=== PATIENT | female | born 1940 | race Caucasian/White ===

== ENCOUNTER 2016-10-24 17:19 | Inpatient (IN) | payer MEDICARE, BC ==
[2016-10-24] MEDS ORDERED: HEPARIN SODIUM,PORCINE/D5W PMX 25,000 UNIT in DEXTROSE/WATER 1 500ML.BAG IV STA (20:55)
[2016-10-24] MEDS ORDERED: ONDANSETRON 4 MG/2 ML VIAL IVP STA (20:55)
[2016-10-24] MEDS ORDERED: MORPHINE SULFATE 4 MG/ML SYRINGE IV STA (20:55)
[2016-10-24] MEDS ORDERED: METOPROLOL TARTRATE 25 MG TAB PO PRN (20:57)
[2016-10-24] MEDS ORDERED: ALPRAZolam 0.25 MG TAB PO SCH (21:00)
[2016-10-24] MEDS ORDERED: ATORVASTATIN 10 MG TAB PO SCH (21:00)
[2016-10-24] MEDS ORDERED: NITROGLYCERIN-D5W PMX 50 MG in DEXTROSE/WATER 1 250ML.BAG IV SCH (21:00)
[2016-10-24] MEDS: LISINOPRIL 20 MG TAB PO SCH (22:16)
[2016-10-24 22:29] LABS: Basophils % (A) 1 %; CH 28.9; CHCM 32.8; Eosinophils # (A) 0.1 k/uL (0-0.7); Eosinophils % (A) 2 %; HCT 38.9 % (34.0-46.0); HDW 2.41; HGB 12.4 gm/dL (11.4-16.0); Luc # (Auto) 0.13; Luc % (Auto) 2; Lymphocytes # (A) 1.7 k/uL (1.0-4.8); Lymphocytes % (A) 24 %; MCH 28.3 pg (25.0-35.0); MCV 88.4 fL (80.0-100.0); Monocytes # (A) 0.5 k/uL (0-1.0); Monocytes % (A) 7 %; Neutrophils # (A) 4.5 k/uL (1.3-7.7); Neutrophils % (A) 65 %; RBC 4.41 m/uL (3.80-5.40); RDW 13.6 % (11.5-15.5); WBC 6.9 k/uL (3.8-10.6); WBC (Perox) 7.14
[2016-10-24 22:40] LABS: ALT 25 U/L (9-52); AST 14 U/L (14-36); Alkaline Phosphatase 58 U/L (38-126); Anion Gap 11 mmol/L; Blood Urea Nitrogen 21 mg/dL (7-17); Calcium 9.3 mg/dL (8.4-10.2); Carbon Dioxide 27 mmol/L (22-30); Chloride 105 mmol/L (98-107); Glucose 113 mg/dL (74-99); Non-African American GFR(MDRD) >60 (>60 ml/min/1.73 sqM); Potassium 3.9 mmol/L (3.5-5.1); Sodium 143 mmol/L (137-145); Total Bilirubin 0.7 mg/dL (0.2-1.3); Total Protein 6.4 g/dL (6.3-8.2)
--- NOTE | 2016-10-24 22:48 | XR ---
EXAMINATION TYPE: XR chest 2V DATE OF EXAM: 10/24/2016 10:31 PM COMPARISON: 11/25/2009 HISTORY: Chest pressure TECHNIQUE: Frontal and lateral views of the chest are obtained. FINDINGS: There is no heart failure nor confluent pneumonic infiltrate. Costophrenic angles are amish r. There are chest leads. There is a thoracic dextroscoliosis. IMPRESSION: No active cardiopulmonary disease. No change.
[2016-10-24 22:52] LABS: Creatine Kinase 41 U/L (30-135); INR 2.2 (<1.1); Partial Thromboplastin Time 28.7 sec (22.0-30.0); Prothrombin Time 20.9 sec (9.0-12.0)
[2016-10-24 23:05] LABS: Creatine Kinase MB 0.9 ng/mL (0.0-2.4); Troponin I <0.012 ng/mL (0.000-0.034)
[2016-10-25] MEDS: NITROGLYCERIN OINT 1 INCH/GM PACKET TOPICAL SCH ×2 (00:08→06:48)
[2016-10-25] MEDS: LISINOPRIL 20 MG TAB PO SCH (06:48)
[2016-10-25 08:33] LABS: INR 2.2 (<1.1); Prothrombin Time 21.1 sec (9.0-12.0)
[2016-10-25 08:41] LABS: Anion Gap 10 mmol/L; Blood Urea Nitrogen 19 mg/dL (7-17); Calcium 9.2 mg/dL (8.4-10.2); Carbon Dioxide 26 mmol/L (22-30); Chloride 107 mmol/L (98-107); Glucose 91 mg/dL (74-99); Non-African American GFR(MDRD) >60 (>60 ml/min/1.73 sqM); Sodium 143 mmol/L (137-145)
[2016-10-25] MEDS ORDERED: ALPRAZolam 0.25 MG TAB PO PRN (08:46)
[2016-10-25] MEDS ORDERED: SODIUM CHLORIDE 0.9% 1,000 ML in EMPTY BAG 1 BAG IV ONE (08:46)
[2016-10-25] MEDS ORDERED: ASPIRIN 325 MG TAB PO STA (08:46)
[2016-10-25] MEDS ORDERED: ALPRAZolam 0.5 MG TAB PO PRN (08:46)
[2016-10-25] MEDS ORDERED: NITROGLYCERIN SL TABS 0.4 MG TAB SUBLINGUAL PRN (08:46)
[2016-10-25] MEDS ORDERED: ATORVASTATIN 80 MG TAB PO STA (08:46)
[2016-10-25] MEDS ORDERED: ASPIRIN 81 MG CHEW PO SCH (09:00)
[2016-10-25 10:19] VITALS: RESP 18
--- NOTE | 2016-10-25 10:38 | CONS ---
DATE OF CONSULTATION: Mrs. Dudley is a 76-year-old lady with a known history of hypertension, hypercholesterolemia, SVT, status post radiofrequency ablation who also has paroxysmal atrial fibrillation. This lady had a stress test in September, which was unremarkable. However, she went to [facility] with complaints of chest heaviness and pressure across her chest with abnormal EKG with precordial ST depression and prominent R waves in precordial leads raising the possibility of ischemia. She received sublingual nitroglycerin and felt better and the chest pain symptoms were resolved. She was then transferred here for followup and coronary angiography. This lady has history of previous cardiac cath more than 5 years ago, which revealed moderate disease in circumflex coronary artery and she had a dominant right coronary artery. She has a small PFO as well. In view of her symptomatology, presentation, EKG changes, she has been transferred to [facility] and I have advised her to have a cardiac catheterization. I explained to her the rationale, the risks, benefits, and options. She understands all details and wishes to proceed with the procedure. PAST MEDICAL HISTORY: 1. Hypertension. 2. Hypercholesterolemia. 3. History of SVT, status post radiofrequency ablation. 4. Paroxysmal atrial fibrillation on Coumadin maintaining sinus rhythm. 5. History of previous cardiac catheterization for chest pain, which did not reveal significant disease. Medications at home include Coumadin, Accupril, aspirin, Crestor, Xanax p.r.n. On examination, blood pressure is 130/70, pulse rate is about 70 per minute, regular. HEENT: Unremarkable. Fundus was not examined by me. Neck is supple. No JVD. I do not hear a carotid bruit. Heart exam reveals S1 and S2 heard normally without a rub, murmur or gallop. Lungs are clear. Abdomen is soft, nontender. Lower extremities reveal normal pulses. No edema. Central nervous system is normal. Initial EKG at [facility] reveals sinus mechanism with precordial ST depression and prominent R waves. Repeat EKG after sublingual nitroglycerin showed remarkable improvement. IMPRESSION: 1. Unstable angina. 2. Hypertension. 3. Hyperlipidemia. 4. History of supraventricular tachycardia, status post radiofrequency ablation. 5. History of paroxysmal atrial fibrillation on anticoagulation. RECOMMENDATIONS: I have advised coronary angiography. Risks, benefits, options and rationale were explained to the patient. She understands all details and wishes to proceed with the procedure. Her PT, INR will be checked today. She did not receive any Coumadin yesterday. I discussed my thoughts in detail with the patient. We will repeat a PT, INR and then make recommendations for cardiac catheterization.
[2016-10-25] MEDS ORDERED: LIDOCAINE 2% INJ 20 MG/ML (20 ML MDV) ONE (10:44)
[2016-10-25] MEDS ORDERED: SODIUM CHLORIDE 0.9% (PF) 10 ML VIAL ONE (10:44)
[2016-10-25] MEDS ORDERED: MIDAZOLAM 2 MG/2 ML VIAL ONE (10:44)
[2016-10-25] MEDS ORDERED: VERAPAMIL 2.5 MG/ML 2 ML AMP ONE (10:44)
[2016-10-25] MEDS ORDERED: MIDAZOLAM 2 MG/2 ML VIAL IV ONE (11:04)
[2016-10-25] MEDS ORDERED: HEPARIN SODIUM 1,000 UNIT/ML VIAL ONE (11:05)
[2016-10-25] MEDS ORDERED: LIDOCAINE 2% INJ 20 MG/ML SQ ONE (11:07)
[2016-10-25] MEDS ORDERED: VERAPAMIL SYRINGE (5 MG/10 ML) INTRAARTER ONE (11:09)
[2016-10-25] MEDS ORDERED: IOHEXOL 350 MG/ML 100 ML BOTTLE INJ ONE (11:21)
[2016-10-25] MEDS ORDERED: NITROGLYCERIN SL TABS 0.4 MG TAB SUBLINGUAL ONE ×2 (11:22→11:27)
[2016-10-25] MEDS ORDERED: SODIUM CHLORIDE 0.9% 1,000 ML IV ONE (11:24)
[2016-10-25] MEDS ORDERED: RX INFO: IV CONTRAST WAS GIVEN 1 EACH MISC MISCELLANE PRN (11:41)
[2016-10-25] MEDS ORDERED: SODIUM CHLORIDE 0.9% 1,000 ML IV SCH (11:45)
[2016-10-25 15:43] VITALS: PULSE 58
[2016-10-25 15:45] VITALS: BP 129/60; TEMP 97.7
--- NOTE | 2016-10-25 16:28 | HP ---
H&P AND DISCHARGE SUMMARY DATE OF ADMISSION: Patient is a 76-year-old pleasant female who was transferred to my care from [facility] because of some EKG changes and chest pressure-like sensation. Patient apparently has history of SVT. Patient appears to have palpitations and SVT with pressure, because of which there was concern about acute coronary syndrome, because of which patient was transferred here for cardiac catheterization. Patient underwent coronary angiography which did not show any significant stentable lesions. Please refer to kiln pusher's dictation for further details. Patient denied any pleuritic chest pain. Patient's chest pain is completely resolved at this point of time. Patient's chest pain was not associated with food. Patient was a little short of breath at that time, but patient denies any diaphoresis or shortness of breath now. REVIEW OF SYSTEMS: CONSTITUTIONAL: No fever, no malaise, no fatigue. HEENT: No recent visual problems or hearing problems. Denied any sore throat. CARDIOVASCULAR: No chest pain, orthopnea, PND, no palpitations, no syncope. PULMONARY: No shortness of breath, no cough, no hemoptysis. GASTROINTESTINAL: No diarrhea, no nausea, no vomiting, no abdominal pain. Normoactive bowel sounds. NEUROLOGICAL: No headaches, no weakness, no numbness. HEMATOLOGICAL: Denies any bleeding or petechiae. GENITOURINARY: Denies any burning micturition, frequency, or urgency. MUSCULOSKELETAL/RHEUMATOLOGICAL: Denies any joint pain, swelling, or any muscle pain. ENDOCRINE: Denies any polyuria or polydipsia. The rest of the 14 point review of systems is negative. PAST MEDICAL HISTORY: 1. Hypertension. 2. Hypercholesterolemia. 3. History of SVT. 4. Paroxysmal atrial fibrillation, on Coumadin. Patient is therapeutic on Coumadin. 5. Anxiety disorder. PAST SURGICAL HISTORY: 1. Appendectomy. 2. Cardiac ablation surgery. 3. Cholecystectomy. 4. Hysterectomy. 5. Joint replacement surgery. 6. Varicose veins. SOCIAL HISTORY: Denied any smoking, alcohol abuse or any drug abuse. FAMILY HISTORY: Significant for pancreatic cancer in the family. PHYSICAL EXAMINATION: VITAL SIGNS: Temperature 97.2, pulse of 58, respiratory rate of 18. Blood pressure is 139/69. Saturating at 96% on room air. GENERAL: The patient is alert and oriented x3, not in any acute distress. Well developed, well nourished. HEENT: Pupils are round and equally reacting to light. EOMI. No scleral icterus. No conjunctival pallor. Normocephalic, atraumatic. No pharyngeal erythema. No thyromegaly. CARDIOVASCULAR: S1 and S2 present. No murmurs, rubs, or gallops. PULMONARY: Chest is clear to auscultation, no wheezing or crackles. ABDOMEN: Soft, nontender, nondistended, normoactive bowel sounds. No palpable organomegaly. MUSCULOSKELETAL: No joint swelling or deformity. EXTREMITIES: No cyanosis, clubbing, or pedal edema. NEUROLOGICAL: Gross neurological examination did not reveal any focal deficits. SKIN: No rashes. LABORATORY DATA: CBC, CMP essentially within normal limits. INR is therapeutic. ASSESSMENT AND PLAN: 1. Chest pain. Ruled out unstable angina. Patient underwent cardiac catheterization which did not show any significant coronary occlusion. Patient's chest pressure is probably related to her episode of SVT or atrial fibrillation. 2. Paroxysmal atrial fibrillation. 3. Hypertension. 4. Hyperlipidemia. 5. Gastroesophageal reflux disease. Patient is otherwise clinically doing well. Underwent cardiac catheterization. Is cleared for discharge by Dr. Andi Quiñonez. Patient will follow with Dr. Andi Quiñonez on November 01 at 8:15. Cardiac diet. Activity as tolerated. Patient will be discharged today after 6 p.m. after she is done with bed rest for cardiac catheterization. This dictation is both H&P and discharge summary.
--- NOTE | 2016-10-25 21:18 | CC ---
DATE OF SERVICE: 10/25/2016. PROCEDURE: Left heart catheterization, coronary angiography and left ventriculography. PERFORMED BY: Dr. Andi Quiñonez. CLINICAL INFORMATION: Mrs. Farheen Dudley is a 76-year-old lady with a history of hypertension, hypercholesterolemia, ( ) status post radiofrequency ablation with paroxysmal atrial fibrillation on Coumadin who came into [facility] with chest pain and had EKG changes and responded with sublingual nitroglycerin. She had a negative stress test about a month ago. Given her presentation with EKG changes, she was advised cardiac catheterization after due discussion of risks, benefits, and options. PROCEDURE NOTE: Under local anesthesia and strict aseptic precautions, a 6 Danish introducer was placed in the right radial artery. Using an Ultima one catheter, I performed selective coronary angiography and a pigtail catheter was used to perform LV gram. The catheter and sheath was taken out and TR band applied as per protocol and saturations of the fingers of the right hand was excellent. She did not receive any IV heparin. Her INR was 2.2. She was sent to the room in stable condition. Results were discussed with the patient at length, but there was no family available. CARDIAC CATHETERIZATION FINDINGS: The left ventricle end-diastolic pressure was about 16 mmHg without significant change after the LV gram and there was no gradient across aortic valve. CORONARY ANGIOGRAPHY FINDINGS: RIGHT CORONARY ARTERY: Large dominant, disease-free vessel that bifurcates distally into PDA and PLV, and supplies a sizable amount of myocardium. There are minor irregularities, but no significant obstructive disease is noted. LEFT MAIN CORONARY ARTERY: A short, patent, disease-free vessel that bifurcates into LAD and circumflex. LEFT ANTERIOR DESCENDING CORONARY ARTERY: Good caliber vessel extends along the anterior wall, gives off septal and one large diagonal branch and runs all the way to the apex. There are several septal branches with minor irregularities. There is no significant disease in the entire LAD system. LEFT POSTERIOR CIRCUMFLEX CORONARY ARTERY: Technically, a nondominant/codominant vessel, which has minor irregularities; gives off one large obtuse minor and the distal posterolateral branch. Both of these branches have minor irregularities. No significant obstructive disease. The proximal circumflex has minor irregularities of about 30% or so. There is no significant disease in the codominant/nondominant circumflex system. LEFT VENTRICULOGRAM: This was performed in 30 degree DOUGLASS projection and revealed normal left ventricular size and systolic function without any segmental wall motion and ejection fraction of 60% without mitral regurgitation. There was some ectopy noted. FINAL IMPRESSION: This patient has a right dominant/codominant system without significant obstructive coronary artery disease. LV systolic function is well preserved. Feeling pressures are mildly elevated. RECOMMENDATIONS: Findings were discussed with the patient. There is no family, available. She will be discharged later on today and I will see her in the office in one week. I have asked her to cut down the Coumadin dose and gave her specific instructions to hold Coumadin for 48 hours and then resume it at 7.5 milligrams tablets 1-1/2 alternating. I will see her in the office next week.
--- NOTE | 2016-10-25 21:20 | LTR ---
October 25, 2016 RE: OctaviaFarheen Dear Dr. Mckeon: Thank you for the opportunity to participate in the care of Mrs. Dudley and I am pleased to report to that this lady does not have any significant obstructive CAD. She presented to the ER at [facility] with chest pain and EKG changes. However, there is no evidence to suggest any obstructive CAD. Continued medical therapy with risk factor modification is advised and she will be discharged later on today if she remains stable. Thank you for your referral. Please call for questions. With kindest regards, Sincerely, MICAELA PAL MD
== END 2016-10-25 19:34 | disposition home or self-care (01) | DRG 287 ==
LOC: 6SEL 19:42
PROVIDERS: ADMIT Hospitalist; ATTEND Hospitalist
PROC: B2111ZZ Fluoroscopy of Multiple Coronary Arteries using Low Osmolar Contrast (ICD-10-PCS; 2016-10-25)
PROC: B2151ZZ Fluoroscopy of Left Heart using Low Osmolar Contrast (ICD-10-PCS; 2016-10-25)
PROC: 4A023N7 Measurement of Cardiac Sampling and Pressure, Left Heart, Percutaneous Approach (ICD-10-PCS; principal; 2016-10-25 10:45)
DX: R07.9 Chest pain, unspecified (principal); I48.0 Paroxysmal atrial fibrillation; Q21.1 Atrial septal defect; I47.1 Supraventricular tachycardia; I25.10 Atherosclerotic heart disease of native coronary artery without angina pectoris; I10 Essential (primary) hypertension; E78.5 Hyperlipidemia, unspecified; R94.31 Abnormal electrocardiogram [ECG] [EKG]; R06.02 Shortness of breath; K21.9 Gastro-esophageal reflux disease without esophagitis; E78.00 Pure hypercholesterolemia, unspecified; F41.9 Anxiety disorder, unspecified; I83.90 Asymptomatic varicose veins of unspecified lower extremity; Z80.0 Family history of malignant neoplasm of digestive organs; Z88.2 Allergy status to sulfonamides; Z91.018 Allergy to other foods; Z79.01 Long term (current) use of anticoagulants; Z79.82 Long term (current) use of aspirin; Z79.899 Other long term (current) drug therapy; Z90.49 Acquired absence of other specified parts of digestive tract; Z90.710 Acquired absence of both cervix and uterus; Z96.60 Presence of unspecified orthopedic joint implant
CPT/HCPCS: 71020; 80048; 80053; 82550; 82553; 83735; 84484; 85025; 85610; 85730; 93458

== ENCOUNTER → 2018-03-15 | Outpatient (CLI) | payer MEDICARE, BC ==
[2018-03-15 18:56] LABS: Anion Gap 11 mmol/L; Blood Urea Nitrogen 22 mg/dL (7-17); Calcium 9.8 mg/dL (8.4-10.2); Carbon Dioxide 31 mmol/L (22-30); Chloride 100 mmol/L (98-107); Glucose 86 mg/dL (74-99); Magnesium 2.1 mg/dL (1.6-2.3); Potassium 4.3 mmol/L (3.5-5.1); Sodium 142 mmol/L (137-145)
== END | disposition home or self-care (01) ==
LOC: LABMAIN 17:56
PROVIDERS: ATTEND Internal Medicine Interventional Cardiology
DX: I10 Essential (primary) hypertension (principal); I48.0 Paroxysmal atrial fibrillation
CPT/HCPCS: 36415; 80048; 83735

== ENCOUNTER → 2018-05-01 | Outpatient (CLI) | payer MEDICARE, BC ==
[2018-05-01 12:59] LABS: Anion Gap 8 mmol/L; Blood Urea Nitrogen 21 mg/dL (7-17); Calcium 9.1 mg/dL (8.4-10.2); Carbon Dioxide 29 mmol/L (22-30); Chloride 104 mmol/L (98-107); Glucose 86 mg/dL (74-99); Potassium 4.3 mmol/L (3.5-5.1); Sodium 141 mmol/L (137-145)
== END | disposition home or self-care (01) ==
LOC: LABWHC1 11:36
PROVIDERS: ATTEND Internal Medicine Interventional Cardiology
DX: I48.0 Paroxysmal atrial fibrillation (principal); I10 Essential (primary) hypertension; Z79.899 Other long term (current) drug therapy
CPT/HCPCS: 36415; 80048

== ENCOUNTER → 2019-05-20 | Outpatient (CLI) | payer MEDICARE, BC ==
[2019-05-20 16:21] LABS: African American GFR (CKD) 101.9 (60.0-200.0); Anion Gap 7.4 mmol/L (4.00-12.00); BUN/Creat Ratio 31.67 Ratio (12.00-20.00); Calcium 9.4 mg/dL (8.7-10.3); Carbon Dioxide 30.6 mmol/L (21.6-31.8); Potassium 4.4 mmol/L (3.5-5.5)
== END | disposition home or self-care (01) ==
LOC: LABWHC1 10:21
PROVIDERS: ATTEND Nurse Practitioner
DX: I10 Essential (primary) hypertension (principal)
CPT/HCPCS: 36415; 80048; 83735

== ENCOUNTER → 2021-06-06 | Outpatient (CLI) | payer MEDICARE, BC ==
[2021-06-06 22:47] LABS: HCT 40.1 % (37.2-46.3); HGB 12.7 g/dL (12.0-15.0); MCH 29.4 pg (27.0-32.0); MCHC 31.7 g/dL (32.0-37.0); MCV 92.8 fL (80.0-97.0); Mean Platelet Volume 10.2 fL (9.5-12.2); Platelet Count 242 X 10*3/uL (140-440); RBC 4.32 X 10*6/uL (4.10-5.20); RDW 13.3 % (11.5-14.5); WBC 7.12 X 10*3/uL (4.50-10.00)
[2021-06-07 03:40] LABS: African American GFR (CKD) 100.5 (60.0-200.0); Albumin 4.1 g/dL (3.80-4.90); Albumin/Globulin Ratio 1.95 (1.60-3.17); Anion Gap 9.8 mmol/L (4.00-12.00); Calcium 9.3 mg/dL (8.7-10.3); Carbon Dioxide 27.2 mmol/L (21.6-31.8); Globulin 2.1 g/dL (1.6-3.3); Magnesium 1.9 mg/dL (1.5-2.4); Non-African American GFR(CKD) 86.7 (60.0-200.0); Potassium 4.1 mmol/L (3.5-5.5); Total Bilirubin 0.7 mg/dL (0.3-1.2); Total Protein 6.2 g/dL (6.2-8.2)
== END | disposition home or self-care (01) ==
LOC: LABWHC1 16:22
PROVIDERS: ATTEND Internal Medicine Interventional Cardiology
DX: E03.9 Hypothyroidism, unspecified (principal); I10 Essential (primary) hypertension; I48.91 Unspecified atrial fibrillation
CPT/HCPCS: 36415; 80053; 83735; 84443; 85027

== ENCOUNTER → 2021-09-06 | Outpatient (CLI) | payer MEDICARE, BC ==
--- NOTE | 2021-09-06 16:50 | US ---
EXAMINATION TYPE: US venous doppler duplex LE LT DATE OF EXAM: 09/06/2021 4:25 PM COMPARISON: NONE CLINICAL HISTORY: M25.562 Pain in left knee, I80.9 Phlebitis and thrombophlebi. Left knee pain and sw elling for the past week. SIDE PERFORMED: TECHNIQUE: The lower extremity deep venous system is examined utilizing real time linear array sonog katelyn with graded compression, doppler sonography and color-flow sonography. VESSELS IMAGED: Common Femoral Vein Deep Femoral Vein Greater Saphenous Vein * Femoral Vein Popliteal Vein Small Saphenous Vein * Proximal Calf Veins (* superficial vessels) Left Leg: Negative for DVT Great Saphenous Vein removed IMPRESSION: No evidence of deep vein thrombosis in the left leg.
== END | disposition home or self-care (01) ==
LOC: RADUSWWP 15:46
PROVIDERS: ATTEND Orthopaedic Surgery Sports Medicine
DX: M25.562 Pain in left knee (principal); R22.42 Localized swelling, mass and lump, left lower limb

== ENCOUNTER → 2021-09-16 | Outpatient (CLI) | payer MEDICARE, BC ==
--- NOTE | 2021-09-16 09:44 | CT ---
EXAMINATION TYPE: CT knee LT wo con DATE OF EXAM: 09/16/2021 COMPARISON: None HISTORY: Trauma 3 weeks ago with left knee pain and swelling CT DLP: 1815 mGycm Automated exposure control for dose reduction was used. Contrast: None Technique: Axial images 3 mm thick sections. Reconstructed images in coronal and sagittal plane. FINDINGS: No acute fractures are evident. Femoral and tibial prostheses are present. There is a large joint effusion and suprapatellar joint space. IMPRESSION: 1. LARGE JOINT EFFUSION. 2. NO ACUTE OSSEOUS
== END | disposition home or self-care (01) ==
LOC: RADCTMAIN 07:10
PROVIDERS: ATTEND Orthopaedic Surgery Sports Medicine
DX: M25.462 Effusion, left knee (principal); S89.92XA Unspecified injury of left lower leg, initial encounter

== ENCOUNTER → 2022-02-28 | Outpatient (CLI) | payer MEDICARE, BC ==
--- NOTE | 2022-03-01 06:39 | MR ---
EXAMINATION TYPE: MR cervical spine wo con DATE OF EXAM: 02/28/2022 COMPARISON: None HISTORY: Neck pain. Multiplanar multiecho imaging of the cervical spine without contrast. Cervical vertebra show slight straightening. There is degenerative mild disc space narrowing througho ut the cervical spine. There are small posterior disc bulging and herniation at C5-6 and C6-7. Cervic al spinal cord has normal signal pattern. No edema. No spinal stenosis. There is developmentally larg e spinal canal. Canal measures 10 mm at C5-6 which is the narrowest point. The brainstem is intact. T here is no cervical paraspinal mass. There is right-sided C5-6 neural foraminal impingement due to un covertebral spurring. IMPRESSION: Spondylotic changes. No spinal stenosis. Right-sided C5-6 neural foraminal narrowing.
== END | disposition home or self-care (01) ==
LOC: RADMRIMAIN 16:23
PROVIDERS: ATTEND Orthopaedic Surgery Orthopaedic Surgery of the Spine
DX: M47.812 Spondylosis without myelopathy or radiculopathy, cervical region (principal)
CPT/HCPCS: 72141

== ENCOUNTER → 2022-04-07 | Outpatient (CLI) | payer MEDICARE, BC ==
--- NOTE | 2022-04-17 23:30 | PE ---
EXAMINATION TYPE: PET CT fusion skull to thigh DATE OF EXAM: 04/07/2022 COMPARISON: NONE HISTORY: Lung nodule right middle lobe TECHNIQUE: Following the intravenous administration of 11.5 mCi of F-18 FDG, whole body images are p erformed from the skull base to the midthigh. Images are reviewed on the computer in the coronal, ax ial, and sagittal planes. Reconstructed rotating images are created on independent workstation and r eviewed on the computer. A localization and attenuation correction CT is performed in conjunction w ith the PET scan. Blood glucose level equals 92 SCAN: Initial Scan FINDINGS: SKULL BASE AND NECK: No areas of abnormal hypermetabolic uptake. CHEST, MEDIASTINUM, AND HILAR REGION: Mild to moderate underlying emphysematous change. Areas of mosa ic attenuation and groundglass opacity bilaterally favor edema and/or atelectasis. There is 2.5 x 2.3 cm nodule or nodular consolidation superior right lower lobe axial image 96 is ametabolic. No areas of abnormal hypermetabolic uptake throughout the thorax. ABDOMEN AND PELVIS: No areas of abnormal hypermetabolic uptake. No adrenal masses. Normal excretion. OSSEOUS STRUCTURES: No areas of abnormal hypermetabolic uptake. OTHER CT: Dextroconvex scoliosis centered in the mid thoracic spine. Moderate narrowing of both hip j oints. Facet arthropathy lower lumbar spine. Cardiomegaly with prominent pulmonary arteries suggesting underlying pulmonary artery hypertension. C oronary artery calcification is present. Ascending aorta measures up to 3.8 cm in diameter. Low-lying lateral prolapse. Uterus surgically absent. IMPRESSION: No areas of abnormal hypermetabolic uptake to suggest malignancy. Differential includes i nfectious etiology versus low-grade neoplasm such as bronchioloalveolar carcinoma.
== END | disposition home or self-care (01) ==
LOC: RADXRMAIN 09:14
PROVIDERS: ATTEND Internal Medicine Critical Care Medicine
DX: D02.21 Carcinoma in situ of right bronchus and lung (principal)
CPT/HCPCS: 78815; A9552

== ENCOUNTER → 2023-10-11 | Outpatient (CLI) | payer MEDICARE, BC ==
--- NOTE | 2023-10-15 15:48 | PE ---
EXAMINATION TYPE: PET CT fusion skull to thigh DATE OF EXAM: 10/11/2023 COMPARISON: None Prior PET/CT: 04/07/2022 HISTORY: Lung cancer TECHNIQUE: Following the intravenous administration of 11.57 mCi of F-18 FDG, whole body images are performed from the skull base to the midthigh. Images are reviewed on the computer in the coronal, a xial, and sagittal planes. Reconstructed rotating images are created on independent workstation and reviewed on the computer. A localization and attenuation correction CT is performed in conjunction with the PET scan. DLP: 1180.86 mGycm SCAN: Subsequent Blood glucose: 89 mg/dL Average Mediastinum SUV: 2.55 Average Liver SUV: 3.05 FINDINGS: NECK: No abnormal uptake THORAX: There is minimal uptake within the posterior right lung density. SUV has a mean of 0.85, max SUV 1.8. Previous SUV 0.7 with a max SUV of 1.11. No suspicious mediastinal uptake is evident. ABDOMEN: No abnormal uptake PELVIS: No abnormal intraperitoneal uptake. There is some mild uptake within soft tissue irregular density posterior lateral to the left hip, exa mple image 255, SUV 4.11. OSSEOUS STRUCTURES: No suspicious uptake. LOCALIZATION CT: There is been prior neck surgery. Right lung mass measures 3.8 x 3.2 cm. Previous me asurement 2.5 x 2.3 cm COMPARISON: Size of the posterior right lung lesion is increasing over the interval. While remaining within the intermediate range, the SUV has slightly increased over the interval, lesion within the po sterior lateral left hip is an interval development. IMPRESSION: 1. Increasing size of a posterior right lung density. SUV value has increased subtly but remains with in the inflammatory range. Low metabolic neoplasm is not excluded. Infectious etiology could be consi dered. 2. New lesion within the posterior lateral left subcutaneous tissues. Inflammatory change from trauma or infection could be considered. Metastatic disease is considered less likely
== END | disposition home or self-care (01) ==
LOC: RADPETMAIN 13:42
PROVIDERS: ATTEND Internal Medicine Critical Care Medicine
DX: J98.4 Other disorders of lung (principal); R91.8 Other nonspecific abnormal finding of lung field
CPT/HCPCS: 78815; A9552

== ENCOUNTER 2023-11-08 12:46 | Day surgery (SDC) | payer MEDICARE, BC ==
[2023-11-05 13:52] VITALS: BMI 30.5
[~2023-11-08 12:46] MED LIST: LACTATED RINGERS 1,000 ML IV SCH
[2023-11-08 13:52] VITALS: RESP 16
--- NOTE | 2023-11-08 13:56 | CT ---
EXAMINATION TYPE: CT Chest alfred Bella Protocol DATE OF EXAM: 11/08/2023 COMPARISON: HISTORY: Ion robot bronchoscopy CT DLP: 381.70 mGycm Automated exposure control for dose reduction was used. Contrast: None Technique: Axial images [address] for bronchoscopy guidance FINDINGS: There is a 0.7 cm nodule posterior left apex. Series 4 image 39. There is an irregular 3.8 cm density posterior right lower lobe. Example Series 4 image 162. There is a 0.8 cm peripheral nodule within the right lower lobe. Series 4 image 206. There appears to be some mild peribronchial thickening. The ascending thoracic aorta at the level of the main pulmonary artery is 3.8 cm. Main pulmonary bi ry at bifurcation is 3.2 cm. IMPRESSION: 1. CT FOR BRONCHOSCOPY GUIDANCE. 2. 3.8 CM MASS RIGHT LOWER LOBE. 3. ADDITIONAL SMALL NODULES PRESENT.
[2023-11-08 14:21] LABS: HCT 37.2 % (34.0-46.0); HGB 12.6 gm/dL (11.4-16.0); MCH 31.1 pg (25.0-35.0); MCHC 33.7 g/dL (31.0-37.0); Mean Platelet Volume 8.1; Platelet Count 193 k/uL (150-450); RBC 4.04 m/uL (3.80-5.40); RDW 12.9 % (11.5-15.5); WBC 8.3 k/uL (3.8-10.6)
[2023-11-08] MEDS ORDERED: LIDOCAINE 1% INJ 10MG/ML (20 ML MDV) ONE (14:32)
[2023-11-08] MEDS ORDERED: SUCCINYLCHOLINE CHLORIDE 200 MG/10 ML VIAL IV ONE (14:32)
[2023-11-08] MEDS ORDERED: fentaNYL (PF) 50 MCG/ML 2 ML AMP ONE (14:32)
[2023-11-08] MEDS ORDERED: GLYCOPYRROLATE 0.2 MG/ML 2 ML VIAL ONE (14:32)
[2023-11-08] MEDS ORDERED: ePHEDrine 50 MG/ML 1 ML VIAL ONE (14:32)
[2023-11-08] MEDS ORDERED: PHENYLEPHRINE-0.9% NACL SYG 1,000 MCG/10 ML SYRINGE ONE (14:32)
[2023-11-08] MEDS ORDERED: NEOSTIGMINE 1 MG/ML 10 ML VIAL ONE (14:32)
[2023-11-08] MEDS ORDERED: ROCURONIUM 10 MG/ML (5 ML VIAL) IV ONE (14:32)
[2023-11-08] MEDS ORDERED: PROPOFOL 10 MG/ML 20 ML VIAL IV ONE (14:32)
[2023-11-08 14:34] LABS: African American GFR (CKD) >90 (>60 ml/min/1.73 sqM); Anion Gap 7 mmol/L; Blood Urea Nitrogen 30 mg/dL (7-17); Calcium 9.5 mg/dL (8.4-10.2); Carbon Dioxide 28 mmol/L (22-30); Chloride 105 mmol/L (98-107); Glucose 96 mg/dL (74-99); Non-African American GFR(CKD) 88 (>60 ml/min/1.73 sqM); Potassium 4.3 mmol/L (3.5-5.1); Sodium 140 mmol/L (137-145)
[2023-11-08] MEDS ORDERED: IV FLUID CONTINUATION 1,000 ML IV ONE (15:24)
--- NOTE | 2023-11-08 15:49 | P.PCN ---
Date of Procedure: 11/08/23 Operative Findings: Right lower lobe mass, PET avid Postoperative Diagnosis: Right lower lobe mass, PET avid Procedure(s) Performed: Flexible bronchoscopy Robotic-assisted transbronchial needle aspirate, transbronchial biopsies, transbronchial brushing of the right lower lobe pulmonary mass, including transbronchial biopsy , transbronchial brushing and a BAL of the RLL Endobronchial ultrasound Endobronchial ultrasound-guided transbronchial needle aspirates of the subcarinal station 7 lymph node. Anesthesia: GETA Surgeon: Ines Romero Estimated Blood Loss (ml): 0 Pathology: other Condition: stable Disposition: same day Operative Findings: A physical exam was performed. Informed consent was obtained from the patient after explaining all the risks (pneumothorax, life threatening bleeding, infection and adverse effects due to medications), benefits and alternatives to the procedure which the patient appeared to understand and so stated. The patient was connected to the monitoring devices. General anesthesia was induced and the patient was intubated by anesthesia. A final timeout was performed and the procedure confirmed by the attending staff bronchoscopist. The bronchoscope was inserted and the airway examined. The airway examination revealed a normal trachea and normal airways. The flexible bronchoscope was removed and the robotic bronchoscope was inserted. Registration was completed. I next guided the robotic bronchoscope using the navigation system into the right lower lobe posterior segment. Once in proper position, the bronchoscope was frozen. The radial EBUS probe was placed through the bronchoscope and confirmed abnormal u/s images vs normal lung. A needle was placed through the working channel and under fluoroscopic guidance, we sampled the area thought to have the mass twice. We then used a cloud biopsy pattern with ultrasound confirmation for 2 additional passes with the needle. U/S evaluation was then used to reconfirm location. Forceps were next introduced through working channel and extended the appropriate distance and 3 transbronchial biopsies were performed using fluoroscopic guidance. The u/s probe was then reinserted to confirm location. When confirmed this process was repeated for a total of 6 transbronchial biopsies. 40ml of saline was then instilled into the area of the lesion. The robotic bronchoscope was removed and the airway inspected with a flexible bronchoscope and 10 ml of effluent from the BAL was collected. The aspirate was bloody and ultimately declotted and based on that, the sample was discarded. Fluoroscopic check for pneumothorax was negative upon completion of the procedure. There was 0 ml blood loss with the procedure. At that point, the robot was disconnected. Endobronchial ultrasound was inserted and full evaluation of the mediastinum was done. Based on the EBUS evaluation of the mediastinum, a 11 mm subcarinal station 7 lymph node was identified. The rest of the mediastinal evaluation was negative for any significant pathologic lymph nodes. At that point, using a 22-gauge vizishot needle , transbronchilal needle aspirate of the subcarinal lymph node was done and a total of 3 passes were obtained. No complications. Endobronchial ultrasound was removed. Flex bronchoscope was inserted and regular suctioning was done. At the completion of the procedure, no residual secretions or bloody material within the airway. The bronchoscope was removed. The patient was extubated. FINDINGS: 1.The airways are normal. 2 Successful navigation, ultrasonographic identification, and biopsies of right lower lobe pulmonary mass 3.The the radial ultrasound view was concentric 4 endobronchial ultrasound and transbronchial needle aspirate of the subcarinal lymph node, station 7. RECOMMENDATIONS: Await pathology and cytology results The referring physician will be alerted to the results when available. The patient was advised to follow up with the referring physician with the biopsy results Patient will be called with results.
[2023-11-08 16:00] VITALS: TEMP 97
--- NOTE | 2023-11-08 16:18 | XR ---
EXAMINATION TYPE: XR chest 1V DATE OF EXAM: 11/08/2023 4:13 PM CLINICAL INDICATION:Female, 83 years old with history of post bx; [facility] COMPARISON: Chest radiographs from TECHNIQUE: XR chest 1V Frontal view of the chest. FINDINGS: Lungs/Pleura: Right perihilar mass is redemonstrated. Flattening of the diaphragms with increased hui ency along apices. There is no evidence of pleural effusion, focal consolidation, or pneumothorax. Pulmonary vascularity: Unremarkable. Heart/mediastinum: Cardiomediastinal silhouette is enlarged and stable. Musculoskeletal: No acute osseous pathology. IMPRESSION: Right perihilar mass. No evidence for pneumothorax.
--- NOTE | 2023-11-08 16:19 | FL ---
EXAMINATION TYPE: FL bronchoscopy Intraoperative/procedural fluoroscopic services were provided. Tota l fluoroscopy time is 2 minutes 36 seconds with a total of 3 submitted images to PACS. Please see the operative/procedural note for further details. DAP: 4.6829 Gycm2
[2023-11-08 17:12] VITALS: BP 152/72; PULSE 50
== END 2023-11-08 17:16 | disposition home or self-care (01) ==
LOC: ORWHC2ENDO 12:46
PROVIDERS: ATTEND Internal Medicine Critical Care Medicine
DX: C34.31 Malignant neoplasm of lower lobe, right bronchus or lung (principal); I48.91 Unspecified atrial fibrillation; I10 Essential (primary) hypertension; E78.5 Hyperlipidemia, unspecified; F41.9 Anxiety disorder, unspecified; G62.9 Polyneuropathy, unspecified; Z79.899 Other long term (current) drug therapy; Z79.01 Long term (current) use of anticoagulants; Z88.1 Allergy status to other antibiotic agents; Z88.2 Allergy status to sulfonamides; Z88.8 Allergy status to other drugs, medicaments and biological substances; Z91.048 Other nonmedicinal substance allergy status; Z90.49 Acquired absence of other specified parts of digestive tract; Z90.710 Acquired absence of both cervix and uterus; Z96.653 Presence of artificial knee joint, bilateral; Z98.890 Other specified postprocedural states; Z86.718 Personal history of other venous thrombosis and embolism
CPT/HCPCS: 87798 ×3; 87496; 87498; 87529; 88305; 80048; 85027; 88342; 87502; 87634; 88341; 87070; 87205; 87116; 87102; 87206; 87635; 71045; 71250; 31628; 31629; 31623; 31624; 31652; J0330; J2710; J2001; J3010; J2704; J2371; S2900

== ENCOUNTER → 2024-01-16 | Outpatient (CLI) | payer MEDICARE, BC ==
[2024-01-16 14:45] LABS: INR 0.9 (<1.2); Partial Thromboplastin Time 25.3 sec (22.0-30.0); Prothrombin Time 10.4 sec (10.0-12.5)
[2024-01-16 18:49] LABS: Basophils # (A) 0.06 X 10*3/uL (0.00-0.10); Basophils % (A) 0.7 %; Eosinophils % (A) 1.2 %; HCT 38.2 % (37.2-46.3); HGB 12.2 g/dL (12.0-15.0); Lymphocytes # (A) 1.66 X 10*3/uL (0.90-5.00); Lymphocytes % (A) 19.4 %; MCH 30.1 pg (27.0-32.0); MCHC 31.9 g/dL (32.0-37.0); MCV 94.3 FL (80.0-97.0); Mean Platelet Volume 10.2 FL (9.5-12.2); NRBC Per 100 WBC 0 X 10*3/uL (0.00-0.01); Neutrophils # (A) 6.12 X 10*3/uL (1.80-7.70); Neutrophils % (A) 71.3 %; Platelet Count 240 X 10*3/uL (140-440); RBC 4.05 X 10*6/uL (4.10-5.20); RDW 12.8 % (11.5-14.5); WBC 8.57 X 10*3/uL (4.50-10.00)
[2024-01-16 19:10] LABS: Chloride 103 mmol/L (96-109); Glucose 118 mg/dL (70-110); Sodium 142 mmol/L (135-145)
== END | disposition home or self-care (01) ==
LOC: LABPAT 13:26
PROVIDERS: ATTEND Thoracic Surgery (Cardiothoracic Vascular Surgery)
DX: Z01.812 Encounter for preprocedural laboratory examination (principal); C34.31 Malignant neoplasm of lower lobe, right bronchus or lung
CPT/HCPCS: 80051; 82565; 82947; 84520; 85025; 85610; 85730; 86850; 86900; 86901

== ENCOUNTER → 2024-01-17 | Outpatient (CLI) | payer MEDICARE, BC ==
[2024-01-17 20:39] LABS: Appearance,Urine Clear (Clear); Bilirubin,Urine Negative (Negative); Blood,Urine Negative (Negative); Color,Urine Yellow (Yellow); Ketones,Urine Negative (Negative); Nitrite,Urine Negative (Negative); PH, Urine 5.5; Specific Gravity,Urine 1.018 (1.001-1.030)
[2024-01-17 21:20] LABS: Bacteria,Urine None Seen (None Seen); Calcium Oxalate Crystals,Urine Present (None Seen)
== END | disposition home or self-care (01) ==
LOC: LABPRL 09:59
PROVIDERS: ATTEND Thoracic Surgery (Cardiothoracic Vascular Surgery)
DX: Z01.812 Encounter for preprocedural laboratory examination (principal); C34.31 Malignant neoplasm of lower lobe, right bronchus or lung
CPT/HCPCS: 81001; 87086

== ENCOUNTER 2024-01-24 05:37 | Inpatient (IN) | payer MEDICARE, BC ==
[2024-01-24] MEDS ORDERED: LIDOCAINE 1% (10MG/ML) FOR IV START INTRADERMA PRN (05:45)
[2024-01-24] MEDS ORDERED: MIDAZOLAM 2 MG/2 ML VIAL IV PRN (05:45)
[2024-01-24] MEDS: LACTATED RINGERS 1,000 ML IV SCH (06:05)
[2024-01-24] MEDS: ONDANSETRON 4 MG/2 ML VIAL IVP ONE (06:53)
[2024-01-24] MEDS: MIDAZOLAM 2 MG/2 ML VIAL IVP ONE (06:59)
[2024-01-24] MEDS: fentaNYL (PF) 50 MCG/ML 2 ML AMP IVP ONE (07:00)
[2024-01-24] MEDS ORDERED: WATER FOR INJECTION, STERILE 10 ML VIAL IV ONE (07:23)
[2024-01-24] MEDS ORDERED: MIDAZOLAM 2 MG/2 ML VIAL ONE (07:23)
[2024-01-24] MEDS ORDERED: ROPIVACAINE 5 MG/ML 30 ML VIAL ONE (07:23)
[2024-01-24] MEDS ORDERED: hydrALAZINE HCL 20 MG/ML 1 ML VIAL ONE (07:23)
[2024-01-24] MEDS ORDERED: ePHEDrine 50 MG/ML 1 ML VIAL ONE (07:23)
[2024-01-24] MEDS ORDERED: ACETAMINOPHEN IV (For NPO) 1,000 MG/100 ML VIAL ONE (07:23)
[2024-01-24] MEDS ORDERED: GLYCOPYRROLATE 0.2 MG/ML 2 ML VIAL ONE (07:23)
[2024-01-24] MEDS ORDERED: LIDOCAINE 1% INJ 10MG/ML (20 ML MDV) ONE (07:23)
[2024-01-24] MEDS ORDERED: ROCURONIUM 10 MG/ML (5 ML VIAL) IV ONE (07:23)
[2024-01-24] MEDS ORDERED: PROPOFOL 10 MG/ML 20 ML VIAL IV ONE (07:23)
[2024-01-24] MEDS ORDERED: fentaNYL (PF) 50 MCG/ML 2 ML AMP ONE (07:23)
[2024-01-24] MEDS ORDERED: NEOSTIGMINE 1 MG/ML 10 ML VIAL ONE (07:23)
[2024-01-24] MEDS ORDERED: PHENYLEPHRINE 10 MG/ML VIAL ONE (07:23)
[2024-01-24] MEDS: BUPIVACAINE (PF) 0.5% 30 ML VIAL SQ ONE (07:53)
--- NOTE | 2024-01-24 10:09 | P.OP ---
Date of Procedure: 01/24/24 Preoperative Diagnosis: Lepidic Adenocarcinoma Right Lower Lobe HTN A-fib Postoperative Diagnosis: Same Procedure(s) Performed: 1. Bronchoscopy 2. Right robotic assisted thorascopic surgery with right lower lobectomy 3. Mediastinal lymph node dissection 4. Intercostal nerve block - 3 levels Implants: None Anesthesia: GETA Surgeon: Nirav Amaral Inspector Receiving #1: Job Mary Estimated Blood Loss (ml): 25 Pathology: other (RLL, LN stations, 9,8,7,4,10,11) Condition: stable Disposition: PACU Indications for Procedure: This patient is an 83 year-old F who is a lifelong non-smoker who had a routine cxr as work-up related to her hip which revealed a nodule. Further work-up of the nodule revealed a lepidic adenocarcinoma without evidence of metastatic disease. The patient was deemed a good surgical candidate for resection. Operative Findings: Hard to discretely identify nodule secondary to central nature for wedge resection. Description of Procedure: The patient underwent left radial arterial line placement in the pre-operative suite. She was brought back to the operating room and placed on the table in the supine position. She was intubated with a 39F left sided CARMELA which was confirmed with bronchoscopy. A diagnostic bronchoscopy was also performed which revealed no lesions or abnormalities in the entire tracheo-bronchial tree. There was minimal to no secretions. The patient was then positioned in the left lateral decubitus position and her right chest was prepped and draped in the usual sterile fashion. The double lumen tube position was once again checked using bronchoscopy. A time-out was performed and antibiotics were given. The right lung was isolated. We made a 1cm incision in the 9th intercostal space anterior axillary line. The 8mm trocar was inserted into the chest bluntly. The robotic camera was inserted and there was no injury to the lung and there was good lung isolation. We placed then placed 12mm trocars 10cm anteriorly and 10cm posteriorly in the 9th intercostal space. A 4th 8mm port was placed posteriorly in the 8th ICS posteriorly. We placed a 15mm drilling assistant port in between ports 1 and 2 10th ICS above the diaphragm. 0.25% marcaine was used to perform intercostal nerve blocks at each level. The Coridoni Xi robot was then docked. We then approached the fissure and performed some dissection along the inter-lobar fissure using the bipolar cautery. The pulmonary arterial plane was dissected out. Attention was then turned towards the inferior pulmonary ligament which was taken down using the bipolar cautery. This dissection was carried upward with the bipolar cautery posteriorly and anteriorly along the mediastinal pleura. Posteriorly we obtained level 9R, 8R and 7 lymph nodes. At this point, R4 and R10 node was taken near the azygous vein. I then encircled the anterior minor fissure above the IPV and in front of the on-going PA with a vessel loop. A robotic blue load was fired across the anterior fissure. I then turned my attention to the inferior pulmonary vein which was circumferentially dissected free and encircled with a vessel loop. The robotic white load stapler was fired across the vein. At this point, the on-going pulmonary artery was dissected free, encircled and stapled using the robotic white load. The 11 node was harvested at this time also. Next, the bronchus to the lower lobe was circumferentially dissected, encircled with a vessel loop and stapled using the robotic green load. Next, the superior segemental artery was encircled and stapled using a robotic white load stapler. Lastly, the posterior fissure was completed using two firings of the robotic blue load. The lung was placed in a retrieval bag, and the right chest was irrigated with water and a leak test on the bronchus was performed which was negative. The robot was undocked, the specimen was removed from the chest cavity and a 28F chest tube was placed via the most anterior incision. All incisions were closed in layers.
[2024-01-24] MEDS: HYDROmorphone 0.5 MG/0.5 ML SYRINGE IVP PRN (10:16)
--- NOTE | 2024-01-24 10:45 | XR ---
EXAMINATION TYPE: XR chest 1V portable DATE OF EXAM: 01/24/2024 COMPARISON: 11/08/2023 HISTORY: Postlobectomy TECHNIQUE: Single frontal view of the chest is obtained. FINDINGS: Volume loss on the right with right-sided chest tube. Subcutaneous emphysema. No sizable p neumothorax. Left lung clear. Limited inspiration. Diffuse osteopenia, arthropathy of the shoulder, s coliosis and degenerative change of the spine. Linear basilar atelectasis on the left. IMPRESSION: Postoperative change with no sizable pneumothorax.
--- NOTE | 2024-01-24 10:50 | P.ANPRN ---
Procedure Note - Anesthesia - Nerve Block Performed Right Erector Spinae Single Time Out Performed: Yes ([id number]) Date of Procedure: 01/24/24 Procedure Start Time: 06:59 Procedure Stop Time: 07:02 Location of Patient: PreOp Indication: Acute Post-Operative Pain, Requested by Surgeon Specifically requested for management of pain by DrJuana: Nirav Amaral Sedation Type: Sedate with meaningful contact maintained Preparation: Sterile Prep Position: Sitting Catheter: None Needle Types: Pajunk Needle Gauge: 21 Ultrasound used to visualize needle placement: Yes Ultrasound used to observe medication spread: Yes Injectate: 0.5% Ropivacaine (see comment for volume) (30cc) Blood Aspirated: No Pain Paresthesia on Injection Noted: No Resistance on Injection: Normal Image Stored and Saved: Yes Events: Uneventful and Well Tolerated
[2024-01-24] MEDS ORDERED: bisacodyL 10 MG SUPP RECTAL PRN (12:15)
[2024-01-24] MEDS ORDERED: METOCLOPRAMIDE 5 MG/ML 2 ML VIAL IVP PRN (12:15)
[2024-01-24] MEDS ORDERED: IPRATROPIUM-ALBUTEROL 3 ML NEB IH PRN (12:15)
[2024-01-24] MEDS: KETOROLAC 15 MG/ML 1 ML VIAL IVP SCH (12:40)
--- NOTE | 2024-01-24 12:45 | XR ---
EXAMINATION TYPE: XR chest 1V DATE OF EXAM: 01/24/2024 COMPARISON: 01/24/2024 HISTORY: Postlobectomy TECHNIQUE: Single frontal view of the chest is obtained. FINDINGS: There is a prior exam. Chest is Volume loss on the right with right-sided chest tube. Subcutaneous emphysema. Left lung clear. Limite d inspiration. Diffuse osteopenia, arthropathy of the shoulder, scoliosis and degenerative change of the spine. Linear basilar atelectasis on the left. IMPRESSION: 1. Interval development of 5-10% right apical pneumothorax.
[2024-01-24 13:39] LABS: Basophils % (A) 0 %; Eosinophils # (A) 0.1 k/uL (0-0.7); Eosinophils % (A) 1 %; HCT 37.2 % (34.0-46.0); HGB 11.6 gm/dL (11.4-16.0); Lymphocytes # (A) 0.9 k/uL (1.0-4.8); Lymphocytes % (A) 8 %; MCHC 31.2 g/dL (31.0-37.0); Mean Platelet Volume 8.4; Monocytes # (A) 0.6 k/uL (0-1.0); Monocytes % (A) 5 %; Neutrophils # (A) 10.6 k/uL (1.3-7.7); Neutrophils % (A) 86 %; Platelet Count 188 k/uL (150-450); RBC 3.87 m/uL (3.80-5.40); RDW 12.9 % (11.5-15.5); WBC 12.3 k/uL (3.8-10.6)
[2024-01-24] MEDS: DEXAMETHASONE SOD PHOSPHATE 4 MG/ML 1 ML VIAL IV ONE (14:30)
[2024-01-24] MEDS: traMADol 50 MG TAB PO PRN (15:16)
[2024-01-24] MEDS: DEXTROSE 5%-0.45% NACL 1,000 ML IV SCH (15:17)
[2024-01-24] MEDS: IPRATROPIUM-ALBUTEROL 3 ML NEB IH SCH (17:28)
[2024-01-24] MEDS: HEPARIN SODIUM,PORCINE 5,000 UNIT/ML 1 ML VIAL SQ SCH (17:43)
[2024-01-24 19:28] LABS: African American GFR (CKD) >90 (>60 ml/min/1.73 sqM); Anion Gap 6 mmol/L; Blood Urea Nitrogen 27 mg/dL (7-17); Calcium 8.4 mg/dL (8.4-10.2); Carbon Dioxide 25 mmol/L (22-30); Chloride 107 mmol/L (98-107); Glucose 114 mg/dL (74-99); Non-African American GFR(CKD) >90 (>60 ml/min/1.73 sqM); Sodium 138 mmol/L (137-145)
[2024-01-24] MEDS: SYMBICORT 160-4.5 MCG INHALER INHALATION SCH (20:11)
[2024-01-24] MEDS: METOPROLOL TARTRATE 12.5 MG TAB PO SCH (20:39)
[2024-01-24] MEDS: ALPRAZolam 0.25 MG TAB PO SCH (20:39)
--- NOTE | 2024-01-24 20:55 | P.CNPUL ---
History of Present Illness Consult date: 01/24/24 Reason for consult: lung mass Chief complaint: Lung mass/cancer post right lower lobe resection. History of present illness: This is a 83-year-old female patient underwent a robotic assisted thoracoscopic lung surgery and the patient underwent a right lower lobectomy along with mediastinal lymph node dissection. Surgery was done with minimal blood loss in the order of 25 cc. Patient is currently on the medical floor and the patient is currently on 2 L of oxygen by nasal cannula with a pulse ox of 99 to 100%. The postop chest x-ray shows a tiny 5 to 10% right apical pneumothorax. There is subcutaneous emphysema. Left lung is clear. Volume loss is seen on the right lung. Chest tube is in a good location. 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 The patient had a PET avid right lower lobe lesion that which I biopsied that turned out to be positive for adenocarcinoma. Previous medical history includes chronic A-fib, ASD, hyperlipidemia and history of seborrheic dermatitis and history of mitral valve prolapse. The patient had a 3.3 x 3 cm right lower lobe mass. She is a non- smoker. Her baseline FEV1 was in order of 1.82 L post bronchodilation. 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 Review of Systems Constitutional: Denies chills, Denies fever Eyes: denies as per HPI, denies blurred vision, denies bulging eye, denies decreased vision, denies diplopia, denies discharge, denies dry eye, denies irritation, denies itching, denies pain, denies photophobia, denies loss of peripheral vision, denies loss of vision, denies tunnel vision/blind spots Ears: deny: decreased hearing, ear discharge, earache, tinnitus Ears, nose, mouth and throat: Reports as per HPI Breasts: absent: as per HPI, change in shape, gynecomastia, masses, nipple discharge, pain, skin changes, swelling Cardiovascular: Reports irregular heart beat, Denies chest pain, Denies shortness of breath Gastrointestinal: Reports as per HPI Genitourinary: Reports as per HPI Menstruation: Reports as per HPI Musculoskeletal: Reports as per HPI Musculoskeletal: absent: ankle pain, ankle stiffness, ankle swelling Integumentary: Reports as per HPI Neurological: Reports as per HPI Psychiatric: Reports as per HPI Endocrine: Reports as per HPI Hematologic/Lymphatic: Reports as per HPI Allergic/Immunologic: Reports as per HPI Past Medical History Past Medical History: Atrial Fibrillation, Cancer (Pulm adenocarcinoma of the right lower lobe), Deep Vein Thrombosis (DVT), Eye Disorder, GERD/Reflux, Hyperlipidemia, Hypertension, Osteoarthritis (OA) Additional Past Medical History / Comment(s): GERD resolved. Varicose veins. Heart murmur, palpitations, born with atrial septal defect. Back pain, numbness/tingling in legs and feet, neuropathy - feet. Occasional incontinence of urine, pessary in place. Occasional rash under breasts, no issue currently. History of Any Multi-Drug Resistant Organisms: None Reported Past Surgical History: Appendectomy, Cardiac Ablation, Cholecystectomy, Heart Catheterization, Hysterectomy, Joint Replacement, Orthopedic Surgery Additional Past Surgical History / Comment(s): Varicose veins stripped/surgery, heart catheterization X2, vaginal vault inversion using pessary, EP study/heart ablation 04/2009 and 06/2009, [facility], benign skin lesion removed from face, colonosocopy, bilateral knee replacments, 2nd toe right foot ingrown toe nail removed, eye stents for glaucoma, bilateral cataract surgery, left femur fracture - nichole placed December 2022. Past Anesthesia/Blood Transfusion Reactions: No Reported Reaction Additional Past Anesthesia/Blood Transfusion Reaction / Comment(s): Blood transfusion X3 with no reactions after femur surgery. Past Psychological History: Anxiety Smoking Status: Never smoker Past Alcohol Use History: None Reported Past Drug Use History: None Reported - Past Family History Mother Family Medical History: Cancer Additional Family Medical History / Comment(s): at age 62 from pancreatic cancer. Father Additional Family Medical History / Comment(s): Was healthy till MVA accident at age 81-closed head injruy but lived 1 day shy of age 90 Medications and Allergies Home Medications Medication Instructions Recorded Confirmed Type ALPRAZolam [Xanax] 0.25 mg PO BID 04/24/14 01/24/24 History Metoprolol Tartrate [Lopressor] 12.5 mg PO BID 11/05/23 01/24/24 History Rivaroxaban [Xarelto] 1 tab PO HS 11/05/23 01/24/24 History Sotalol [Betapace] 40 mg PO HS 11/05/23 01/24/24 History Sotalol [Betapace] 80 mg PO QA 11/05/23 01/24/24 History lisinopriL [Zestril] 20 mg PO QAM 11/05/23 01/24/24 History Albuterol Sulfate [Proair 1 puff INHALATION TID 01/21/24 01/24/24 History Digihaler] Budesonide-Formot 160-4.5 Mcg 2 puff INHALATION BID 01/21/24 01/24/24 History [Symbicort 160-4.5 Mcg Inhaler] Latanoprost [Latanoprost 0.005%] 1 drop LEFT EYE HS 01/21/24 01/24/24 History Allergies Allergy/AdvReac Type Severity Reaction Status Date / Time Sulfa (Sulfonamide Allergy Rash/Hives Verified 01/24/24 06:16 Antibiotics) [place] [employer] Derivatives AdvReac Unknown Verified 01/24/24 06:16 [[place]] monosodium glutamate [MSG] AdvReac Headache Verified 01/24/24 06:16 Physical Exam Vitals: Vital Signs Temp Pulse Pulse Resp BP BP Pulse Ox 01/24/24 11:02 49 L 16 139/67 92 L 01/24/24 10:47 50 L 16 147/67 100 01/24/24 10:32 50 L 16 147/67 99 01/24/24 10:17 50 L 16 151/68 100 01/24/24 10:02 97 F L 58 L 16 166/53 99 01/24/24 07:19 48 L 16 168/70 100 01/24/24 06:13 97.4 F L 48 L 16 192/74 99 Intake and Output 01/23/24 01/24/24 01/24/24 22:59 06:59 14:59 Intake Total 200 850 Output Total 155 Balance 200 695 Intake: IV 200 850 Output: Urine 130 Estimated Blood Loss 25 Other: Weight 94.1 kg General appearance the patient is calm comfortable on 2 L of oxygen by nasal cannula Head exam was generally normal. There was no scleral icterus or corneal arcus. Mucous membranes were moist. Neck was supple and without jugular venous distension, thyromegaly, or carotid bruits. Carotids were easily palpable bilaterally. There was no adenopathy. Lung sounds are diminished in the right lung base. The patient is right-sided chest in place. No significant air leak. The patient has a clean surgical wound site involving the right lung. Heart sounds are irregular consistent with atrial fibrillation. Positive S1-S2. No significant murmurs appreciated. Abdominal exam revealed normal bowel sounds. The abdomen was soft, non-tender, and without masses, organomegaly, or appreciable enlargement of the abdominal aorta. Examination of the extremities revealed easily palpable radial, femoral and pedal pulses. There was no cyanosis, clubbing or edema. Examination of the skin revealed no evidence of significant rashes, suspicious appearing nevi or other concerning lesions. Neurologically, the patient is awake and alert and the patient does not have any focal neurological deficit. Cranial nerves are essentially intact. Results - Laboratory Findings CBC and BMP: 01/24/24 12:55 01/24/24 12:15 Abnormal lab findings: Abnormal Labs 01/16/24 13:33 Crossmatch See Detail - Diagnostic Findings Chest x-ray: image reviewed Assessment and Plan Plan: Pulm adenocarcinoma and the patient presented with a 3.3 x 3 cm right lower lobe mass had a preoperative lung biopsy showed lipidic adenocarcinoma the patient underwent a robotic assisted right lower lobe resection. The patient is currently postop day #0 Postthoracotomy, right-sided chest tube in place and the patient has a 5 to 10% right apical pneumothorax. Mild intermittent air leak Acute hypoxic respiratory failure, expected outcome of surgery and the patient is currently on 2 L of oxygen by nasal cannula Chronic atrial fibrillation maintained on Xarelto on outpatient basis Hypertension Hyperlipidemia History of bronchial asthma, the patient is a lifelong non-smoker Chronic back pain History of ASD Osteoarthritis Plan Provide the patient is sinus parameter titrate oxygen flow to maintain saturation above 90%, currently on 2 L of oxygen by nasal cannula Keep right-sided chest tube in place to monitor for any air leak Continue Symbicort Continue [facility] Daily chest x-rays Toradol for pain control Continue metoprolol 12.5 mg p.o. twice a day Will continue to follow make further recommendations based on her progress.
[2024-01-24] MEDS: LATANOPROST 0.005% OPHTH DROPS 2.5 ML BTL LEFT EYE SCH (21:49)
[2024-01-25] MEDS: ACETAMINOPHEN TAB 325 MG TAB PO PRN (03:18)
[2024-01-25] MEDS: PANTOPRAZOLE 40 MG TABLET PO SCH (06:27)
[2024-01-25 06:59] LABS: Basophils # (A) 0.1 k/uL (0-0.2); Basophils % (A) 1 %; Eosinophils # (A) 0.1 k/uL (0-0.7); Eosinophils % (A) 1 %; HCT 38.6 % (34.0-46.0); HGB 12.3 gm/dL (11.4-16.0); Lymphocytes % (A) 11 %; MCH 30.3 pg (25.0-35.0); MCHC 31.9 g/dL (31.0-37.0); MCV 94.9 fL (80.0-100.0); Mean Platelet Volume 7.6; Monocytes # (A) 0.5 k/uL (0-1.0); Monocytes % (A) 6 %; Neutrophils # (A) 6.7 k/uL (1.3-7.7); Neutrophils % (A) 80 %; Platelet Count 222 k/uL (150-450); RBC 4.07 m/uL (3.80-5.40); RDW 12.7 % (11.5-15.5); WBC 8.4 k/uL (3.8-10.6)
[2024-01-25 07:13] LABS: African American GFR (CKD) >90 (>60 ml/min/1.73 sqM); Anion Gap 5 mmol/L; Blood Urea Nitrogen 25 mg/dL (7-17); Calcium 8.7 mg/dL (8.4-10.2); Carbon Dioxide 24 mmol/L (22-30); Chloride 104 mmol/L (98-107); Glucose 113 mg/dL (74-99); Non-African American GFR(CKD) 87 (>60 ml/min/1.73 sqM); Potassium 4.3 mmol/L (3.5-5.1); Sodium 133 mmol/L (137-145)
--- NOTE | 2024-01-25 07:57 | XR ---
EXAMINATION TYPE: XR chest 1V DATE OF EXAM: 01/25/2024 COMPARISON: 01/24/2024 HISTORY: Postlobectomy TECHNIQUE: Single frontal view of the chest is obtained. FINDINGS: There is a small 5% right apical pneumothorax slightly improved from prior exam. Chest tub e noted in position. There is now elevation of the right hemidiaphragm with consolidation small effus ion. Nodular density in the right upper lobe may be related to rotation as it was not seen on prior e xam but should be followed with subsequent imaging to exclude underlying nodularity. Diffuse osteopen ia, degenerative change of the spine with curvature. Arthropathy of the shoulders. IMPRESSION: 1. Slight interval reduction in the right apical pneumothorax now measuring approximately 5%. 2. Intervertebral development of right lower lobe infiltrate and small effusion. 3. Recommend correlation for a nodular density in the right upper lobe measuring 1.7 cm.
--- NOTE | 2024-01-25 08:45 | P.PN ---
Subjective Progress Note Date: 01/25/24 Principal diagnosis: Lepidic adenocarcinoma right lower lobe. Previous medical history of hypertension, hyperlipidemia, atrial fibrillation status post ablation on Xarelto for anticoagulation, DVT, atrial septal defect, lifelong non-smoker POD #1 bronchoscopy, right robotic assisted thorascopic surgery with right lower lobectomy, mediastinal lymph node dissection, intercostal nerve block - 3 levels The patient was seen and examined sitting up in recliner on the cardiac stepdown unit in no acute distress. States pain is mostly controlled with current medication regimen, Denies shortness of breath. Remains on room air, able to achieve 1000 mL on her incentive spirometry. Right pleural chest tube remains present to waterseal, tiny air leak with forceful coughing, 700 mL since surgery yesterday. No other new concerns. Objective - Vital Signs Vital signs: Vital Signs Temp 98.0 F 01/25/24 07:26 Pulse 62 01/25/24 07:26 Resp 20 01/25/24 07:26 BP 114/66 01/25/24 07:26 Pulse Ox 97 01/25/24 07:26 FiO2 Intake & Output 01/24/24 01/25/24 01/25/24 18:59 06:59 18:59 Intake Total 1268 Output Total 155 1055 Balance 1113 -1055 Weight 94.1 kg 95.3 kg Intake: IV 1150 Oral 118 Output: Chest Tube Drainage 0 655 Chest Tube Right Pleural/ 0 Mediastinal Right Posterior Chest 0 655 Urine 130 400 Estimated Blood Loss 25 Other: Voiding Method Bedside Commode Bedside Commode # Voids 1 - Exam CONSTITUTIONAL: Appears comfortable, cooperative, no acute distress RESPIRATORY: Lungs sounds diminished bilaterally. Respirations even, nonlabored. Currently on room air with oxygen saturation 94 %. Able to achieve 1000 mL on incentive spirometry. Strong cough. CARDIOVASCULAR: S1, S2 present. Regular rate and rhythm, sinus rhythm on telemetry. Palpable peripheral pulses bilaterally. No edema present. No calf pain or tenderness noted. SCDs present. GASTROINTESTINAL: Abdomen soft, nontender, nondistended. Active bowel sounds present 4 quadrants. Tolerating diet. Positive bowel movement. GENITOURINARY: Continues to void clear, yellow urine INTEGUMENTARY: Skin is warm and dry with evidence of good perfusion NEUROLOGIC: Cranial nerves II through XII intact MUSKULOSKELETAL: Able to move all extremities, strength equal bilaterally, gait normal PSYCHIATRIC: Alert and oriented to person place and time, appropriate affect, intact judgment and insight INVASIVE LINES AND TUBES: Right pleural chest tubes present to waterseal, tiny air leak present with forceful coughing, 390 mL serosanguineous drainage overnight, 700 mL since surgery - Allied health notes Allied health notes reviewed: nursing - Labs CBC & Chem 7: 01/25/24 06:44 01/25/24 06:39 Labs: Abnormal Lab Results - Last 24 Hours (Table) 01/16/24 01/24/24 01/24/24 Range/Units 13:33 12:15 12:55 WBC 12.3 H (3.8-10.6) k/uL Neutrophils # 10.6 H (1.3-7.7) k/uL Lymphocytes # 0.9 L (1.0-4.8) k/uL Sodium (137-145) mmol/L BUN 27 H (7-17) mg/dL Creatinine 0.46 L (0.52-1.04) mg/dL Glucose 114 H (74-99) mg/dL Crossmatch See Detail 01/25/24 Range/Units 06:39 WBC (3.8-10.6) k/uL Neutrophils # (1.3-7.7) k/uL Lymphocytes # (1.0-4.8) k/uL Sodium 133 L (137-145) mmol/L BUN 25 H (7-17) mg/dL Creatinine (0.52-1.04) mg/dL Glucose 113 H (74-99) mg/dL Crossmatch - Imaging and Cardiology Chest x-ray: report reviewed, image reviewed Assessment and Plan Assessment: Lepidic adenocarcinoma right lower lobe, status post bronchoscopy, right robotic assisted thorascopic surgery with right lower lobectomy, mediastinal lymph node dissection, intercostal nerve block - 3 levels History of hypertension Hyperlipidemia Paroxysmal atrial fibrillation status post ablation on Xarelto for anticoagulation, currently sinus DVT Atrial septal defect Lifelong non-smoker Plan: Continue to maximize medical therapy, will continue to hold Xarelto until after chest tube is removed Encourage incentive spirometry use 10 times every hour while awake Will continue right pleural chest tube to waterseal for another 24 hours, monitor output Will monitor daily labs and x-rays Increase activity as tolerated Pain control with current medication regimen More recommendations to follow
[2024-01-25] MEDS: lisinopriL 20 MG TAB PO SCH (08:52)
--- NOTE | 2024-01-25 15:10 | P.PN ---
Subjective Progress Note Date: 01/25/24 This is a 83-year-old female patient underwent a robotic assisted thoracoscopic lung surgery and the patient underwent a right lower lobectomy along with mediastinal lymph node dissection. Surgery was done with minimal blood loss in the order of 25 cc. Patient is currently on the medical floor and the patient is currently on 2 L of oxygen by nasal cannula with a pulse ox of 99 to 100%. The postop chest x-ray shows a tiny 5 to 10% right apical pneumothorax. There is subcutaneous emphysema. Left lung is clear. Volume loss is seen on the right lung. Chest tube is in a good location. 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 The patient had a PET avid right lower lobe lesion that which I biopsied that turned out to be positive for adenocarcinoma. Previous medical history includes chronic A-fib, ASD, hyperlipidemia and history of seborrheic dermatitis and history of mitral valve prolapse. The patient had a 3.3 x 3 cm right lower lobe mass. She is a non- smoker. Her baseline FEV1 was in order of 1.82 L post bronchodilation. 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 On today's evaluation of 01/25/2024, I am seeing the patient for a follow-up. Patient is doing well. No specific complaints. The patient is post right lower lobe resection the patient is currently postop day #1. The patient also had mediastinal node dissection and intercostal nerve block, 3 levels. Sitting up in a chair. Ambulating. Right-sided chest tube in place with minimal amount of air leak and the volume has been in the order of 700 cc since surgery. Repeat chest x-ray from today shows diminution of the right apical pneumothorax which is in order of 5%. There is another opacity measuring 1.7 cm another density in the right upper lobe area. This may be an atelectatic segment. Sodium levels at 133, BUN 25 with a creatinine of 0.5 and WBC count of 8.4 with a hemoglobin 12.3. The patient using incentive spirometer. The patient has a pulse ox of 94% on room air oxygen. Objective - Vital Signs Vital signs: Vital Signs Temp 97.4 F L 01/25/24 11:15 Pulse 55 L 01/25/24 11:15 Resp 18 01/25/24 11:15 BP 125/82 01/25/24 11:15 Pulse Ox 95 01/25/24 11:15 FiO2 Intake & Output 01/24/24 01/25/24 01/25/24 18:59 06:59 18:59 Intake Total 1268 Output Total 155 1055 Balance 1113 -1055 Weight 94.1 kg 95.3 kg Intake: IV 1150 Oral 118 Output: Chest Tube Drainage 0 655 Chest Tube Right Pleural/ 0 Mediastinal Right Posterior Chest 0 655 Urine 130 400 Estimated Blood Loss 25 Other: Voiding Method Bedside Commode Bedside Commode # Voids 1 - Exam General appearance the patient is calm comfortable on room air oxygen Head exam was generally normal. There was no scleral icterus or corneal arcus. Mucous membranes were moist. Neck was supple and without jugular venous distension, thyromegaly, or carotid bruits. Carotids were easily palpable bilaterally. There was no adenopathy. Lung sounds are diminished in the right lung base. The patient is right-sided chest in place. No significant air leak. The patient has a clean surgical wound site involving the right lung. Heart sounds are irregular consistent with atrial fibrillation. Positive S1-S2. No significant murmurs appreciated. Abdominal exam revealed normal bowel sounds. The abdomen was soft, non-tender, and without masses, organomegaly, or appreciable enlargement of the abdominal aorta. Examination of the extremities revealed easily palpable radial, femoral and pedal pulses. There was no cyanosis, clubbing or edema. Examination of the skin revealed no evidence of significant rashes, suspicious appearing nevi or other concerning lesions. Neurologically, the patient is awake and alert and the patient does not have any focal neurological deficit. Cranial nerves are essentially intact. - Labs CBC & Chem 7: 01/25/24 06:44 01/25/24 06:39 Labs: Abnormal Lab Results - Last 24 Hours (Table) 01/24/24 01/24/24 01/25/24 Range/Units 12:15 12:55 06:39 WBC 12.3 H (3.8-10.6) k/uL Neutrophils # 10.6 H (1.3-7.7) k/uL Lymphocytes # 0.9 L (1.0-4.8) k/uL Sodium 133 L (137-145) mmol/L BUN 27 H 25 H (7-17) mg/dL Creatinine 0.46 L (0.52-1.04) mg/dL Glucose 114 H 113 H (74-99) mg/dL Assessment and Plan Plan: Pulm adenocarcinoma and the patient presented with a 3.3 x 3 cm right lower lobe mass had a preoperative lung biopsy showed lipidic adenocarcinoma the patient underwent a robotic assisted right lower lobe resection. The patient is currently postop day # 1 Postthoracotomy, right-sided chest tube in place and there is diminution of the right-sided pneumothorax which is in the order of less than 5%, mild intermittent air leak, some atelectatic changes in the right lung noted. Acute hypoxic respiratory failure, expected outcome of surgery and the patient is currently on room air oxygen Chronic atrial fibrillation maintained on Xarelto on outpatient basis Hypertension Hyperlipidemia History of bronchial asthma, the patient is a lifelong non-smoker Chronic back pain History of ASD Osteoarthritis Plan continue using incentive spirometer Oxygenation is stable and the patient is currently on room air oxygen Keep right-sided chest tube in place to monitor for any air leak Continue Symbicort Continue [facility] Daily chest x-rays Toradol for pain control Continue metoprolol 12.5 mg p.o. twice a day Will continue to follow make further recommendations based on her progress.
[2024-01-25] MEDS: hydrALAZINE HCL 20 MG/ML 1 ML VIAL IVP PRN (23:45)
[2024-01-25] MEDS: HYDROmorphone 0.5 MG/0.5 ML SYRINGE IVP PRN (23:46)
[2024-01-26 07:53] LABS: HCT 36.8 % (34.0-46.0); MCH 30.9 pg (25.0-35.0); MCHC 32.5 g/dL (31.0-37.0); Mean Platelet Volume 7.8; Platelet Count 228 k/uL (150-450); RBC 3.88 m/uL (3.80-5.40); RDW 12.9 % (11.5-15.5); WBC 9.3 k/uL (3.8-10.6)
[2024-01-26 08:03] LABS: African American GFR (CKD) >90 (>60 ml/min/1.73 sqM); Anion Gap 7 mmol/L; Blood Urea Nitrogen 21 mg/dL (7-17); Carbon Dioxide 24 mmol/L (22-30); Chloride 102 mmol/L (98-107); Glucose 106 mg/dL (74-99); Non-African American GFR(CKD) 86 (>60 ml/min/1.73 sqM); Sodium 133 mmol/L (137-145)
--- NOTE | 2024-01-26 08:08 | P.PN ---
Subjective Progress Note Date: 01/26/24 Principal diagnosis: Lepidic adenocarcinoma right lower lobe. Previous medical history of hypertension, hyperlipidemia, paroxysmal atrial fibrillation status post ablation on Xarelto for anticoagulation, DVT, atrial septal defect, asthma, lifelong non-smoker POD #2 bronchoscopy, right robotic assisted thorascopic surgery with right lower lobectomy, mediastinal lymph node dissection, intercostal nerve block - 3 levels The patient was seen and examined sitting up in recliner on the cardiac stepdown unit in no acute distress. States pain is mostly controlled with current medication regimen now that breakthrough IV push Dilaudid has been ordered, denies shortness of breath. Remains on room air, able to achieve 1250 mL on her incentive spirometry. Right pleural chest tube remains present to waterseal, tiny air leak with forceful coughing, 600 mL output in the last 24 hours. Patient has been ambulatory with walker but not in the hallway yet. No other new concerns. Objective - Vital Signs Vital signs: Vital Signs Temp 97.8 F 01/26/24 07:57 Pulse 64 01/26/24 07:57 Resp 16 01/26/24 07:57 BP 137/76 01/26/24 07:57 Pulse Ox 95 01/26/24 07:57 FiO2 Intake & Output 01/25/24 01/26/24 01/26/24 18:59 06:59 18:59 Output Total 550 1100 100 Balance -550 -1100 -100 Weight 95.2 kg Output: Chest Tube Drainage 150 250 100 Right Posterior Chest 150 250 100 Urine 400 850 Other: Voiding Method Bedside Commode Toilet Toilet # Voids 1 1 - Exam CONSTITUTIONAL: Appears comfortable, cooperative, no acute distress RESPIRATORY: Lungs sounds diminished bilaterally. Respirations even, nonlabored. Currently on room air with oxygen saturation 94 %. Able to achieve 1250 mL on incentive spirometry. Strong cough. CARDIOVASCULAR: S1, S2 present. Regular rate and rhythm, sinus rhythm on telem etry. Palpable peripheral pulses bilaterally. No edema present. No calf pain or tenderness noted. SCDs present. GASTROINTESTINAL: Abdomen soft, nontender, nondistended. Active bowel sounds present 4 quadrants. Tolerating diet. Positive bowel movement. GENITOURINARY: Continues to void clear, yellow urine INTEGUMENTARY: Skin is warm and dry with evidence of good perfusion NEUROLOGIC: Cranial nerves II through XII intact MUSKULOSKELETAL: Able to move all extremities, strength equal bilaterally, gait normal PSYCHIATRIC: Alert and oriented to person place and time, appropriate affect, intact judgment and insight INVASIVE LINES AND TUBES: Right pleural chest tubes present to waterseal, tiny air leak present with forceful coughing, 250 mL serosanguineous drainage overnight, 600 mL in the last 24 hours - Allied health notes Allied health notes reviewed: nursing - Labs CBC & Chem 7: 01/26/24 07:20 01/26/24 07:20 Labs: Abnormal Lab Results - Last 24 Hours (Table) 01/16/24 01/26/24 Range/Units 13:33 07:20 Sodium 133 L (137-145) mmol/L BUN 21 H (7-17) mg/dL Glucose 106 H (74-99) mg/dL Crossmatch See Detail - Imaging and Cardiology Chest x-ray: image reviewed Assessment and Plan Assessment: Lepidic adenocarcinoma right lower lobe, status post bronchoscopy, right robotic assisted thorascopic surgery with right lower lobectomy, mediastinal lymph node dissection, intercostal nerve block - 3 levels History of hypertension Hyperlipidemia Paroxysmal atrial fibrillation status post ablation on Xarelto for anticoagulation, currently sinus DVT Atrial septal defect Asthma Lifelong non-smoker Plan: Continue to maximize medical therapy, will continue to hold Xarelto until after chest tube is removed Encourage incentive spirometry use 10 times every hour while awake Will continue right pleural chest tube to waterseal for another 24 hours, monitor output Will monitor daily labs and x-rays Increase activity as tolerated Pain control with current medication regimen More recommendations to follow
--- NOTE | 2024-01-26 13:49 | XR ---
EXAMINATION TYPE: XR chest 2V DATE OF EXAM: 01/26/2024 6:30 AM CLINICAL INDICATION:Female, 83 years old with history of post; [facility] COMPARISON: 01/25/2024 and before TECHNIQUE: XR chest 2V. Frontal and lateral views of the chest.. FINDINGS: Right chest tube in stable position with its tip at the medial right apex. Monitor leads over the ge[facility]. Trace residual right apical pneumothorax. Similar elevation of the right hemidiaphragm with consolida tion and small effusion. Previously seen nodular density over the right upper lung is not clearly rep roduced. Left lung shows mild chronic changes with no acute infiltrate. The left costophrenic angle a ppears relatively sharply defined. Cardiomediastinal silhouette is stable. Heart appears mildly enlarged. Mildly tortuous aorta. Diffuse osteopenia, degenerative change of the spine with curvature. Arthropathy of the shoulders. Small curvilinear lucency projected near the right lung base could represent pneumoperitoneum IMPRESSION: 1. Trace residual right apical pneumothorax. 2. Right chest tube in place. 3. Right lower lobe consolidation and small effusion. 4. Small curvilinear lucency projected near the right lung base could represent pneumoperitoneum. Co rrelate clinically whether the patient has had recent abdominal surgery to explain this. If not, charli mmend CT abdomen for further evaluation.
--- NOTE | 2024-01-26 15:37 | P.PN ---
Subjective Progress Note Date: 01/26/24 This is a 83-year-old female patient underwent a robotic assisted thoracoscopic lung surgery and the patient underwent a right lower lobectomy along with mediastinal lymph node dissection. Surgery was done with minimal blood loss in the order of 25 cc. Patient is currently on the medical floor and the patient is currently on 2 L of oxygen by nasal cannula with a pulse ox of 99 to 100%. The postop chest x-ray shows a tiny 5 to 10% right apical pneumothorax. There is subcutaneous emphysema. Left lung is clear. Volume loss is seen on the right lung. Chest tube is in a good location. 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 The patient had a PET avid right lower lobe lesion that which I biopsied that turned out to be positive for adenocarcinoma. Previous medical history includes chronic A-fib, ASD, hyperlipidemia and history of seborrheic dermatitis and history of mitral valve prolapse. The patient had a 3.3 x 3 cm right lower lobe mass. She is a non- smoker. Her baseline FEV1 was in order of 1.82 L post bronchodilation. 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 On today's evaluation of 01/25/2024, I am seeing the patient for a follow-up. Patient is doing well. No specific complaints. The patient is post right lower lobe resection the patient is currently postop day #1. The patient also had mediastinal node dissection and intercostal nerve block, 3 levels. Sitting up in a chair. Ambulating. Right-sided chest tube in place with minimal amount of air leak and the volume has been in the order of 700 cc since surgery. Repeat chest x-ray from today shows diminution of the right apical pneumothorax which is in order of 5%. There is another opacity measuring 1.7 cm another density in the right upper lobe area. This may be an atelectatic segment. Sodium levels at 133, BUN 25 with a creatinine of 0.5 and WBC count of 8.4 with a hemoglobin 12.3. The patient using incentive spirometer. The patient has a pulse ox of 94% on room air oxygen. On today's evaluation of 01/26/2024, the patient is being seen for a follow-up. The patient is postop day #2 following a right lower lobe resection. Right- sided chest tube in place and the patient continues to have some intermittent air leak. Repeat chest x-ray was done today and the patient has a right-sided chest tube, right sided small effusion, small curvilinear lucency projected in the right lung base could be related to some pneumoperitoneum. Nevertheless, the patient does not have any significant abdominal pain or tenderness. No nausea. No emesis. A trace right apical pneumothorax is also seen. The patient otherwise has no specific complaints. White cell count at 9.3 with a hemoglobin 12 and a platelet count of 228. BUN is 21 with a creatinine of 0.8 and sodium levels at 133. Remains on DuoNeb nebulized treatments [id number]. Using incentive spirometer on a regular basis. Tramadol for pain control in addition to Toradol. Objective - Vital Signs Vital signs: Vital Signs Temp 97.8 F 01/26/24 07:57 Pulse 68 01/26/24 08:43 Resp 18 01/26/24 08:43 BP 137/76 01/26/24 07:57 Pulse Ox 96 01/26/24 08:32 FiO2 Intake & Output 01/25/24 01/26/24 01/26/24 18:59 06:59 18:59 Intake Total 540 Output Total 550 1100 100 Balance -550 -1100 440 Weight 95.2 kg Intake: Oral 540 Output: Chest Tube Drainage 150 250 100 Right Posterior Chest 150 250 100 Urine 400 850 Other: Voiding Method Bedside Commode Toilet Toilet # Voids 1 1 - Exam General appearance the patient is calm comfortable on room air oxygen Head exam was generally normal. There was no scleral icterus or corneal arcus. Mucous membranes were moist. Neck was supple and without jugular venous distension, thyromegaly, or carotid bruits. Carotids were easily palpable bilaterally. There was no adenopathy. Lung sounds are diminished in the right lung base. The patient is right-sided chest in place. No significant air leak. The patient has a clean surgical wound site involving the right lung. Heart sounds are irregular consistent with atrial fibrillation. Positive S1-S2. No significant murmurs appreciated. Abdominal exam revealed normal bowel sounds. The abdomen was soft, non-tender, and without masses, organomegaly, or appreciable enlargement of the abdominal aorta. Examination of the extremities revealed easily palpable radial, femoral and pedal pulses. There was no cyanosis, clubbing or edema. Examination of the skin revealed no evidence of significant rashes, suspicious appearing nevi or other concerning lesions. Neurologically, the patient is awake and alert and the patient does not have any focal neurological deficit. Cranial nerves are essentially intact. - Labs CBC & Chem 7: 01/26/24 07:20 01/26/24 07:20 Labs: Abnormal Lab Results - Last 24 Hours (Table) 01/16/24 01/26/24 Range/Units 13:33 07:20 Sodium 133 L (137-145) mmol/L BUN 21 H (7-17) mg/dL Glucose 106 H (74-99) mg/dL Crossmatch See Detail Assessment and Plan Plan: Pulm adenocarcinoma and the patient presented with a 3.3 x 3 cm right lower lobe mass had a preoperative lung biopsy showed lipidic adenocarcinoma the patient underwent a robotic assisted right lower lobe resection. The patient is currently postop day # 2 Postthoracotomy, right-sided chest tube in place and there is diminution of the right-sided pneumothorax, intermittent air leak is present Acute hypoxic respiratory failure, expected outcome of surgery and the patient is currently on room air oxygen Chronic atrial fibrillation maintained on Xarelto on outpatient basis Hypertension Hyperlipidemia History of bronchial asthma, the patient is a lifelong non-smoker Chronic back pain History of ASD Osteoarthritis Plan Keep the chest tube in place for another 24 hours and monitor the intermittent air leak Continue using the incentive spirometer Patient is currently on room air oxygen Continue Symbicort Continue [facility] Daily chest x-rays Toradol for pain control in combination with tramadol Continue metoprolol 12.5 mg p.o. twice a day Will continue to follow make further recommendations based on her progress.
--- NOTE | 2024-01-27 07:54 | P.PN ---
Subjective Progress Note Date: 01/27/24 Principal diagnosis: Lepidic adenocarcinoma right lower lobe. Previous medical history of hypertension, hyperlipidemia, paroxysmal atrial fibrillation status post ablation on Xarelto for anticoagulation, DVT, atrial septal defect, asthma, lifelong non-smoker POD #3 bronchoscopy, right robotic assisted thorascopic surgery with right lower lobectomy, mediastinal lymph node dissection, intercostal nerve block - 3 levels The patient was seen and examined sitting up in recliner on the cardiac stepdown unit in no acute distress. States pain is mostly controlled with current medication regimen although she did have a bout of significant pain this morning, denies shortness of breath. Remains on room air, able to achieve 1250 mL on her incentive spirometry. Right pleural chest tube remains present to waterseal, tiny air leak with forceful coughing, 450 mL output in the last 24 hours. Patient has been ambulatory with walker in the hallway. Blood pressure does appear to be creeping up, mostly felt to be a pain response. No other new concerns. Objective - Vital Signs Vital signs: Vital Signs Temp 98.2 F 01/27/24 04:00 Pulse 72 01/27/24 04:00 Resp 16 01/27/24 04:00 BP 153/75 01/27/24 04:00 Pulse Ox 95 01/27/24 04:00 FiO2 Intake & Output 01/26/24 01/27/24 01/27/24 18:59 06:59 18:59 Intake Total 780 Output Total 690 500 Balance 90 -500 Weight 94.8 kg Intake: Oral 780 Output: Chest Tube Drainage 240 300 Right Posterior Chest 240 300 Urine 450 200 Other: Voiding Method Toilet Toilet - Exam CONSTITUTIONAL: Appears comfortable, cooperative, no acute distress RESPIRATORY: Lungs sounds diminished bilaterally. Respirations even, nonlabored. Currently on room air with oxygen saturation 95 %. Able to achieve 1250 mL on incentive spirometry. Strong cough. CARDIOVASCULAR: S1, S2 present. Regular rate and rhythm, sinus rhythm on telemetry. Palpable peripheral pulses bilaterally. No edema present. No calf pain or tenderness noted. SCDs present. GASTROINTESTINAL: Abdomen soft, nontender, nondistended. Active bowel sounds present 4 quadrants. Tolerating diet GENITOURINARY: Continues to void clear, yellow urine INTEGUMENTARY: Skin is warm and dry with evidence of good perfusion NEUROLOGIC: Cranial nerves II through XII intact MUSKULOSKELETAL: Able to move all extremities, strength equal bilaterally, gait normal PSYCHIATRIC: Alert and oriented to person place and time, appropriate affect, intact judgment and insight INVASIVE LINES AND TUBES: Right pleural chest tubes present to waterseal, tiny air leak present with forceful coughing, 230 mL serosanguineous drainage overnight, 450 mL in the last 24 hours - Allied health notes Allied health notes reviewed: nursing - Labs CBC & Chem 7: 01/26/24 07:20 01/26/24 07:20 Labs: Abnormal Lab Results - Last 24 Hours (Table) 01/26/24 Range/Units 07:20 Sodium 133 L (137-145) mmol/L BUN 21 H (7-17) mg/dL Glucose 106 H (74-99) mg/dL - Imaging and Cardiology Chest x-ray: image reviewed Assessment and Plan Assessment: Lepidic adenocarcinoma right lower lobe, status post bronchoscopy, right robotic assisted thorascopic surgery with right lower lobectomy, mediastinal lymph node dissection, intercostal nerve block - 3 levels History of hypertension Hyperlipidemia Paroxysmal atrial fibrillation status post ablation on Xarelto for anticoagulation, currently sinus DVT Atrial septal defect Asthma Lifelong non-smoker Plan: Continue to maximize medical therapy, will continue to hold Xarelto until after chest tube is removed Lisinopril and Lopressor increased for better blood pressure control Encourage incentive spirometry use 10 times every hour while awake Will continue right pleural chest tube to waterseal for another 24 hours, monitor output Will monitor daily labs and x-rays Increase activity as tolerated Pain control with current medication regimen, will make tramadol scheduled alternating with Toradol to try to achieve better pain control More recommendations to follow
[2024-01-27] MEDS: lisinopriL 20 MG TAB PO SCH (08:13)
[2024-01-27] MEDS: traMADol 50 MG TAB PO SCH (08:13)
[2024-01-27] MEDS: SENNOSIDES-DOCUSATE SODIUM 1 EACH TAB PO SCH (08:13)
[2024-01-27] MEDS: METOPROLOL TARTRATE 12.5 MG TAB PO SCH (08:13)
[2024-01-27 10:25] LABS: HCT 34.4 % (34.0-46.0); MCH 30.5 pg (25.0-35.0); MCHC 31.9 g/dL (31.0-37.0); MCV 95.4 fL (80.0-100.0); Mean Platelet Volume 7.7; Platelet Count 195 k/uL (150-450); RBC 3.61 m/uL (3.80-5.40); RDW 12.7 % (11.5-15.5); WBC 7.6 k/uL (3.8-10.6)
[2024-01-27 10:40] LABS: African American GFR (CKD) >90 (>60 ml/min/1.73 sqM); Anion Gap -1 mmol/L; Blood Urea Nitrogen 21 mg/dL (7-17); Calcium 8.9 mg/dL (8.4-10.2); Carbon Dioxide 33 mmol/L (22-30); Chloride 101 mmol/L (98-107); Glucose 105 mg/dL (74-99); Non-African American GFR(CKD) 84 (>60 ml/min/1.73 sqM); Potassium 4.3 mmol/L (3.5-5.1); Sodium 133 mmol/L (137-145)
--- NOTE | 2024-01-27 14:47 | P.PN ---
Subjective Progress Note Date: 01/27/24 This is a 83-year-old female patient underwent a robotic assisted thoracoscopic lung surgery and the patient underwent a right lower lobectomy along with mediastinal lymph node dissection. Surgery was done with minimal blood loss in the order of 25 cc. Patient is currently on the medical floor and the patient is currently on 2 L of oxygen by nasal cannula with a pulse ox of 99 to 100%. The postop chest x-ray shows a tiny 5 to 10% right apical pneumothorax. There is subcutaneous emphysema. Left lung is clear. Volume loss is seen on the right lung. Chest tube is in a good location. 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 The patient had a PET avid right lower lobe lesion that which I biopsied that turned out to be positive for adenocarcinoma. Previous medical history includes chronic A-fib, ASD, hyperlipidemia and history of seborrheic dermatitis and history of mitral valve prolapse. The patient had a 3.3 x 3 cm right lower lobe mass. She is a non- smoker. Her baseline FEV1 was in order of 1.82 L post bronchodilation. 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 On today's evaluation of 01/25/2024, I am seeing the patient for a follow-up. Patient is doing well. No specific complaints. The patient is post right lower lobe resection the patient is currently postop day #1. The patient also had mediastinal node dissection and intercostal nerve block, 3 levels. Sitting up in a chair. Ambulating. Right-sided chest tube in place with minimal amount of air leak and the volume has been in the order of 700 cc since surgery. Repeat chest x-ray from today shows diminution of the right apical pneumothorax which is in order of 5%. There is another opacity measuring 1.7 cm another density in the right upper lobe area. This may be an atelectatic segment. Sodium levels at 133, BUN 25 with a creatinine of 0.5 and WBC count of 8.4 with a hemoglobin 12.3. The patient using incentive spirometer. The patient has a pulse ox of 94% on room air oxygen. On today's evaluation of 01/26/2024, the patient is being seen for a follow-up. The patient is postop day #2 following a right lower lobe resection. Right- sided chest tube in place and the patient continues to have some intermittent air leak. Repeat chest x-ray was done today and the patient has a right-sided chest tube, right sided small effusion, small curvilinear lucency projected in the right lung base could be related to some pneumoperitoneum. Nevertheless, the patient does not have any significant abdominal pain or tenderness. No nausea. No emesis. A trace right apical pneumothorax is also seen. The patient otherwise has no specific complaints. White cell count at 9.3 with a hemoglobin 12 and a platelet count of 228. BUN is 21 with a creatinine of 0.8 and sodium levels at 133. Remains on DuoNeb nebulized treatments [id number]. Using incentive spirometer on a regular basis. Tramadol for pain control in addition to Toradol. On today's evaluation of 01/27/2024, the patient is experiencing some pain along the right chest. Noted the patient is post right lower lobe resection. The patient is currently postop day #3. The chest tube evaluation showing some intermittent leaks and a chest x-ray from today is not showing any evidence of pneumothorax. Using incentive spirometer. Pulling approximately thousand on her incentive spirometer. The patient has produced approximately 450 cc of somewhat blood-tinged pleural fluid over the past 24 hours and approximate 200s over the past 8 hours. As such, the decision was to keep the chest tube in place. Blood work shows a BUN of 21 with a creatinine of 0.6. The WBC count is 7.6 with a hemoglobin of 11 and a platelet count of 195. Afebrile. Hemodynamically stable. Pain control is with tramadol 50 mg every 6 hours on a as needed basis the patient was also given Dilaudid 0.5 mg every 3 hours as needed in combination with Toradol. She remains on DuoNeb nebulized treatments [id number]. She is on room air oxygen. Objective - Vital Signs Vital signs: Vital Signs Temp 97.8 F 01/27/24 07:40 Pulse 65 01/27/24 09:32 Resp 17 01/27/24 07:40 BP 133/70 01/27/24 07:40 Pulse Ox 94 L 01/27/24 07:40 FiO2 Intake & Output 01/26/24 01/27/24 01/27/24 18:59 06:59 18:59 Intake Total 780 Output Total 690 500 50 Balance 90 -500 -50 Weight 94.8 kg Intake: Oral 780 Output: Chest Tube Drainage 240 300 50 Right Posterior Chest 240 300 50 Urine 450 200 Other: Voiding Method Toilet Toilet Toilet - Exam General appearance the patient is calm comfortable on room air oxygen Head exam was generally normal. There was no scleral icterus or corneal arcus. Mucous membranes were moist. Neck was supple and without jugular venous distension, thyromegaly, or carotid bruits. Carotids were easily palpable bilaterally. There was no adenopathy. Lung sounds are diminished in the right lung base. The patient is right-sided chest in place. No significant air leak. The patient has a clean surgical wound site involving the right lung. Heart sounds are irregular consistent with atrial fibrillation. Positive S1-S2. No significant murmurs appreciated. Abdominal exam revealed normal bowel sounds. The abdomen was soft, non-tender, and without masses, organomegaly, or appreciable enlargement of the abdominal aorta. Examination of the extremities revealed easily palpable radial, femoral and pedal pulses. There was no cyanosis, clubbing or edema. Examination of the skin revealed no evidence of significant rashes, suspicious appearing nevi or other concerning lesions. Neurologically, the patient is awake and alert and the patient does not have any focal neurological deficit. Cranial nerves are essentially intact. - Labs CBC & Chem 7: 01/27/24 09:26 01/27/24 09:26 Labs: Abnormal Lab Results - Last 24 Hours (Table) 01/27/24 01/27/24 Range/Units 09:26 09:26 RBC 3.61 L (3.80-5.40) m/uL Hgb 11.0 L (11.4-16.0) gm/dL Sodium 133 L (137-145) mmol/L Carbon Dioxide 33 H (22-30) mmol/L BUN 21 H (7-17) mg/dL Glucose 105 H (74-99) mg/dL Assessment and Plan Plan: Pulm adenocarcinoma and the patient presented with a 3.3 x 3 cm right lower lobe mass had a preoperative lung biopsy showed lipidic adenocarcinoma the patient underwent a robotic assisted right lower lobe resection. The patient is curr ently postop day # 3 Postthoracotomy, right-sided chest tube in place and there is diminution of the right-sided pneumothorax, intermittent air leak is present, no evidence of any pneumothorax. Output in the Pleur-evac over the past 24 hours has been in the order of 450 cc and 200 cc over the past 8 hours. As such, the chest will be kept in place. Continues to have some limited intermittent air leak Right-sided chest wall pain, essentially postsurgical in nature and the patient is on currently on a combination of Toradol, Dilaudid and tramadol administrate basis. Acute hypoxic respiratory failure, expected outcome of surgery and the patient is currently on room air oxygen Chronic atrial fibrillation maintained on Xarelto on outpatient basis Hypertension Hyperlipidemia History of bronchial asthma, the patient is a lifelong non-smoker Chronic back pain History of ASD Osteoarthritis Plan Keep the chest tube in place for another 24 hours and monitor the intermittent air leak Continue using the incentive spirometer Patient is currently on room air oxygen Continue Symbicort Continue DuoNeb [facility] Daily chest x-rays Toradol for pain control in combination with tramadol, Dilaudid was also added for pain control. The patient is also on tramadol. Continue metoprolol 12.5 mg p.o. twice a day Increase mobility and ambulation Will continue to follow make further recommendations based on her progress.
--- NOTE | 2024-01-27 16:45 | XR ---
EXAMINATION TYPE: XR chest 2V DATE OF EXAM: 01/27/2024 6:44 AM CLINICAL INDICATION:Female, 83 years old with history of post lobectomy; [facility] COMPARISON: 01/26/2024 and 01/25/2024 TECHNIQUE: XR chest 2V. Frontal and lateral views of the chest.. FINDINGS: Lines/Tubes/Devices: Stable right chest tube terminating at the right lung apex. Monitor leads. Heart/mediastinum: Cardiomediastinal silhouette is unchanged. Heart appears mildly enlarged. Stable c onfiguration of the mediastinum. Pulmonary vascularity: Not increased, Lungs/Pleura: Slightly increased conspicuity of focal opacities in the right mid to upper lung. Simil ar appearance of right basilar consolidation and small effusion. Similar-appearing nodular opacity pr ojecting over the spine on the lateral view, potentially related to spinal osteophytes versus true pu lmonary nodule. Left lung is stable. No sizable pneumothorax visualized. Musculoskeletal: Osseous structures appear unchanged. Degenerative findings in the spine and shoulder s. Similar mild asymmetric elevation of the right hemidiaphragm. Other findings: Redemonstration of curvilinear lucency which is likely free air below the right hemid iaphragm. The appearance is similar to the prior study. Again, correlate for any recent abdominal ac derek otherwise perforated viscus must be considered. IMPRESSION: 1. Stable position of right apical chest tube. No sizable residual pneumothorax. 2. Slightly increased focal opacities in the right mid to upper lung, may present pulmonary nodulari ty and/or infiltrate. Continued follow-up advised. 3. Stable right basilar consolidation and small effusion. 4. Redemonstration of probable free air beneath the right hemidiaphragm, as discussed above.
[2024-01-28 07:12] LABS: HCT 34.4 % (34.0-46.0); HGB 11.2 gm/dL (11.4-16.0); MCH 30.7 pg (25.0-35.0); MCHC 32.5 g/dL (31.0-37.0); MCV 94.2 fL (80.0-100.0); Mean Platelet Volume 7.9; Platelet Count 224 k/uL (150-450); RBC 3.65 m/uL (3.80-5.40); RDW 12.8 % (11.5-15.5); WBC 8.3 k/uL (3.8-10.6)
[2024-01-28 08:16] LABS: African American GFR (CKD) >90 (>60 ml/min/1.73 sqM); Anion Gap 6 mmol/L; Blood Urea Nitrogen 19 mg/dL (7-17); Calcium 9.1 mg/dL (8.4-10.2); Carbon Dioxide 28 mmol/L (22-30); Chloride 99 mmol/L (98-107); Glucose 93 mg/dL (74-99); Non-African American GFR(CKD) 86 (>60 ml/min/1.73 sqM); Potassium 4.7 mmol/L (3.5-5.1); Sodium 133 mmol/L (137-145)
--- NOTE | 2024-01-28 08:16 | P.PN ---
Subjective Progress Note Date: 01/28/24 Principal diagnosis: Lepidic adenocarcinoma right lower lobe. Previous medical history of hypertension, hyperlipidemia, paroxysmal atrial fibrillation status post ablation on Xarelto for anticoagulation, DVT, atrial septal defect, asthma, lifelong non-smoker POD #4 bronchoscopy, right robotic assisted thorascopic surgery with right lower lobectomy, mediastinal lymph node dissection, intercostal nerve block - 3 levels The patient was seen and examined with Dr. Amaral sitting up in recliner on the cardiac stepdown unit in no acute distress. States pain is best controlled with IV dilaudid, oral pain meds don't work as well. Denies shortness of breath. Remains on room air, able to achieve 1250 mL on her incentive spirometry. Right pleural chest tube remains present to waterseal, tiny air leak with forceful coughing, 450 mL output in the last 24 hours. Patient has been ambulatory with walker in the hallway. Blood pressure does appear to be creeping up, mostly fe lt to be a pain response, meds being adjusted. No other new concerns. Objective - Vital Signs Vital signs: Vital Signs Temp 98.4 F 01/28/24 03:04 Pulse 75 01/28/24 03:04 Resp 20 01/28/24 03:04 BP 164/80 01/28/24 03:04 Pulse Ox 94 L 01/28/24 03:04 FiO2 Intake & Output 01/27/24 01/28/24 01/28/24 18:59 06:59 18:59 Intake Total 118 120 Output Total 370 260 Balance -252 -140 Weight 94.5 kg Intake: Oral 118 120 Output: Chest Tube Drainage 170 60 Right Posterior Chest 170 60 Urine 200 200 Other: Voiding Method Toilet Toilet # Voids 2 - Exam CONSTITUTIONAL: Appears comfortable, cooperative, no acute distress RESPIRATORY: Lungs sounds diminished bilaterally. Respirations even, nonlabored. Currently on room air with oxygen saturation 94%. Able to achieve 1250 mL on incentive spirometry. Strong cough. CARDIOVASCULAR: S1, S2 present. Regular rate and rhythm, sinus rhythm on telemetry. Palpable peripheral pulses bilaterally. No edema present. No calf pain or tenderness noted. SCDs present. GASTROINTESTINAL: Abdomen soft, nontender, nondistended. Active bowel sounds present 4 quadrants. Tolerating diet. Positive flatus GENITOURINARY: Continues to void clear, yellow urine INTEGUMENTARY: Skin is warm and dry with evidence of good perfusion NEUROLOGIC: Cranial nerves II through XII intact MUSKULOSKELETAL: Able to move all extremities, strength equal bilaterally, gait normal PSYCHIATRIC: Alert and oriented to person place and time, appropriate affect, intact judgment and insight INVASIVE LINES AND TUBES: Right pleural chest tubes present to waterseal, tiny air leak present with forceful coughing, 50 mL serosanguineous drainage overnight, 450 mL in the last 24 hours - Allied health notes Allied health notes reviewed: nursing - Labs CBC & Chem 7: 01/28/24 05:41 01/27/24 09:26 Labs: Abnormal Lab Results - Last 24 Hours (Table) 01/27/24 01/27/24 01/28/24 Range/Units 09:26 09:26 05:41 RBC 3.61 L 3.65 L (3.80-5.40) m/uL Hgb 11.0 L 11.2 L (11.4-16.0) gm/dL Sodium 133 L (137-145) mmol/L Carbon Dioxide 33 H (22-30) mmol/L BUN 21 H (7-17) mg/dL Glucose 105 H (74-99) mg/dL - Imaging and Cardiology Chest x-ray: image reviewed Assessment and Plan Assessment: Lepidic adenocarcinoma right lower lobe, status post bronchoscopy, right robotic assisted thorascopic surgery with right lower lobectomy, mediastinal lymph node dissection, intercostal nerve block - 3 levels History of hypertension Hyperlipidemia Paroxysmal atrial fibrillation status post ablation on Xarelto for anticoagulation, currently sinus DVT Atrial septal defect Asthma Lifelong non-smoker Plan: Continue to maximize medical therapy, will continue to hold Xarelto until after chest tube is removed Lopressor increased, oral hydralazine added for better blood pressure control Encourage incentive spirometry use 10 times every hour while awake Will continue right pleural chest tube to waterseal for another 24 hours, monitor output Will monitor daily labs and x-rays Increase activity as tolerated Pain control with current medication regimen, will discontinue narcotics after chest tube removed More recommendations to follow
--- NOTE | 2024-01-28 08:17 | XR ---
EXAMINATION TYPE: XR chest 2V DATE OF EXAM: 01/28/2024 6:36 AM CLINICAL INDICATION:Female, 83 years old with history of post lobectomy; [facility] COMPARISON: Chest radiographs from 01/27/2024 TECHNIQUE: XR chest 2V Frontal and lateral views of the chest. FINDINGS: Lungs/Pleura: Small right pleural effusion. Post surgical changes compatible with lobectomy. There is no evidence of left pleural effusion, focal consolidation, or pneumothorax. Pulmonary vascularity: Unremarkable. Heart/mediastinum: Cardiomediastinal silhouette is enlarged and stable. Musculoskeletal: No acute osseous pathology. Right thoracotomy tube in place. No pneumothorax definitively visualized. IMPRESSION: Right thoracotomy tube in place without significant pneumothorax. Trace right pleural effusion.
[2024-01-28] MEDS: hydrALAZINE HCL 10 MG TAB PO SCH (09:44)
[2024-01-28] MEDS: METOPROLOL TARTRATE 25 MG TAB PO SCH (09:45)
--- NOTE | 2024-01-28 16:59 | P.PN ---
Subjective Progress Note Date: 01/28/24 This is a 83-year-old female patient underwent a robotic assisted thoracoscopic lung surgery and the patient underwent a right lower lobectomy along with mediastinal lymph node dissection. Surgery was done with minimal blood loss in the order of 25 cc. Patient is currently on the medical floor and the patient is currently on 2 L of oxygen by nasal cannula with a pulse ox of 99 to 100%. The postop chest x-ray shows a tiny 5 to 10% right apical pneumothorax. There is subcutaneous emphysema. Left lung is clear. Volume loss is seen on the right lung. Chest tube is in a good location. 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 The patient had a PET avid right lower lobe lesion that which I biopsied that turned out to be positive for adenocarcinoma. Previous medical history includes chronic A-fib, ASD, hyperlipidemia and history of seborrheic dermatitis and history of mitral valve prolapse. The patient had a 3.3 x 3 cm right lower lobe mass. She is a non- smoker. Her baseline FEV1 was in order of 1.82 L post bronchodilation. 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 On today's evaluation of 01/25/2024, I am seeing the patient for a follow-up. Patient is doing well. No specific complaints. The patient is post right lower lobe resection the patient is currently postop day #1. The patient also had mediastinal node dissection and intercostal nerve block, 3 levels. Sitting up in a chair. Ambulating. Right-sided chest tube in place with minimal amount of air leak and the volume has been in the order of 700 cc since surgery. Repeat chest x-ray from today shows diminution of the right apical pneumothorax which i s in order of 5%. There is another opacity measuring 1.7 cm another density in the right upper lobe area. This may be an atelectatic segment. Sodium levels at 133, BUN 25 with a creatinine of 0.5 and WBC count of 8.4 with a hemoglobin 12.3. The patient using incentive spirometer. The patient has a pulse ox of 94% on room air oxygen. On today's evaluation of 01/26/2024, the patient is being seen for a follow-up. The patient is postop day #2 following a right lower lobe resection. Right-erik ed chest tube in place and the patient continues to have some intermittent air leak. Repeat chest x-ray was done today and the patient has a right-sided chest tube, right sided small effusion, small curvilinear lucency projected in the right lung base could be related to some pneumoperitoneum. Nevertheless, the patient does not have any significant abdominal pain or tenderness. No nausea. No emesis. A trace right apical pneumothorax is also seen. The patient otherwise has no specific complaints. White cell count at 9.3 with a hemoglobin 12 and a platelet count of 228. BUN is 21 with a creatinine of 0.8 and sodium levels at 133. Remains on DuoNeb nebulized treatments [id number]. Using incentive spirometer on a regular basis. Tramadol for pain control in addition to Toradol. On today's evaluation of 01/27/2024, the patient is experiencing some pain along the right chest. Noted the patient is post right lower lobe resection. The patient is currently postop day #3. The chest tube evaluation showing some intermittent leaks and a chest x-ray from today is not showing any evidence of pneumothorax. Using incentive spirometer. Pulling approximately thousand on her incentive spirometer. The patient has produced approximately 450 cc of somewhat blood-tinged pleural fluid over the past 24 hours and approximate 200s over the past 8 hours. As such, the decision was to keep the chest tube in place. Blood work shows a BUN of 21 with a creatinine of 0.6. The WBC count is 7.6 with a hemoglobin of 11 and a platelet count of 195. Afebrile. Hemodynamically stable. Pain control is with tramadol 50 mg every 6 hours on a as needed basis the patient was also given Dilaudid 0.5 mg every 3 hours as needed in combination with Toradol. She remains on DuoNeb nebulized treatments [id number]. She is on room air oxygen. The patient is seen today January 28, 2024 in follow-up on the selective care unit. She is currently sitting up in a chair at the bedside. Awake and alert in no acute distress. Maintaining O2 saturations in the 90s on room air. Is postoperative day #4. Chest tube continues to reveal a positive leak. Chest x- ray reveals no significant pneumothorax. Trace right pleural effusion. Pathology is pending. White count 8.3. Hemoglobin 11.2. Platelets 224. Sodium 133. Potassium 4.7. Bicarb 28. BUN 19. Creatinine 0.59. He is continued on DuoNeb ventilations, Symbicort. Working well with the incentive spirometer. Objective - Vital Signs Vital signs: Vital Signs Temp 97.7 F 01/28/24 15:34 Pulse 80 01/28/24 15:55 Resp 20 01/28/24 15:34 BP 108/68 01/28/24 15:34 Pulse Ox 92 L 01/28/24 15:34 FiO2 Intake & Output 01/27/24 01/28/24 01/28/24 18:59 06:59 18:59 Intake Total 118 120 480 Output Total 370 260 140 Balance -252 -140 340 Weight 94.5 kg Intake: Oral 118 120 480 Output: Chest Tube Drainage 170 60 140 Right Posterior Chest 170 60 140 Urine 200 200 Other: Voiding Method Toilet Toilet Toilet # Voids 2 - Exam GENERAL EXAM: Alert, pleasant 83-year-old female, on room air, up in a chair, fairly comfortable in no apparent distress. HEAD: Normocephalic. EYES: Normal reaction of pupils, equal size. NOSE: Clear with pink turbinates. THROAT: No erythema or exudates. NECK: No masses, no JVD. CHEST: No chest wall deformity. Right-sided chest tube remains in place. Positive leak. LUNGS: Equal air entry with few scattered rhonchi, crackles in the right lung base. CVS: S1 and S2 normal with no audible murmur, regular rhythm. ABDOMEN: No hepatosplenomegaly, normal bowel sounds, no guarding or rigidity. SPINE: No scoliosis or deformity SKIN: No rashes CENTRAL NERVOUS SYSTEM: No focal deficits, tone is normal in all 4 extremities. EXTREMITIES: There is no peripheral edema. No clubbing, no cyanosis. Peripheral pulses are intact. - Labs CBC & Chem 7: 01/28/24 05:41 01/28/24 05:41 Labs: Abnormal Lab Results - Last 24 Hours (Table) 01/28/24 01/28/24 Range/Units 05:41 05:41 RBC 3.65 L (3.80-5.40) m/uL Hgb 11.2 L (11.4-16.0) gm/dL Sodium 133 L (137-145) mmol/L BUN 19 H (7-17) mg/dL Assessment and Plan Assessment: Pulmonary adenocarcinoma and the patient presented with a 3.3 x 3 cm right lower lobe mass had a preoperative lung biopsy showed lipidic adenocarcinoma the patient underwent a robotic assisted right lower lobe resection. The patient is currently postop day # 4 Postthoracotomy, right-sided chest tube in place and there is diminution of the right-sided pneumothorax, intermittent air leak is present, no evidence of any pneumothorax. As such, the chest will be kept in place. Right-sided chest wall pain, essentially postsurgical in nature and the patient is on currently on a combination of Toradol, Dilaudid and tramadol administrate basis. Acute hypoxic respiratory failure, expected outcome of surgery and the patient is currently on room air oxygen Chronic atrial fibrillation maintained on Xarelto on outpatient basis Hypertension Hyperlipidemia History of bronchial asthma, the patient is a lifelong non-smoker Chronic back pain History of ASD Osteoarthritis Plan: The patient was seen and evaluated Chest x-ray, labs and medications reviewed Continue bronchodilators Continue frequent utilization of the incentive spirometer Stable and on room air Adequate pain control Increase activity as tolerated Follow-up chest x-ray in a.m. We will continue to follow I have personally seen and examined the patient, performed the documentation and the assessment and plan as written. Number of minutes spent on the visit: 10.
[2024-01-28] MEDS: KETOROLAC 15 MG/ML 1 ML VIAL IVP SCH (17:47)
[2024-01-29] MEDS: HYDROmorphone 0.5 MG/0.5 ML SYRINGE IVP PRN (08:03)
--- NOTE | 2024-01-29 08:24 | XR ---
EXAMINATION TYPE: XR chest 2V DATE OF EXAM: 01/29/2024 6:49 AM CLINICAL INDICATION:Female, 83 years old with history of post lobectomy; [facility] COMPARISON: Chest radiograph from one day prior. TECHNIQUE: XR chest 2V Frontal and lateral views of the chest. FINDINGS: Lungs/Pleura: Small right pleural effusion. Post surgical changes compatible with lobectomy. There is no evidence of left pleural effusion, focal consolidation, or pneumothorax. Pulmonary vascularity: Unremarkable. Heart/mediastinum: Cardiomediastinal silhouette is enlarged and stable. Musculoskeletal: No acute osseous pathology. Right thoracotomy tube in place. No pneumothorax definitively visualized. IMPRESSION: Right thoracotomy tube in place without significant pneumothorax. Trace right pleural effusion.
--- NOTE | 2024-01-29 10:05 | P.PN ---
Subjective Progress Note Date: 01/29/24 Principal diagnosis: Lepidic adenocarcinoma right lower lobe. Previous medical history of hypertension, hyperlipidemia, paroxysmal atrial fibrillation status post ablation on Xarelto for anticoagulation, DVT, atrial septal defect, asthma, lifelong non-smoker POD #5 bronchoscopy, right robotic assisted thorascopic surgery with right lower lobectomy, mediastinal lymph node dissection, intercostal nerve block - 3 levels The patient was seen and examined sitting up in recliner on the cardiac stepdown unit in no acute distress. States pain is best controlled with IV dilaudid, oral pain meds don't work as well. Denies shortness of breath. Remains on room air, able to achieve 1250 mL on her incentive spirometry. Right pleural chest tube remains present to waterseal, no air leak this morning, 400 mL output in the last 24 hours. Patient has been ambulatory with walker in the hallway. No other new concerns. Objective - Vital Signs Vital signs: Vital Signs Temp 97.5 F L 01/29/24 07:58 Pulse 76 01/29/24 09:21 Resp 20 01/29/24 07:58 BP 138/76 01/29/24 07:58 Pulse Ox 95 01/29/24 07:58 FiO2 Intake & Output 01/28/24 01/29/24 01/29/24 18:59 06:59 18:59 Intake Total 717 0 0 Output Total 460 450 Balance 257 0 -450 Intake: Oral 717 0 0 Output: Chest Tube Drainage 160 100 Right Posterior Chest 160 100 Urine 300 350 Other: Voiding Method Toilet Toilet Toilet # Voids 1 - Exam CONSTITUTIONAL: Appears comfortable, cooperative, no acute distress RESPIRATORY: Lungs sounds diminished bilaterally. Respirations even, nonlabored. Currently on room air with oxygen saturation 94%. Able to achieve 1250 mL on incentive spirometry. Strong cough. CARDIOVASCULAR: S1, S2 present. Regular rate and rhythm, sinus rhythm on telemetry. Palpable peripheral pulses bilaterally. No edema present. No calf pain or tenderness noted. SCDs present. GASTROINTESTINAL: Abdomen soft, nontender, nondistended. Active bowel sounds present 4 quadrants. Tolerating diet. Positive flatus GENITOURINARY: Continues to void clear, yellow urine INTEGUMENTARY: Skin is warm and dry with evidence of good perfusion NEUROLOGIC: Cranial nerves II through XII intact MUSKULOSKELETAL: Able to move all extremities, strength equal bilaterally, gait normal PSYCHIATRIC: Alert and oriented to person place and time, appropriate affect, intact judgment and insight INVASIVE LINES AND TUBES: Right pleural chest tubes present to waterseal, no air leak present, 400 mL drainage in the last 24 hours - Allied health notes Allied health notes reviewed: nursing - Labs CBC & Chem 7: 01/28/24 05:41 01/28/24 05:41 - Imaging and Cardiology Chest x-ray: report reviewed, image reviewed Assessment and Plan Assessment: Lepidic adenocarcinoma right lower lobe, status post bronchoscopy, right robotic assisted thorascopic surgery with right lower lobectomy, mediastinal lymph node dissection, intercostal nerve block - 3 levels History of hypertension Hyperlipidemia Paroxysmal atrial fibrillation status post ablation on Xarelto for anticoagu lation, currently sinus DVT Atrial septal defect Asthma Lifelong non-smoker Plan: Continue to maximize medical therapy, will continue to hold Xarelto until after chest tube is removed Encourage incentive spirometry use 10 times every hour while awake Chest tube clamped, will unclamp in a few hours, if no airleak present will discontinue chest tube Will monitor daily labs and x-rays Increase activity as tolerated Pain control with current medication regimen, will discontinue narcotics after chest tube removed More recommendations to follow
[2024-01-29] MEDS: MAGNESIUM HYDROXIDE 2,400 MG/30 ML CUP PO STA (10:19)
[2024-01-29 10:57] VITALS: BMI 31.6
[2024-01-29 10:59] LABS: HCT 34.1 % (34.0-46.0); HGB 10.7 gm/dL (11.4-16.0); MCH 29.8 pg (25.0-35.0); MCHC 31.4 g/dL (31.0-37.0); MCV 94.8 fL (80.0-100.0); Mean Platelet Volume 7.9; Platelet Count 220 k/uL (150-450); RDW 13.2 % (11.5-15.5); WBC 8.4 k/uL (3.8-10.6)
[2024-01-29 11:08] LABS: African American GFR (CKD) >90 (>60 ml/min/1.73 sqM); Anion Gap 4 mmol/L; Blood Urea Nitrogen 25 mg/dL (7-17); Calcium 8.9 mg/dL (8.4-10.2); Carbon Dioxide 30 mmol/L (22-30); Chloride 99 mmol/L (98-107); Glucose 120 mg/dL (74-99); Non-African American GFR(CKD) 83 (>60 ml/min/1.73 sqM); Potassium 4.4 mmol/L (3.5-5.1); Sodium 133 mmol/L (137-145)
--- NOTE | 2024-01-29 14:47 | P.PN ---
Subjective Progress Note Date: 01/29/24 Principal diagnosis: Pulmonary adenocarcinoma, status post robotic right lower lobe resection, postoperative day #5 This is a 83-year-old female patient underwent a robotic assisted thoracoscopic lung surgery and the patient underwent a right lower lobectomy along with mediastinal lymph node dissection. Surgery was done with minimal blood loss in the order of 25 cc. Patient is currently on the medical floor and the patient is currently on 2 L of oxygen by nasal cannula with a pulse ox of 99 to 100%. The postop chest x-ray shows a tiny 5 to 10% right apical pneumothorax. There is subcutaneous emphysema. Left lung is clear. Volume loss is seen on the right lung. Chest tube is in a good location. 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 The patient had a PET avid right lower lobe lesion that which I biopsied that turned out to be positive for adenocarcinoma. Previous medical history includes chronic A-fib, ASD, hyperlip idemia and history of seborrheic dermatitis and history of mitral valve prolapse. The patient had a 3.3 x 3 cm right lower lobe mass. She is a non- smoker. Her baseline FEV1 was in order of 1.82 L post bronchodilation. 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 On today's evaluation of 01/25/2024, I am seeing the patient for a follow-up. Patient is doing well. No specific complaints. The patient is post right lower lobe resection the patient is currently postop day #1. The patient also had mediastinal node dissection and intercostal nerve block, 3 levels. Sitting up in a chair. Ambulating. Right-sided chest tube in place with minimal amount of air leak and the volume has been in the order of 700 cc since surgery. Repeat chest x-ray from today shows diminution of the right apical pneumothorax which is in order of 5%. There is another opacity measuring 1.7 cm another density in the right upper lobe area. This may be an atelectatic segment. Sodium levels at 133, BUN 25 with a creatinine of 0.5 and WBC count of 8.4 with a hemoglobin 12.3. The patient using incentive spirometer. The patient has a pulse ox of 94% on room air oxygen. On today's evaluation of 01/26/2024, the patient is being seen for a follow-up. The patient is postop day #2 following a right lower lobe resection. Right- sided chest tube in place and the patient continues to have some intermittent air leak. Repeat chest x-ray was done today and the patient has a right-sided chest tube, right sided small effusion, small curvilinear lucency projected in the right lung base could be related to some pneumoperitoneum. Nevertheless, the patient does not have any significant abdominal pain or tenderness. No nausea. No emesis. A trace right apical pneumothorax is also seen. The patient otherwise has no specific complaints. White cell count at 9.3 with a hemoglobin 12 and a platelet count of 228. BUN is 21 with a creatinine of 0.8 and sodium levels at 133. Remains on DuoNeb nebulized treatments [id number]. Using incentive spirometer on a regular basis. Tramadol for pain control in addition to Toradol. On today's evaluation of 01/27/2024, the patient is experiencing some pain along the right chest. Noted the patient is post right lower lobe resection. The patient is currently postop day #3. The chest tube evaluation showing some intermittent leaks and a chest x-ray from today is not showing any evidence of pneumothorax. Using incentive spirometer. Pulling approximately thousand on her incentive spirometer. The patient has produced approximately 450 cc of somewhat blood-tinged pleural fluid over the past 24 hours and approximate 200s over the past 8 hours. As such, the decision was to keep the chest tube in place. Blood work shows a BUN of 21 with a creatinine of 0.6. The WBC count is 7.6 with a hemoglobin of 11 and a platelet count of 195. Afebrile. Hemodynamically stable. Pain control is with tramadol 50 mg every 6 hours on a as needed basis the patient was also given Dilaudid 0.5 mg every 3 hours as needed in combination with Toradol. She remains on DuoNeb nebulized treatments [id number]. She is on room air oxygen. The patient is seen today January 28, 2024 in follow-up on the selective care unit. She is currently sitting up in a chair at the bedside. Awake and alert in no acute distress. Maintaining O2 saturations in the 90s on room air. Is postoperative day #4. Chest tube continues to reveal a positive leak. Chest x- ray reveals no significant pneumothorax. Trace right pleural effusion. Pathology is pending. White count 8.3. Hemoglobin 11.2. Platelets 224. Sodium 133. Potassium 4.7. Bicarb 28. BUN 19. Creatinine 0.59. He is continued on DuoNeb ventilations, Symbicort. Working well with the incentive spirometer. Patient was reevaluated today on 01/29/2024, patient is postoperative day #5, bronchoscopy, right robotic assisted thoracoscopic surgery with right lower lobectomy, mediastinal lymph node dissection and intercostal nerve block 3 level. Patient is sitting in bed, not in distress, pain seems to be under fairly good control. Denies any shortness of breath, continues to have chest tube in place, it is presently clamped, I believe thoracic surgery is planning repeat chest x-ray later this afternoon to decide on removal of the chest tube. Apparently there was no air leak. Chest x-ray showed no evidence of pneumothorax. CBC is relatively normal basic metabolic profile is normal Objective - Vital Signs Vital signs: Vital Signs Temp 97.5 F L 01/29/24 07:58 Pulse 70 01/29/24 11:01 Resp 20 01/29/24 11:01 BP 111/68 01/29/24 11:01 Pulse Ox 100 01/29/24 11:01 FiO2 Intake & Output 01/28/24 01/29/24 01/29/24 18:59 06:59 18:59 Intake Total 717 0 474 Output Total 460 625 Balance 257 0 -151 Weight 94.5 kg Intake: Oral 717 0 474 Output: Chest Tube Drainage 160 175 Right Posterior Chest 160 175 Urine 300 450 Other: Voiding Method Toilet Toilet Toilet # Voids 1 - Exam GENERAL EXAM: Alert, pleasant 83-year-old female, on room air, in no distress. HEAD: Normocephalic. EYES: Normal reaction of pupils, equal size. NOSE: Clear with pink turbinates. THROAT: No erythema or exudates. NECK: No masses, no JVD. CHEST: No chest wall deformity. Right-sided chest tube remains in place. Positive leak. LUNGS: Diminished breath sounds at the bases, right-sided chest tube is noted presently clamped still connected to Pleur-evac. CVS: S1 and S2 normal with no audible murmur, regular rhythm. ABDOMEN: No hepatosplenomegaly, normal bowel sounds, no guarding or rigidity. SKIN: No rashes CENTRAL NERVOUS SYSTEM: Alert and oriented x 3 no gross focal deficits EXTREMITIES: No clubbing edema or cyanosis Psychiatric: Normal mood affect and normal mental status examination - Labs CBC & Chem 7: 01/29/24 10:34 01/29/24 10:34 Labs: Abnormal Lab Results - Last 24 Hours (Table) 01/29/24 01/29/24 Range/Units 10:34 10:34 RBC 3.60 L (3.80-5.40) m/uL Hgb 10.7 L (11.4-16.0) gm/dL Sodium 133 L (137-145) mmol/L BUN 25 H (7-17) mg/dL Glucose 120 H (74-99) mg/dL Assessment and Plan Assessment: Impression:POD #5 bronchoscopy, right robotic assisted thorascopic surgery with right lower lobectomy, mediastinal lymph node dissection, intercostal nerve block - 3 levels Lepidic adenocarcinoma right lower lobe Dyslipidemia Paroxysmal atrial fibrillation on Xarelto History of deep vein thrombosis History of atrial septal defect Mild intermittent asthma Lifelong non-smoker Recommendation: Continue maximal medical therapy Continue incentive spirometry Chest tube is presently clamped, follow-up chest x-ray is pending this afternoon. If no airleak the chest tube will be removed Ambulate as tolerated. Continue pain control medications. Continue bronchodilators. Will continue to follow Time with Patient: Less than 30
[2024-01-29] MEDS: bisacodyL 10 MG SUPP RECTAL ONE (15:02)
--- NOTE | 2024-01-30 08:19 | XR ---
EXAMINATION TYPE: XR chest 2V DATE OF EXAM: 01/30/2024 6:24 AM CLINICAL INDICATION:Female, 83 years old with history of post lobectomy; [facility] COMPARISON: Chest radiographs from TECHNIQUE: XR chest 2V Frontal and lateral views of the chest. FINDINGS: EXAMINATION TYPE: XR chest 2V DATE OF EXAM: 01/30/2024 6:24 AM CLINICAL INDICATION:Female, 83 years old with history of post lobectomy; [facility] COMPARISON: Chest radiograph from one day prior. TECHNIQUE: XR chest 2V Frontal and lateral views of the chest. FINDINGS: Lungs/Pleura: Small right pleural effusion. Post surgical changes compatible with lobectomy. There is trace right pneumothorax but to be present with visceral pleural line. There is no evidence of left pleural effusion, focal consolidation, or left pneumothorax. Pulmonary vascularity: Unremarkable. Heart/mediastinum: Cardiomediastinal silhouette is enlarged and stable. Musculoskeletal: No acute osseous pathology. Right thoracotomy tube in place. No pneumothorax definitively visualized. IMPRESSION: Right thoracotomy tube in place with trace pneumothorax now apparent. Trace right pleural effusion.
--- NOTE | 2024-01-30 08:19 | P.PN ---
Subjective Progress Note Date: 01/30/24 Principal diagnosis: Lepidic adenocarcinoma right lower lobe. Previous medical history of hypertension, hyperlipidemia, paroxysmal atrial fibrillation status post ablation on Xarelto for anticoagulation, DVT, atrial septal defect, asthma, lifelong non-smoker POD #6 bronchoscopy, right robotic assisted thorascopic surgery with right lower lobectomy, mediastinal lymph node dissection, intercostal nerve block - 3 levels Prolonged air leak, unexpected but not uncommon after lung surgery The patient was seen and examined sitting up in recliner on the cardiac stepdown unit in no acute distress. States pain is best controlled with IV dilaudid, oral pain meds don't work as well, although every time we come in the room the patient appears sleepy. Denies shortness of breath. Remains on room air, able to achieve 1250 mL on her incentive spirometry. Right pleural chest tube remains present to waterseal, tiny singular air bubble with multiple coughing attempts, 200 mL output in the last 24 hours. Patient has been ambulatory with walker in the hallway. No bowel movement since surgery. No other new concerns. Objective - Vital Signs Vital signs: Vital Signs Temp 97.4 F L 01/29/24 20:21 Pulse 66 01/30/24 08:07 Resp 18 01/30/24 04:56 BP 131/59 01/30/24 04:56 Pulse Ox 95 01/30/24 08:07 FiO2 Intake & Output 01/29/24 01/30/24 01/30/24 18:59 06:59 18:59 Intake Total 711 Output Total 640 400 Balance 71 -400 Weight 94.5 kg 95.7 kg Intake: Oral 711 Output: Chest Tube Drainage 190 100 Right Posterior Chest 190 100 Urine 450 300 Other: Voiding Method Toilet Toilet - Exam CONSTITUTIONAL: Appears comfortable, cooperative, no acute distress RESPIRATORY: Lungs sounds diminished bilaterally. Respirations even, nonlabored. Currently on room air with oxygen saturation 94%. Able to achieve 1250 mL on incentive spirometry. Strong cough. CARDIOVASCULAR: S1, S2 present. Regular rate and rhythm, sinus rhythm on telemetry. Palpable peripheral pulses bilaterally. No edema present. No calf pain or tenderness noted. SCDs present. GASTROINTESTINAL: Abdomen soft, nontender, nondistended. Active bowel sounds present 4 quadrants. Tolerating diet. Positive flatus GENITOURINARY: Continues to void clear, yellow urine INTEGUMENTARY: Skin is warm and dry with evidence of good perfusion NEUROLOGIC: Cranial nerves II through XII intact MUSKULOSKELETAL: Able to move all extremities, strength equal bilaterally, gait normal PSYCHIATRIC: Alert and oriented to person place and time, appropriate affect, intact judgment and insight INVASIVE LINES AND TUBES: Right pleural chest tubes present to waterseal, singular air leak present, 200 mL drainage in the last 24 hours - Allied health notes Allied health notes reviewed: nursing - Labs CBC & Chem 7: 01/29/24 10:34 01/29/24 10:34 Labs: Abnormal Lab Results - Last 24 Hours (Table) 01/29/24 01/29/24 Range/Units 10:34 10:34 RBC 3.60 L (3.80-5.40) m/uL Hgb 10.7 L (11.4-16.0) gm/dL Sodium 133 L (137-145) mmol/L BUN 25 H (7-17) mg/dL Glucose 120 H (74-99) mg/dL - Imaging and Cardiology Chest x-ray: image reviewed Assessment and Plan Assessment: Lepidic adenocarcinoma right lower lobe, status post bronchoscopy, right robotic assisted thorascopic surgery with right lower lobectomy, mediastinal lymph node dissection, intercostal nerve block - 3 levels History of hypertension Hyperlipidemia Paroxysmal atrial fibrillation status post ablation on Xarelto for anticoagulation, currently sinus DVT Atrial septal defect Asthma Lifelong non-smoker Plan: Continue to maximize medical therapy, will continue to hold Xarelto until after chest tube is removed Encourage incentive spirometry use 10 times every hour while awake Will clamp chest tube this afternoon, repeat CXR in am, if no pneumothorax will dc chest tube tomorrow morning Will monitor daily labs and x-rays Increase activity as tolerated Pain control with current medication regimen, will discontinue narcotics after chest tube removed More recommendations to follow
[2024-01-30] MEDS ORDERED: HYDROmorphone 0.5 MG/0.5 ML SYRINGE IVP PRN (14:16)
--- NOTE | 2024-01-30 14:41 | P.PN ---
Subjective Progress Note Date: 01/30/24 This is a 83-year-old female patient underwent a robotic assisted thoracoscopic lung surgery and the patient underwent a right lower lobectomy along with mediastinal lymph node dissection. Surgery was done with minimal blood loss in the order of 25 cc. Patient is currently on the medical floor and the patient is currently on 2 L of oxygen by nasal cannula with a pulse ox of 99 to 100%. The postop chest x-ray shows a tiny 5 to 10% right apical pneumothorax. There is subcutaneous emphysema. Left lung is clear. Volume loss is seen on the right lung. Chest tube is in a good location. 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 The patient had a PET avid right lower lobe lesion that which I biopsied that turned out to be positive for adenocarcinoma. Previous medical history includes chronic A-fib, ASD, hyperlipidemia and history of seborrheic dermatitis and history of mitral valve prolapse. The patient had a 3.3 x 3 cm right lower lobe mass. She is a non- smoker. Her baseline FEV1 was in order of 1.82 L post bronchodilation. 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 On today's evaluation of 01/25/2024, I am seeing the patient for a follow-up. Patient is doing well. No specific complaints. The patient is post right lower lobe resection the patient is currently postop day #1. The patient also had mediastinal node dissection and intercostal nerve block, 3 levels. Sitting up in a chair. Ambulating. Right-sided chest tube in place with minimal amount of air leak and the volume has been in the order of 700 cc since surgery. Repeat chest x-ray from today shows diminution of the right apical pneumothorax which i s in order of 5%. There is another opacity measuring 1.7 cm another density in the right upper lobe area. This may be an atelectatic segment. Sodium levels at 133, BUN 25 with a creatinine of 0.5 and WBC count of 8.4 with a hemoglobin 12.3. The patient using incentive spirometer. The patient has a pulse ox of 94% on room air oxygen. On today's evaluation of 01/26/2024, the patient is being seen for a follow-up. The patient is postop day #2 following a right lower lobe resection. Right-erik ed chest tube in place and the patient continues to have some intermittent air leak. Repeat chest x-ray was done today and the patient has a right-sided chest tube, right sided small effusion, small curvilinear lucency projected in the right lung base could be related to some pneumoperitoneum. Nevertheless, the patient does not have any significant abdominal pain or tenderness. No nausea. No emesis. A trace right apical pneumothorax is also seen. The patient otherwise has no specific complaints. White cell count at 9.3 with a hemoglobin 12 and a platelet count of 228. BUN is 21 with a creatinine of 0.8 and sodium levels at 133. Remains on DuoNeb nebulized treatments [id number]. Using incentive spirometer on a regular basis. Tramadol for pain control in addition to Toradol. On today's evaluation of 01/27/2024, the patient is experiencing some pain along the right chest. Noted the patient is post right lower lobe resection. The patient is currently postop day #3. The chest tube evaluation showing some intermittent leaks and a chest x-ray from today is not showing any evidence of pneumothorax. Using incentive spirometer. Pulling approximately thousand on her incentive spirometer. The patient has produced approximately 450 cc of somewhat blood-tinged pleural fluid over the past 24 hours and approximate 200s over the past 8 hours. As such, the decision was to keep the chest tube in place. Blood work shows a BUN of 21 with a creatinine of 0.6. The WBC count is 7.6 with a hemoglobin of 11 and a platelet count of 195. Afebrile. Hemodynamically stable. Pain control is with tramadol 50 mg every 6 hours on a as needed basis the patient was also given Dilaudid 0.5 mg every 3 hours as needed in combination with Toradol. She remains on DuoNeb nebulized treatments [id number]. She is on room air oxygen. The patient is seen today January 28, 2024 in follow-up on the selective care unit. She is currently sitting up in a chair at the bedside. Awake and alert in no acute distress. Maintaining O2 saturations in the 90s on room air. Is postoperative day #4. Chest tube continues to reveal a positive leak. Chest x- ray reveals no significant pneumothorax. Trace right pleural effusion. Pathology is pending. White count 8.3. Hemoglobin 11.2. Platelets 224. Sodium 133. Potassium 4.7. Bicarb 28. BUN 19. Creatinine 0.59. He is continued on DuoNeb ventilations, Symbicort. Working well with the incentive spirometer. Patient was reevaluated today on 01/29/2024, patient is postoperative day #5, bronchoscopy, right robotic assisted thoracoscopic surgery with right lower lobectomy, mediastinal lymph node dissection and intercostal nerve block 3 level. Patient is sitting in bed, not in distress, pain seems to be under fairly good control. Denies any shortness of breath, continues to have chest tube in place, it is presently clamped, I believe thoracic surgery is planning repeat chest x-ray later this afternoon to decide on removal of the chest tube. Apparently there was no air leak. Chest x-ray showed no evidence of pneumot horax. CBC is relatively normal basic metabolic profile is normal The patient is seen today January 30, 2024 in follow-up on the selective care unit. Postoperative day #6. She is currently sitting up in a chair at the bedside. Awake and alert in no acute distress. She is maintaining good O2 saturations in the 90s on room air. Chest x-ray reveals right thoracotomy tube in place with a trace pneumothorax in the right apex. Trace right pleural effusion. Plan is for the chest tube to be clamped today and follow-up chest x- ray tomorrow. No new labs today. She remains on DuoNeb inhalations, Symbicort. Working well with the incentive spirometer. Heparin for DVT prophylaxis. Objective - Vital Signs Vital signs: Vital Signs Temp 97.4 F L 01/30/24 08:05 Pulse 72 01/30/24 11:42 Resp 20 01/30/24 08:05 BP 136/63 01/30/24 08:05 Pulse Ox 95 01/30/24 08:07 FiO2 Intake & Output 01/29/24 01/30/24 01/30/24 18:59 06:59 18:59 Intake Total 711 776 Output Total 640 400 420 Balance 71 -400 356 Weight 94.5 kg 95.7 kg Intake: Oral 711 776 Output: Chest Tube Drainage 190 100 120 Right Posterior Chest 190 100 120 Urine 450 300 300 Other: Voiding Method Toilet Toilet Toilet - Exam GENERAL EXAM: Alert, 83-year-old female, on room air, up in a chair, comfortable in no apparent distress. HEAD: Normocephalic. EYES: Normal reaction of pupils, equal size. NOSE: Clear with pink turbinates. THROAT: No erythema or exudates. NECK: No masses, no JVD. CHEST: No chest wall deformity. Right-sided chest tube remains in place with very tiny leak. LUNGS: Equal air entry with few scattered rhonchi, crackles in the right lung base. CVS: S1 and S2 normal with no audible murmur, regular rhythm. ABDOMEN: No hepatosplenomegaly, normal bowel sounds, no guarding or rigidity. SPINE: No scoliosis or deformity SKIN: No rashes CENTRAL NERVOUS SYSTEM: No focal deficits, tone is normal in all 4 extremities. EXTREMITIES: There is no peripheral edema. No clubbing, no cyanosis. Peripheral pulses are intact. - Labs CBC & Chem 7: 01/29/24 10:34 01/29/24 10:34 Assessment and Plan Assessment: Pulmonary adenocarcinoma and the patient presented with a 3.3 x 3 cm right lower lobe mass had a preoperative lung biopsy showed lipidic adenocarcinoma the patient underwent a robotic assisted right lower lobe resection. The patient is currently postop day #6 Postthoracotomy, right-sided chest tube in place and there is diminution of the right-sided pneumothorax, very tiny air leak is present, with a small apical pneumothorax. As such, the chest will be kept in place Right-sided chest wall pain, essentially postsurgical in nature Acute hypoxic respiratory failure, expected outcome of surgery and the patient is currently on room air oxygen Chronic atrial fibrillation maintained on Xarelto on outpatient basis Hypertension Hyperlipidemia History of bronchial asthma, the patient is a lifelong non-smoker Chronic back pain History of ASD Osteoarthritis Plan: The patient was seen and evaluated Chest x-ray, medications reviewed Continue bronchodilators Continue the incentive spirometer Stable and on room air Increase activity as tolerated Chest tube is clamped per CT services Follow-up chest x-ray in a.m. We will continue to follow I have personally seen and examined the patient, performed the documentation and the assessment and plan as written. Number of minutes spent on the visit: 10.
[2024-01-30] MEDS: bisacodyL 10 MG SUPP RECTAL SCH (15:39)
[2024-01-31] MEDS: ONDANSETRON 4 MG/2 ML VIAL IVP PRN (00:44)
--- NOTE | 2024-01-31 08:38 | XR ---
EXAMINATION TYPE: XR chest 2V DATE OF EXAM: 01/31/2024 6:43 AM CLINICAL INDICATION:Female, 83 years old with history of pneumothorax post lobectomy; [facility] COMPARISON: Chest radiograph from one day prior. TECHNIQUE: XR chest 2V Frontal and lateral views of the chest. FINDINGS: FINDINGS: Lungs/Pleura: Small right pleural effusion. Post surgical changes compatible with lobectomy. There is trace right pneumothorax present with visceral pleural line. There is no evidence of left pleural ef fusion, focal consolidation, or left pneumothorax. Pulmonary vascularity: Unremarkable. Heart/mediastinum: Cardiomediastinal silhouette is enlarged and stable. Musculoskeletal: No acute osseous pathology. Right thoracotomy tube in place. No pneumothorax definitively visualized. IMPRESSION: Right thoracotomy tube in place with trace pneumothoraxa. Trace right pleural effusion.
--- NOTE | 2024-01-31 08:56 | P.PN ---
Subjective Progress Note Date: 01/31/24 Principal diagnosis: Lepidic adenocarcinoma right lower lobe. Previous medical history of hypertension, hyperlipidemia, paroxysmal atrial fibrillation status post ablation on Xarelto for anticoagulation, DVT, atrial septal defect, asthma, lifelong non-smoker POD #7 bronchoscopy, right robotic assisted thorascopic surgery with right lower lobectomy, mediastinal lymph node dissection, intercostal nerve block - 3 levels Prolonged air leak, unexpected but not uncommon after lung surgery The patient was seen and examined with Dr. Amaral sitting up in recliner on the cardiac stepdown unit in no acute distress. States pain is best controlled with IV dilaudid, oral pain meds don't work as well, although every time we come in the room the patient appears sleepy. Denies shortness of breath. Remains on room air, able to achieve 1250 mL on her incentive spirometry. Right pleural chest tube remains present to waterseal, tiny singular air bubble with multiple coughing attempts. Chest tube has been clamped since 2:38 yesterday afternoon, chest x-ray reviewed, no increase pneumothorax. Patient has been ambulatory with walker in the hallway. Positive bowel movement this morning per patient. No other new concerns. Objective - Vital Signs Vital signs: Vital Signs Temp 98.0 F 01/30/24 20:40 Pulse 76 01/31/24 08:04 Resp 16 01/31/24 03:21 BP 119/70 01/31/24 03:21 Pulse Ox 93 L 01/31/24 07:49 FiO2 Intake & Output 01/30/24 01/31/24 01/31/24 18:59 06:59 18:59 Intake Total 1016 Output Total 440 300 Balance 576 -300 Weight 96 kg Intake: Oral 1016 Output: Chest Tube Drainage 140 Right Posterior Chest 140 Urine 300 300 Other: Voiding Method Toilet Toilet # Voids 1 # Bowel Movements 1 - Exam CONSTITUTIONAL: Appears comfortable, cooperative, no acute distress RESPIRATORY: Lungs sounds diminished bilaterally. Respirations even, nonlabored. Currently on room air with oxygen saturation 93%. Able to achieve 1250 mL on incentive spirometry. Strong cough. CARDIOVASCULAR: S1, S2 present. Regular rate and rhythm, sinus rhythm on telemetry. Palpable peripheral pulses bilaterally. No edema present. No calf pain or tenderness noted. SCDs present. GASTROINTESTINAL: Abdomen soft, nontender, nondistended. Active bowel sounds present 4 quadrants. Tolerating diet. Positive bowel movement 01/29 GENITOURINARY: Continues to void clear, yellow urine INTEGUMENTARY: Skin is warm and dry with evidence of good perfusion NEUROLOGIC: Cranial nerves II through XII intact MUSKULOSKELETAL: Able to move all extremities, strength equal bilaterally, gait normal PSYCHIATRIC: Alert and oriented to person place and time, appropriate affect, intact judgment and insight INVASIVE LINES AND TUBES: Right pleural chest tubes present to waterseal, singular air leak present - Allied health notes Allied health notes reviewed: nursing - Labs CBC & Chem 7: 01/29/24 10:34 01/29/24 10:34 - Imaging and Cardiology Chest x-ray: report reviewed, image reviewed Assessment and Plan Assessment: Lepidic adenocarcinoma right lower lobe, status post bronchoscopy, right robotic assisted thorascopic surgery with right lower lobectomy, mediastinal lymph node dissection, intercostal nerve block - 3 levels; final pathology consistent with invasive well to moderately differentiated pulmonary adenocarcinoma with acinar and lepidic growth patterns, T2a N0M0, stage Ib History of hypertension Hyperlipidemia Paroxysmal atrial fibrillation status post ablation on Xarelto for anticoagulation, currently sinus DVT Atrial septal defect Asthma Lifelong non-smoker Plan: Continue to maximize medical therapy, will continue to hold Xarelto until after chest tube is removed Encourage incentive spirometry use 10 times every hour while awake Will discontinue pleural chest tube, repeat chest x-ray in the morning, if stable will discharge to home tomorrow Increase activity as tolerated Pain control with current medication regimen, will discontinue narcotics after chest tube removed More recommendations to follow
--- NOTE | 2024-01-31 14:36 | P.PN ---
Subjective Progress Note Date: 01/31/24 This is a 83-year-old female patient underwent a robotic assisted thoracoscopic lung surgery and the patient underwent a right lower lobectomy along with mediastinal lymph node dissection. Surgery was done with minimal blood loss in the order of 25 cc. Patient is currently on the medical floor and the patient is currently on 2 L of oxygen by nasal cannula with a pulse ox of 99 to 100%. The postop chest x-ray shows a tiny 5 to 10% right apical pneumothorax. There is subcutaneous emphysema. Left lung is clear. Volume loss is seen on the right lung. Chest tube is in a good location. 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 The patient had a PET avid right lower lobe lesion that which I biopsied that turned out to be positive for adenocarcinoma. Previous medical history includes chronic A-fib, ASD, hyperlipidemia and history of seborrheic dermatitis and history of mitral valve prolapse. The patient had a 3.3 x 3 cm right lower lobe mass. She is a non- smoker. Her baseline FEV1 was in order of 1.82 L post bronchodilation. 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 On today's evaluation of 01/25/2024, I am seeing the patient for a follow-up. Patient is doing well. No specific complaints. The patient is post right lower lobe resection the patient is currently postop day #1. The patient also had mediastinal node dissection and intercostal nerve block, 3 levels. Sitting up in a chair. Ambulating. Right-sided chest tube in place with minimal amount of air leak and the volume has been in the order of 700 cc since surgery. Repeat chest x-ray from today shows diminution of the right apical pneumothorax which i s in order of 5%. There is another opacity measuring 1.7 cm another density in the right upper lobe area. This may be an atelectatic segment. Sodium levels at 133, BUN 25 with a creatinine of 0.5 and WBC count of 8.4 with a hemoglobin 12.3. The patient using incentive spirometer. The patient has a pulse ox of 94% on room air oxygen. On today's evaluation of 01/26/2024, the patient is being seen for a follow-up. The patient is postop day #2 following a right lower lobe resection. Right-erik ed chest tube in place and the patient continues to have some intermittent air leak. Repeat chest x-ray was done today and the patient has a right-sided chest tube, right sided small effusion, small curvilinear lucency projected in the right lung base could be related to some pneumoperitoneum. Nevertheless, the patient does not have any significant abdominal pain or tenderness. No nausea. No emesis. A trace right apical pneumothorax is also seen. The patient otherwise has no specific complaints. White cell count at 9.3 with a hemoglobin 12 and a platelet count of 228. BUN is 21 with a creatinine of 0.8 and sodium levels at 133. Remains on DuoNeb nebulized treatments [id number]. Using incentive spirometer on a regular basis. Tramadol for pain control in addition to Toradol. On today's evaluation of 01/27/2024, the patient is experiencing some pain along the right chest. Noted the patient is post right lower lobe resection. The patient is currently postop day #3. The chest tube evaluation showing some intermittent leaks and a chest x-ray from today is not showing any evidence of pneumothorax. Using incentive spirometer. Pulling approximately thousand on her incentive spirometer. The patient has produced approximately 450 cc of somewhat blood-tinged pleural fluid over the past 24 hours and approximate 200s over the past 8 hours. As such, the decision was to keep the chest tube in place. Blood work shows a BUN of 21 with a creatinine of 0.6. The WBC count is 7.6 with a hemoglobin of 11 and a platelet count of 195. Afebrile. Hemodynamically stable. Pain control is with tramadol 50 mg every 6 hours on a as needed basis the patient was also given Dilaudid 0.5 mg every 3 hours as needed in combination with Toradol. She remains on DuoNeb nebulized treatments [id number]. She is on room air oxygen. The patient is seen today January 28, 2024 in follow-up on the selective care unit. She is currently sitting up in a chair at the bedside. Awake and alert in no acute distress. Maintaining O2 saturations in the 90s on room air. Is postoperative day #4. Chest tube continues to reveal a positive leak. Chest x- ray reveals no significant pneumothorax. Trace right pleural effusion. Pathology is pending. White count 8.3. Hemoglobin 11.2. Platelets 224. Sodium 133. Potassium 4.7. Bicarb 28. BUN 19. Creatinine 0.59. He is continued on DuoNeb ventilations, Symbicort. Working well with the incentive spirometer. Patient was reevaluated today on 01/29/2024, patient is postoperative day #5, bronchoscopy, right robotic assisted thoracoscopic surgery with right lower lobectomy, mediastinal lymph node dissection and intercostal nerve block 3 level. Patient is sitting in bed, not in distress, pain seems to be under fairly good control. Denies any shortness of breath, continues to have chest tube in place, it is presently clamped, I believe thoracic surgery is planning repeat chest x-ray later this afternoon to decide on removal of the chest tube. Apparently there was no air leak. Chest x-ray showed no evidence of pneumot horax. CBC is relatively normal basic metabolic profile is normal The patient is seen today January 30, 2024 in follow-up on the selective care unit. Postoperative day #6. She is currently sitting up in a chair at the bedside. Awake and alert in no acute distress. She is maintaining good O2 saturations in the 90s on room air. Chest x-ray reveals right thoracotomy tube in place with a trace pneumothorax in the right apex. Trace right pleural effusion. Plan is for the chest tube to be clamped today and follow-up chest x- ray tomorrow. No new labs today. She remains on DuoNeb inhalations, Symbicort. Working well with the incentive spirometer. Heparin for DVT prophylaxis. The patient is seen today January 31, 2024 in follow-up on the selective care unit. Postoperative day #7. She is sitting up in a chair. Awake and alert in no acute distress. Maintaining good O2 saturations in the 90s on room air. Chest x-ray revealed trace pneumothorax with trace right pleural effusion. Her c hest tube was removed today. Follow-up chest x-ray planned for tomorrow morning. No worsening shortness of breath, cough or congestion. No fever or chills. Continues to work well with the incentive spirometer. Remains on DuoNeb inhalations, Symbicort. Heparin for DVT prophylaxis. Objective - Vital Signs Vital signs: Vital Signs Temp 97.9 F 01/31/24 08:00 Pulse 76 01/31/24 11:57 Resp 18 01/31/24 11:52 BP 134/62 04/18/24 11:52 Pulse Ox 91 L 01/31/24 11:52 FiO2 Intake & Output 01/30/24 01/31/24 01/31/24 18:59 06:59 18:59 Intake Total 1016 900 Output Total 440 300 670 Balance 576 -300 230 Weight 96 kg Intake: Oral 1016 900 Output: Chest Tube Drainage 140 120 Right Posterior Chest 140 120 Urine 300 300 550 Other: Voiding Method Toilet Toilet Toilet # Voids 1 1 # Bowel Movements 1 1 - Exam GENERAL EXAM: Alert, 83-year-old female, on room air, up in a chair, comfortable in no apparent distress. HEAD: Normocephalic. EYES: Normal reaction of pupils, equal size. NOSE: Clear with pink turbinates. THROAT: No erythema or exudates. NECK: No masses, no JVD. CHEST: No chest wall deformity. Right-sided chest tube removed, dressing dry and intact.. LUNGS: Equal air entry with few scattered rhonchi, crackles in the right lung base. CVS: S1 and S2 normal with no audible murmur, regular rhythm. ABDOMEN: No hepatosplenomegaly, normal bowel sounds, no guarding or rigidity. SPINE: No scoliosis or deformity SKIN: No rashes CENTRAL NERVOUS SYSTEM: No focal deficits, tone is normal in all 4 extremities. EXTREMITIES: There is no peripheral edema. No clubbing, no cyanosis. Peripheral pulses are intact. - Labs CBC & Chem 7: 01/29/24 10:34 01/29/24 10:34 Assessment and Plan Assessment: Pulmonary adenocarcinoma and the patient presented with a 3.3 x 3 cm right lower lobe mass had a preoperative lung biopsy showed lipidic adenocarcinoma the patient underwent a robotic assisted right lower lobe resection. The patient is currently postop day #7 Postthoracotomy, right-sided chest tube in place and there is diminution of the right-sided pneumothorax, very tiny air leak is present, with a small apical pn eumothorax. Chest tube removed today January 31, 2024 Right-sided chest wall pain, essentially postsurgical in nature Acute hypoxic respiratory failure, expected outcome of surgery and the patient is currently on room air oxygen Chronic atrial fibrillation maintained on Xarelto on outpatient basis Hypertension Hyperlipidemia History of bronchial asthma, the patient is a lifelong non-smoker Chronic back pain History of ASD Osteoarthritis Plan: The patient was seen and evaluated Chest x-ray, medications reviewed Continue bronchodilators Continue the incentive spirometer Increase activity as tolerated Chest tube removed today Follow-up chest x-ray in a.m. Probable discharge in a.m. We will continue to follow I have personally seen and examined the patient, performed the documentation and the assessment and plan as written. Number of minutes spent on the visit: 10.
[2024-01-31] MEDS: traMADol 50 MG TAB PO PRN (14:45)
[2024-01-31] MEDS: ACETAMINOPHEN TAB 500 MG TAB PO PRN (20:06)
[2024-02-01] MEDS: METOPROLOL TARTRATE 12.5 MG TAB PO SCH (08:00)
--- NOTE | 2024-02-01 08:44 | XR ---
EXAMINATION TYPE: XR chest 2V DATE OF EXAM: 02/01/2024 6:54 AM CLINICAL INDICATION:Female, 83 years old with history of post lobectomy; [facility] COMPARISON: Chest radiograph from one day prior. TECHNIQUE: XR chest 2V Frontal and lateral views of the chest. FINDINGS: Lungs/Pleura: Small right pleural effusion. Post surgical changes compatible with lobectomy. There is trace right pneumothorax present with visceral pleural line. There is no evidence of left pleural ef fusion, focal consolidation, or left pneumothorax. Pulmonary vascularity: Unremarkable. Heart/mediastinum: Cardiomediastinal silhouette is enlarged and stable. Musculoskeletal: No acute osseous pathology. Right thoracotomy tube has been removed. There may be trace pneumothorax on today's exam. IMPRESSION: 1. Right thoracotomy tube has been removed with trace pneumothorax. 2. Trace right pleural effusion.
--- NOTE | 2024-02-01 08:51 | P.PN ---
Subjective Progress Note Date: 02/01/24 Principal diagnosis: Lepidic adenocarcinoma right lower lobe. Previous medical history of hypertension, hyperlipidemia, paroxysmal atrial fibrillation status post ablation on Xarelto for anticoagulation, DVT, atrial septal defect, asthma, lifelong non-smoker POD #8 bronchoscopy, right robotic assisted thorascopic surgery with right lower lobectomy, mediastinal lymph node dissection, intercostal nerve block - 3 levels Prolonged air leak, unexpected but not uncommon after lung surgery The patient was seen and examined sitting up in recliner on the cardiac stepdown unit in no acute distress. States pain is better since removal of chest tube, still requiring oral narcotics. Denies shortness of breath. Remains on room air, able to achieve 1250 mL on her incentive spirometry. Chest x-ray reviewed. Patient has been ambulatory with walker in the hallway. Anticipates discharge to home today. No other new concerns. Objective - Vital Signs Vital signs: Vital Signs Temp 97.8 F 02/01/24 03:36 Pulse 59 L 02/01/24 03:36 Resp 18 02/01/24 03:36 BP 109/64 02/01/24 03:36 Pulse Ox 98 02/01/24 03:36 FiO2 Intake & Output 01/31/24 02/01/24 02/01/24 18:59 06:59 18:59 Intake Total 1140 Output Total 820 500 Balance 320 -500 Weight 95.8 kg Intake: Oral 1140 Output: Chest Tube Drainage 120 Right Posterior Chest 120 Urine 700 500 Other: Voiding Method Toilet Toilet # Voids 1 # Bowel Movements 1 - Exam CONSTITUTIONAL: Appears comfortable, cooperative, no acute distress RESPIRATORY: Lungs sounds diminished bilaterally. Respirations even, nonlabored. Currently on room air with oxygen saturation 98%. Able to achieve 1250 mL on incentive spirometry. Strong cough. CARDIOVASCULAR: S1, S2 present. Regular rate and rhythm, sinus rhythm on telemetry. Palpable peripheral pulses bilaterally. No edema present. No calf pain or tenderness noted. SCDs present. GASTROINTESTINAL: Abdomen soft, nontender, nondistended. Active bowel sounds present 4 quadrants. Tolerating diet. Positive bowel movement 01/29 GENITOURINARY: Continues to void clear, yellow urine INTEGUMENTARY: Skin is warm and dry with evidence of good perfusion NEUROLOGIC: Cranial nerves II through XII intact MUSKULOSKELETAL: Able to move all extremities, strength equal bilaterally, gait normal PSYCHIATRIC: Alert and oriented to person place and time, appropriate affect, intact judgment and insight - Allied health notes Allied health notes reviewed: nursing - Labs CBC & Chem 7: 01/29/24 10:34 01/29/24 10:34 - Imaging and Cardiology Chest x-ray: report reviewed, image reviewed Assessment and Plan Assessment: Lepidic adenocarcinoma right lower lobe, status post bronchoscopy, right robotic assisted thorascopic surgery with right lower lobectomy, mediastinal lymph node dissection, intercostal nerve block - 3 levels; final pathology consistent with 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
[2024-02-01] MEDS: lisinopriL 20 MG TAB PO SCH (09:01)
[2024-02-01 09:14] VITALS: TEMP 98
--- NOTE | 2024-02-01 11:26 | P.DS ---
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 Mckeon for primary care and Dr. Boothe for pulmonology. The patient reportedly had problems with her hip after a fall last summer, part of her workup was chest x-ray which revealed an infiltrate. Subsequently a PET/CT scan was performed which did not show FDG avidity in the mass/infiltrate at that time. Follow-up CT scan that showed persistent but enlarging mass in the right lower lobe. PET/CT was repeated demonstrating the mass to have slightly increased SUV. The patient was referred to Dr. Amaral from thoracic surgery. She was recommended to undergo right lower lobectomy. The usual perioperative course was discussed in detail with the patient and her family, all risks and benefits were explained, all questions were answered, and consent was obtained to proceed with surgery. The patient was scheduled for surgery at the earliest possible date after obtaining cardiac and pulmonary clearance. HOSPITAL COURSE: The patient was brought to the hospital on 01/24/24, taken to the preoperative area, prepared in the usual fashion, and subsequently taken to the operating room where Dr. Amaral performed a robotic assisted thoracoscopic right lower lobectomy. Upon completion of surgery the patient was extubated and taken to the recovery room for further monitoring. She was eventually admitted to 3 S. cardiac stepdown unit for further hemodynamic monitoring. She continued to have intermittent air leak which finally resolved on postop day #7. Chest tube was discontinued, follow-up chest x-ray was stable. Her oxygen was titrated down, she was tolerating oral diet, her pain was controlled, and she was ready to be discharged to home on postoperative day #8. She received written and verbal instruction regarding her medications, activity restrictions, signs and symptoms requiring physician notification, and follow-up appointments. Patient Condition at Discharge: Stable Plan - Discharge Summary Discharge Rx Participant: No New Discharge Prescriptions: New Sennosides-Docusate Sodium [Senokot-S] 1 each PO BID PRN tab PRN Reason: Constipation Acetaminophen Tab [Tylenol] 1,000 mg PO Q6HR PRN tab PRN Reason: Fever And/ Or Pain traMADol HCl [Ultram] 50 mg PO Q6H PRN #28 tab PRN Reason: Breakthrough Pain Continue ALPRAZolam [Xanax] 0.25 mg PO BID Sotalol [Betapace] 80 mg PO QAM Albuterol Sulfate [Proair Digihaler] 1 puff INHALATION TID Budesonide-Formot 160-4.5 Mcg [Symbicort 160-4.5 Mcg Inhaler] 2 puff INHALATION BID Latanoprost [Latanoprost 0.005%] 1 drop LEFT EYE HS lisinopriL [Zestril] 20 mg PO QAM Sotalol [Betapace] 40 mg PO HS Metoprolol Tartrate [Lopressor] 12.5 mg PO BID Rivaroxaban [Xarelto] 1 tab PO HS Discharge Medication List ALPRAZolam [Xanax] 0.25 mg PO BID 04/24/14 [History] Metoprolol Tartrate [Lopressor] 12.5 mg PO BID 11/05/23 [History] Rivaroxaban [Xarelto] 1 tab PO HS 11/05/23 [History] Sotalol [Betapace] 40 mg PO HS 11/05/23 [History] Sotalol [Betapace] 80 mg PO QAM 11/05/23 [History] lisinopriL [Zestril] 20 mg PO QAM 11/05/23 [History] Albuterol Sulfate [Proair Digihaler] 1 puff INHALATION TID 01/21/24 [History] Budesonide-Formot 160-4.5 Mcg [Symbicort 160-4.5 Mcg Inhaler] 2 puff INHALATION BID 01/21/24 [History] Latanoprost [Latanoprost 0.005%] 1 drop LEFT EYE HS 01/21/24 [History] Acetaminophen Tab [Tylenol] 1,000 mg PO Q6HR PRN tab 02/01/24 [Rx] Sennosides-Docusate Sodium [Senokot-S] 1 each PO BID PRN tab 02/01/24 [Rx] traMADol HCl [Ultram] 50 mg PO Q6H PRN #28 tab 02/01/24 [Rx] Follow up Appointment(s)/Referral(s): Walker Mckeon MD [Primary Care Provider] - As Needed Yuan Boothe DO [Doctor of Osteopathic Medicine] - 02/13/24 9:45 am Nirav Amaral MD [STAFF PHYSICIAN] - 02/07/24 11:45 am Activity/Diet/Wound Care/Special Instructions: DISCHARGE INSTRUCTIONS: 1. No driving for 2 weeks, or until physician gives their ok. 2. No lifting, pushing, or pulling more than 10 pounds for 2 weeks. The physician will advise of any restriction changes. 3. Continue pain control per as needed orders. Alternate acetaminophen (Tylenol) and ibuprofen (Motrin/Advil) for pain. 4. Continue with incentive spirometry and splinting until otherwise directed by the physician. 5. Leave chest tube dressing for 48 hours. After that, remove all dressings and shower daily. 6. Routine incision care. No powders, lotions, ointments on incisions. 7. Please call surgeon/[employer]GER for temp greater than 101 F or purulent drainage from incisions. Discharge Disposition: HOME SELF-CARE
[2024-02-01 12:11] VITALS: BP 136/72; PULSE 67; RESP 17
--- NOTE | 2024-02-01 15:22 | P.PN ---
Subjective Progress Note Date: 02/01/24 This is a 83-year-old female patient underwent a robotic assisted thoracoscopic lung surgery and the patient underwent a right lower lobectomy along with mediastinal lymph node dissection. Surgery was done with minimal blood loss in the order of 25 cc. Patient is currently on the medical floor and the patient is currently on 2 L of oxygen by nasal cannula with a pulse ox of 99 to 100%. The postop chest x-ray shows a tiny 5 to 10% right apical pneumothorax. There is subcutaneous emphysema. Left lung is clear. Volume loss is seen on the right lung. Chest tube is in a good location. 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 The patient had a PET avid right lower lobe lesion that which I biopsied that turned out to be positive for adenocarcinoma. Previous medical history includes chronic A-fib, ASD, hyperlipidemia and history of seborrheic dermatitis and history of mitral valve prolapse. The patient had a 3.3 x 3 cm right lower lobe mass. She is a non- smoker. Her baseline FEV1 was in order of 1.82 L post bronchodilation. 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 On today's evaluation of 01/25/2024, I am seeing the patient for a follow-up. Patient is doing well. No specific complaints. The patient is post right lower lobe resection the patient is currently postop day #1. The patient also had mediastinal node dissection and intercostal nerve block, 3 levels. Sitting up in a chair. Ambulating. Right-sided chest tube in place with minimal amount of air leak and the volume has been in the order of 700 cc since surgery. Repeat chest x-ray from today shows diminution of the right apical pneumothorax which i s in order of 5%. There is another opacity measuring 1.7 cm another density in the right upper lobe area. This may be an atelectatic segment. Sodium levels at 133, BUN 25 with a creatinine of 0.5 and WBC count of 8.4 with a hemoglobin 12.3. The patient using incentive spirometer. The patient has a pulse ox of 94% on room air oxygen. On today's evaluation of 01/26/2024, the patient is being seen for a follow-up. The patient is postop day #2 following a right lower lobe resection. Right-erik ed chest tube in place and the patient continues to have some intermittent air leak. Repeat chest x-ray was done today and the patient has a right-sided chest tube, right sided small effusion, small curvilinear lucency projected in the right lung base could be related to some pneumoperitoneum. Nevertheless, the patient does not have any significant abdominal pain or tenderness. No nausea. No emesis. A trace right apical pneumothorax is also seen. The patient otherwise has no specific complaints. White cell count at 9.3 with a hemoglobin 12 and a platelet count of 228. BUN is 21 with a creatinine of 0.8 and sodium levels at 133. Remains on DuoNeb nebulized treatments [id number]. Using incentive spirometer on a regular basis. Tramadol for pain control in addition to Toradol. On today's evaluation of 01/27/2024, the patient is experiencing some pain along the right chest. Noted the patient is post right lower lobe resection. The patient is currently postop day #3. The chest tube evaluation showing some intermittent leaks and a chest x-ray from today is not showing any evidence of pneumothorax. Using incentive spirometer. Pulling approximately thousand on her incentive spirometer. The patient has produced approximately 450 cc of somewhat blood-tinged pleural fluid over the past 24 hours and approximate 200s over the past 8 hours. As such, the decision was to keep the chest tube in place. Blood work shows a BUN of 21 with a creatinine of 0.6. The WBC count is 7.6 with a hemoglobin of 11 and a platelet count of 195. Afebrile. Hemodynamically stable. Pain control is with tramadol 50 mg every 6 hours on a as needed basis the patient was also given Dilaudid 0.5 mg every 3 hours as needed in combination with Toradol. She remains on DuoNeb nebulized treatments [id number]. She is on room air oxygen. The patient is seen today January 28, 2024 in follow-up on the selective care unit. She is currently sitting up in a chair at the bedside. Awake and alert in no acute distress. Maintaining O2 saturations in the 90s on room air. Is postoperative day #4. Chest tube continues to reveal a positive leak. Chest x- ray reveals no significant pneumothorax. Trace right pleural effusion. Pathology is pending. White count 8.3. Hemoglobin 11.2. Platelets 224. Sodium 133. Potassium 4.7. Bicarb 28. BUN 19. Creatinine 0.59. He is continued on DuoNeb ventilations, Symbicort. Working well with the incentive spirometer. Patient was reevaluated today on 01/29/2024, patient is postoperative day #5, bronchoscopy, right robotic assisted thoracoscopic surgery with right lower lobectomy, mediastinal lymph node dissection and intercostal nerve block 3 level. Patient is sitting in bed, not in distress, pain seems to be under fairly good control. Denies any shortness of breath, continues to have chest tube in place, it is presently clamped, I believe thoracic surgery is planning repeat chest x-ray later this afternoon to decide on removal of the chest tube. Apparently there was no air leak. Chest x-ray showed no evidence of pneumot horax. CBC is relatively normal basic metabolic profile is normal The patient is seen today January 30, 2024 in follow-up on the selective care unit. Postoperative day #6. She is currently sitting up in a chair at the bedside. Awake and alert in no acute distress. She is maintaining good O2 saturations in the 90s on room air. Chest x-ray reveals right thoracotomy tube in place with a trace pneumothorax in the right apex. Trace right pleural effusion. Plan is for the chest tube to be clamped today and follow-up chest x- ray tomorrow. No new labs today. She remains on DuoNeb inhalations, Symbicort. Working well with the incentive spirometer. Heparin for DVT prophylaxis. The patient is seen today January 31, 2024 in follow-up on the selective care unit. Postoperative day #7. She is sitting up in a chair. Awake and alert in no acute distress. Maintaining good O2 saturations in the 90s on room air. Chest x-ray revealed trace pneumothorax with trace right pleural effusion. Her c hest tube was removed today. Follow-up chest x-ray planned for tomorrow morning. No worsening shortness of breath, cough or congestion. No fever or chills. Continues to work well with the incentive spirometer. Remains on DuoNeb inhalations, Symbicort. Heparin for DVT prophylaxis. The patient is seen today February 01, 2024 in follow-up on the selective care unit. Postoperative day #8. She remains awake and alert in no acute distress. Maintaining good O2 saturation in the 90s on room air. Currently sitting up in a chair at the bedside. Denies any worsening shortness of breath, cough or congestion. Her pain from her surgical site is well-controlled. She continues to work well with the incentive spirometer. She is continued on bronchodilators. Heparin for DVT prophylaxis. Objective - Vital Signs Vital signs: Vital Signs Temp 98 F 02/01/24 08:00 Pulse 67 02/01/24 11:33 Resp 17 02/01/24 11:33 BP 136/72 02/01/24 11:33 Pulse Ox 97 02/01/24 11:33 FiO2 Intake & Output 01/31/24 02/01/24 02/01/24 18:59 06:59 18:59 Intake Total 1140 240 Output Total 820 500 150 Balance 320 -500 90 Weight 95.8 kg Intake: Oral 1140 240 Output: Chest Tube Drainage 120 Right Posterior Chest 120 Urine 700 500 150 Other: Voiding Method Toilet Toilet Toilet # Voids 1 1 # Bowel Movements 1 - Exam GENERAL EXAM: Alert, very pleasant 83-year-old female, on room air, comfortable in no apparent distress. HEAD: Normocephalic. EYES: Normal reaction of pupils, equal size. NOSE: Clear with pink turbinates. THROAT: No erythema or exudates. NECK: No masses, no JVD. CHEST: No chest wall deformity. Right-sided chest tube removed, dressing dry and intact.. LUNGS: Equal air entry with few scattered rhonchi, crackles in the right lung base. CVS: S1 and S2 normal with no audible murmur, regular rhythm. ABDOMEN: No hepatosplenomegaly, normal bowel sounds, no guarding or rigidity. SPINE: No scoliosis or deformity SKIN: No rashes CENTRAL NERVOUS SYSTEM: No focal deficits, tone is normal in all 4 extremities. EXTREMITIES: There is no peripheral edema. No clubbing, no cyanosis. Peripheral pulses are intact. - Labs CBC & Chem 7: 01/29/24 10:34 01/29/24 10:34 Assessment and Plan Assessment: Pulmonary adenocarcinoma and the patient presented with a 3.3 x 3 cm right lower lobe mass had a preoperative lung biopsy showed lipidic adenocarcinoma the patient underwent a robotic assisted right lower lobe resection. Postthoracotomy, right-sided chest tube in place and there is diminution of the right-sided pneumothorax, very tiny air leak is present, with a small apical pneumothorax. Chest tube removed January 31, 2024 Right-sided chest wall pain, essentially postsurgical in nature Acute hypoxic respiratory failure, expected outcome of surgery and the patient is currently on room air oxygen Chronic atrial fibrillation maintained on Xarelto on outpatient basis Hypertension Hyperlipidemia History of bronchial asthma, the patient is a lifelong non-smoker Chronic back pain History of ASD Osteoarthritis Plan: The patient was seen and evaluated Chest x-ray, medications reviewed Continue the incentive spirometer Increase her activity as tolerated Cleared for discharge from the pulmonary standpoint Follow-up in our office in 1 week I have personally seen and examined the patient, performed the documentation and the assessment and plan as written. Number of minutes spent on the visit: 10.
== END 2024-02-01 14:06 | disposition home or self-care (01) | DRG 163 ==
LOC: 2ORMAIN 05:37 → 3SCARD 10:41
PROVIDERS: ADMIT Thoracic Surgery (Cardiothoracic Vascular Surgery); ATTEND Thoracic Surgery (Cardiothoracic Vascular Surgery)
PROC: 07B70ZX Excision of Thorax Lymphatic, Open Approach, Diagnostic (ICD-10-PCS; 2024-01-24)
PROC: 3E0T3BZ Introduction of Anesthetic Agent into Peripheral Nerves and Plexi, Percutaneous Approach (ICD-10-PCS; 2024-01-24)
PROC: 8E0W4CZ Robotic Assisted Procedure of Trunk Region, Percutaneous Endoscopic Approach (ICD-10-PCS; 2024-01-24)
PROC: 0W9930Z Drainage of Right Pleural Cavity with Drainage Device, Percutaneous Approach (ICD-10-PCS; 2024-01-24)
PROC: 0BTF0ZZ Resection of Right Lower Lung Lobe, Open Approach (ICD-10-PCS; principal; 2024-01-24 07:30)
DX: C34.31 Malignant neoplasm of lower lobe, right bronchus or lung (principal); J96.01 Acute respiratory failure with hypoxia; J93.82 Other air leak; Q21.10 Atrial septal defect, unspecified; J43.8 Other emphysema; E78.5 Hyperlipidemia, unspecified; G89.29 Other chronic pain; I10 Essential (primary) hypertension; I34.1 Nonrheumatic mitral (valve) prolapse; L21.9 Seborrheic dermatitis, unspecified; M19.90 Unspecified osteoarthritis, unspecified site; J45.20 Mild intermittent asthma, uncomplicated; I48.0 Paroxysmal atrial fibrillation; Z79.01 Long term (current) use of anticoagulants; Z79.51 Long term (current) use of inhaled steroids; Z85.118 Personal history of other malignant neoplasm of bronchus and lung; Z86.718 Personal history of other venous thrombosis and embolism; Z90.710 Acquired absence of both cervix and uterus; Z90.49 Acquired absence of other specified parts of digestive tract; Z88.2 Allergy status to sulfonamides; M54.9 Dorsalgia, unspecified; Z98.42 Cataract extraction status, left eye; Z98.41 Cataract extraction status, right eye; Z96.653 Presence of artificial knee joint, bilateral; G62.9 Polyneuropathy, unspecified
CPT/HCPCS: 64999; 71045; 71046; 80048; 85025; 85027; 86850; 86900; 86901; 86920; 88305; 88309; 94640; 94760

== ENCOUNTER 2024-02-01 23:47 | Observation (INO) | payer MEDICARE, BC ==
--- NOTE | 2024-02-02 00:05 | ED ---
Abdominal Pain HPI - General Stated Complaint: Abd pain Time Seen by Provider: 02/01/24 23:48 Source: RN notes reviewed, old records reviewed - History of Present Illness Initial Comments: This is a 83-year-old female to ER with severe abdominal pain known underlying history of significant cancer. Positive nausea positive vomiting positive weakness with severe pain MD Complaint: abdominal pain -: days(s) Location: diffuse, epigastric, suprapubic Radiation: epigastric, suprapubic Migration to: suprapubic Severity: severe Quality: cramping, stabbing, aching Consistency: constant Improves With: nothing Associated Symptoms: nausea - Related Data Home Medications Medication Instructions Recorded Confirmed ALPRAZolam [Xanax] 0.25 mg PO BID 04/24/14 01/24/24 Metoprolol Tartrate [Lopressor] 12.5 mg PO BID 11/05/23 01/24/24 Rivaroxaban [Xarelto] 1 tab PO HS 11/05/23 01/24/24 Sotalol [Betapace] 40 mg PO HS 11/05/23 01/24/24 Sotalol [Betapace] 80 mg PO QAM 11/05/23 01/24/24 lisinopriL [Zestril] 20 mg PO QAM 11/05/23 01/24/24 Albuterol Sulfate [Proair 1 puff INHALATION TID 01/21/24 01/24/24 Digihaler] Budesonide-Formot 160-4.5 Mcg 2 puff INHALATION BID 01/21/24 01/24/24 [Symbicort 160-4.5 Mcg Inhaler] Latanoprost [Latanoprost 0.005%] 1 drop LEFT EYE HS 01/21/24 01/24/24 Previous Rx's Medication Instructions Recorded Acetaminophen Tab [Tylenol] 1,000 mg PO Q6HR PRN tab 02/01/24 Sennosides-Docusate Sodium 1 each PO BID PRN tab 02/01/24 [Senokot-S] traMADol HCl [Ultram] 50 mg PO Q6H PRN #28 tab 02/01/24 Allergies Allergy/AdvReac Type Severity Reaction Status Date / Time Sulfa (Sulfonamide Allergy Rash/Hives Verified 02/02/24 00:08 Antibiotics) Review of Systems ROS Statement: Those systems with pertinent positive or pertinent negative responses have been documented in the HPI. ROS Other: All systems not noted in ROS Statement are negative. Past Medical History Past Medical History: Atrial Fibrillation, Cancer, Deep Vein Thrombosis (DVT), Eye Disorder, GERD/Reflux, Hyperlipidemia, Hypertension, Osteoarthritis (OA) Additional Past Medical History / Comment(s): GERD resolved. Varicose veins. Heart murmur, palpitations, born with atrial septal defect. Back pain, numbness/tingling in legs and feet, neuropathy - feet. Occasional incontinence of urine, pessary in place. Occasional rash under breasts, no issue currently. History of Any Multi-Drug Resistant Organisms: None Reported Past Surgical History: Appendectomy, Cardiac Ablation, Cholecystectomy, Heart Catheterization, Hysterectomy, Joint Replacement, Orthopedic Surgery Additional Past Surgical History / Comment(s): Varicose veins stripped/surgery, heart catheterization X2, vaginal vault inversion using pessary, EP study/heart ablation 04/2009 and 06/2009, [facility], benign skin lesion removed from face, colonosocopy, bilateral knee replacments, 2nd toe right foot ingrown toe nail removed, eye stents for glaucoma, bilateral cataract surgery, left femur fracture - nichole placed December 2022. Past Anesthesia/Blood Transfusion Reactions: No Reported Reaction Additional Past Anesthesia/Blood Transfusion Reaction / Comment(s): Blood transfusion X3 with no reactions after femur surgery. 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 Smoking Status: Never smoker Past Alcohol Use History: None Reported Past Drug Use History: None Reported - Past Family History Mother Family Medical History: Cancer Additional Family Medical History / Comment(s): at age 62 from pancreatic cancer. Father Additional Family Medical History / Comment(s): Was healthy till MVA accident at age 81-closed head injruy but lived 1 day shy of age 90 General Exam General appearance: alert, in no apparent distress Head exam: Present: atraumatic, normocephalic, normal inspection Eye exam: Present: normal appearance, PERRL, EOMI. Absent: scleral icterus, co njunctival injection, periorbital swelling ENT exam: Present: normal exam, mucous membranes moist Neck exam: Present: normal inspection. Absent: tenderness, meningismus, lymphadenopathy Respiratory exam: Present: normal lung sounds bilaterally. Absent: respiratory distress, wheezes, rales, rhonchi, stridor Cardiovascular Exam: Present: regular rate, normal rhythm, normal heart sounds. Absent: systolic murmur, diastolic murmur, rubs, gallop, clicks GI/Abdominal exam: Present: soft, normal bowel sounds. Absent: distended, tenderness, guarding, rebound, rigid Extremities exam: Present: normal inspection, full ROM, normal capillary refill. Absent: tenderness, pedal edema, joint swelling, calf tenderness Back exam: Present: normal inspection Neurological exam: Present: alert, oriented X3, CN II-XII intact Psychiatric exam: Present: normal affect, normal mood Skin exam: Present: warm, dry, intact, normal color. Absent: rash Course Vital Signs 02/01/24 02/02/24 02/02/24 23:49 00:06 00:30 Temperature 98.5 F Pulse Rate 66 67 65 Respiratory 22 25 H 18 Rate Blood Pressure 184/88 184/88 O2 Sat by Pulse 99 98 98 Oximetry 02/02/24 02/02/24 02/02/24 01:00 01:30 02:30 Temperature Pulse Rate 63 65 76 Respiratory 18 15 19 Rate Blood Pressure 171/76 161/71 162/78 O2 Sat by Pulse 98 98 98 Oximetry - Reevaluation(s) Reevaluation #1: 02/02/24 00:04 Medical records reviewed Reevaluation #2: 02/02/24 00:04 Patient symptoms unchanged Reevaluation #3: 02/02/24 00:04 Patient informed of results questions answered Reevaluation #4: Was pt. sent in by a medical professional or institution (, PA, [employer], urgent care, hospital, or intermediate...) When possible be specific @ -no Did you speak to anyone other than the patient for history (EMS, parent, family, police, friend...)? What history was obtained from this source @ -no Did you review nursing and triage notes (agree or disagree)? Why? @ -agree Are old charts reviewed (outside hosp., previous admission, EMS record, old EKG, old radiological studies, urgent care reports/EKG's, intermediate records)? Report findings @ -yes Differential Diagnosis (chest pain, altered mental status, abdominal pain women, abdominal pain men, vaginal bleeding, weakness, fever, dyspnea, syncope, headache, dizziness, GI bleed, back pain, seizure, CVA, palpatations, mental health, musculoskeletal)? @ -prior EKG interpreted by me (3pts min.). @ -yes X-rays interpreted by me (1pt min.). @ -yes negative for acute disease CT interpreted by me (1pt min.). @ -no U/S interpreted by me (1pt. min.). @ -no What testing was considered but not performed or refused? (CT, X-rays, U/S, labs)? Why? @ -none What meds were considered but not given or refused? Why? @ -none Did you discuss the management of the patient with other professionals (professionals i.e. , PA, [employer], lab, RT, psych nurse, social services aide, machine marker, teacher, collection officer, therapeutic case manager)? Give summary @ -no Was smoking cessation discussed for >3mins.? @ -no Was critical care preformed (if so, how long)? @ -no Were there social determinants of health that impacted care today? How? (Homelessness, low income, unemployed, alcoholism, drug addiction, transportation, low edu. Level, literacy, decrease access to med. care, [facility], rehab)? @ -none Was there de-escalation of care discussed even if they declined (Discuss DNR or withdrawal of care, Hospice)? DNR status @ -no What co-morbidities impacted this encounter? (DM, HTN, Smoking, COPD, CAD, Cancer, CVA, ARF, Chemo, Hep., AIDS, mental health diagnosis, sleep apnea, morbid obesity)? @ -none Was patient admitted / discharged? Hospital course, mention meds given and route, prescriptions, significant lab abnormalities, going to OR and other pertinent info. @ - Undiagnosed new problem with uncertain prognosis? @ -no Drug Therapy requiring intensive monitoring for toxicity (Heparin, Nitro, Insulin, Cardizem)? @ -no Were any procedures done? @ -no Diagnosis/symptom? @ - Acute, or Chronic, or Acute on Chronic? @ -Acute Uncomplicated (without systemic symptoms) or Complicated (systemic symptoms)? @ -Complicated Side effects of treatment? @ -no Exacerbation, Progression, or Severe Exacerbation? @ -exacerbation Poses a threat to life or bodily function? How? (Chest pain, [place], [place], pneumonia, PE, COPD, DKA, ARF, appy, cholecystitis, CVA, Diverticulitis, Homicidal, Suicidal, threat to staff... and all critical care pts) @ -yes Reevaluation #5: Differential Abdominal Pain Women: Appendicitis, Cholecystitis, diverticulosis, ischemic bowel, pancreatitis, hepatitis, UTI, gastroenteritis, AAA, incarcerated hernia, bowel obstruction, constipation, inflammatory bowel, hepatitis, peptic ulcer disease, splenic infarction, perforated viscus, vulvitis, ovarian torsion, PID, kidney stone, placenta abruption, this is not meant to be an all-inclusive list Medical Decision Making - Medical Decision Making 83 female to the ER for evaluation in regards to severe abdominal pain with urinary retention, patient has Choi catheter placed with successful resolution of pain but having chronic pain issues especially she has been regarding to pain control from surgery. Patient be admitted for observation - Lab Data Result diagrams: 02/02/24 00:20 02/02/24 00:20 Lab Results 02/02/24 02/02/24 02/02/24 Range/Units 00:20 00:20 00:20 WBC 8.4 (3.8-10.6) k/uL RBC 3.63 L (3.80-5.40) m/uL Hgb 11.1 L (11.4-16.0) gm/dL Hct 33.5 L (34.0-46.0) % MCV 92.4 (80.0-100.0) fL MCH 30.7 (25.0-35.0) pg MCHC 33.2 (31.0-37.0) g/dL RDW 12.5 (11.5-15.5) % Plt Count 258 (150-450) k/uL MPV 7.8 Neutrophils % 74 % Lymphocytes % 13 % Monocytes % 8 % Eosinophils % 3 % Basophils % 1 % Neutrophils # 6.2 (1.3-7.7) k/uL Lymphocytes # 1.1 (1.0-4.8) k/uL Monocytes # 0.6 (0-1.0) k/uL Eosinophils # 0.2 (0-0.7) k/uL Basophils # 0.1 (0-0.2) k/uL PT 12.0 (10.0-12.5) sec INR 1.1 (<1.2) APTT 31.3 H (22.0-30.0) sec Sodium 131 L (137-145) mmol/L Potassium 4.9 (3.5-5.1) mmol/L Chloride 100 (98-107) mmol/L Carbon Dioxide 25 (22-30) mmol/L Anion Gap 6 mmol/L BUN 40 H (7-17) mg/dL Creatinine 0.77 (0.52-1.04) mg/dL Est GFR (CKD-EPI)AfAm 83 (>60 ml/min/1.73 sqM) Est GFR (CKD-EPI)NonAf 72 (>60 ml/min/1.73 sqM) Glucose 94 (74-99) mg/dL Plasma Lactic Acid Alexandr (0.7-2.0) mmol/L Calcium 8.9 (8.4-10.2) mg/dL Phosphorus 3.1 (2.5-4.5) mg/dL Magnesium 2.1 (1.6-2.3) mg/dL Total Bilirubin 0.8 (0.2-1.3) mg/dL AST 30 (14-36) U/L ALT 38 H (4-34) U/L Alkaline Phosphatase 115 (38-126) U/L Troponin I (0.000-0.034) ng/mL NT-Pro-B Natriuret Pep 147 pg/mL Total Protein 5.6 L (6.3-8.2) g/dL Albumin 3.2 L (3.5-5.0) g/dL Lipase 256 (23-300) U/L Urine Color Urine Appearance (Clear) Urine pH (5.0-8.0) Ur Specific [place] (1.001-1.035) Urine Protein (Negative) Urine Glucose (UA) (Negative) Urine Ketones (Negative) Urine Blood (Negative) Urine Nitrite (Negative) Urine Bilirubin (Negative) Urine Urobilinogen (<2.0) mg/dL Ur Leukocyte Esterase (Negative) Urine RBC (0-5) /hpf Ur Squamous Epith Cells (0-4) /hpf Ur Transition Epith Cell (0-1) /hpf Amorphous Sediment (None) /hpf Urine Bacteria (None) /hpf 02/02/24 02/02/24 02/02/24 Range/Units 00:20 00:20 01:15 WBC (3.8-10.6) k/uL RBC (3.80-5.40) m/uL Hgb (11.4-16.0) gm/dL Hct (34.0-46.0) % MCV (80.0-100.0) fL MCH (25.0-35.0) pg MCHC (31.0-37.0) g/dL RDW (11.5-15.5) % Plt Count (150-450) k/uL MPV Neutrophils % % Lymphocytes % % Monocytes % % Eosinophils % % Basophils % % Neutrophils # (1.3-7.7) k/uL Lymphocytes # (1.0-4.8) k/uL Monocytes # (0-1.0) k/uL Eosinophils # (0-0.7) k/uL Basophils # (0-0.2) k/uL PT (10.0-12.5) sec INR (<1.2) APTT (22.0-30.0) sec Sodium (137-145) mmol/L Potassium (3.5-5.1) mmol/L Chloride (98-107) mmol/L Carbon Dioxide (22-30) mmol/L Anion Gap mmol/L BUN (7-17) mg/dL Creatinine (0.52-1.04) mg/dL Est GFR (CKD-EPI)AfAm (>60 ml/min/1.73 sqM) Est GFR (CKD-EPI)NonAf (>60 ml/min/1.73 sqM) Glucose (74-99) mg/dL Plasma Lactic Acid Alexandr 1.1 (0.7-2.0) mmol/L Calcium (8.4-10.2) mg/dL Phosphorus (2.5-4.5) mg/dL Magnesium (1.6-2.3) mg/dL Total Bilirubin (0.2-1.3) mg/dL AST (14-36) U/L ALT (4-34) U/L Alkaline Phosphatase (38-126) U/L Troponin I <0.012 (0.000-0.034) ng/mL NT-Pro-B Natriuret Pep pg/mL Total Protein (6.3-8.2) g/dL Albumin (3.5-5.0) g/dL Lipase (23-300) U/L Urine Color Colorless Urine Appearance Clear (Clear) Urine pH 8.0 (5.0-8.0) Ur Specific [place] 1.006 (1.001-1.035) Urine Protein Negative (Negative) Urine Glucose (UA) Negative (Negative) Urine Ketones Negative (Negative) Urine Blood Negative (Negative) Urine Nitrite Negative (Negative) Urine Bilirubin Negative (Negative) Urine Urobilinogen <2.0 (<2.0) mg/dL Ur Leukocyte Esterase Trace H (Negative) Urine RBC <1 (0-5) /hpf Ur Squamous Epith Cells <1 (0-4) /hpf Ur Transition Epith Cell <1 (0-1) /hpf Amorphous Sediment Rare H (None) /hpf Urine Bacteria Rare H (None) /hpf - EKG Data -: EKG Interpreted by Me (EKG is sinus 65 TN 196 QRS 91 QTc 425) - Radiology Data Radiology results: report reviewed (CT abdomen pelvis positive for significant urinary retention), image reviewed Disposition Clinical Impression: Urinary retention, Abdominal pain, Postoperative pain Disposition: HOME SELF-CARE Condition: Fair Is patient prescribed a controlled substance at d/c from ED?: No Referrals: Walker Mckeon MD [Primary Care Provider] - 1-2 days Time of Disposition: 04:10
[2024-02-02] MEDS: HYDROmorphone 1 MG/ML 1 ML SYRINGE IVP STA ×2 (00:33→04:10)
[2024-02-02] MEDS: SODIUM CHLORIDE 0.9% 1,000 ML IV STA (00:33)
[2024-02-02] MEDS: ONDANSETRON 4 MG/2 ML VIAL IVP STA (00:34)
[2024-02-02] MEDS: MORPHINE SULFATE 4 MG/ML SYRINGE IV STA (00:46)
[2024-02-02 01:22] LABS: Basophils # (A) 0.1 k/uL (0-0.2); Basophils % (A) 1 %; Eosinophils # (A) 0.2 k/uL (0-0.7); Eosinophils % (A) 3 %; HCT 33.5 % (34.0-46.0); HGB 11.1 gm/dL (11.4-16.0); Lymphocytes # (A) 1.1 k/uL (1.0-4.8); Lymphocytes % (A) 13 %; MCH 30.7 pg (25.0-35.0); MCHC 33.2 g/dL (31.0-37.0); MCV 92.4 fL (80.0-100.0); Mean Platelet Volume 7.8; Monocytes # (A) 0.6 k/uL (0-1.0); Monocytes % (A) 8 %; Neutrophils # (A) 6.2 k/uL (1.3-7.7); Neutrophils % (A) 74 %; Platelet Count 258 k/uL (150-450); RBC 3.63 m/uL (3.80-5.40); RDW 12.5 % (11.5-15.5); WBC 8.4 k/uL (3.8-10.6)
[2024-02-02 01:34] LABS: ALT 38 U/L (4-34); AST 30 U/L (14-36); African American GFR (CKD) 83 (>60 ml/min/1.73 sqM); Albumin 3.2 g/dL (3.5-5.0); Alkaline Phosphatase 115 U/L (38-126); Anion Gap 6 mmol/L; Blood Urea Nitrogen 40 mg/dL (7-17); Calcium 8.9 mg/dL (8.4-10.2); Carbon Dioxide 25 mmol/L (22-30); Chloride 100 mmol/L (98-107); Glucose 94 mg/dL (74-99); Lipase 256 U/L (23-300); Magnesium 2.1 mg/dL (1.6-2.3); Non-African American GFR(CKD) 72 (>60 ml/min/1.73 sqM); Phosphorus 3.1 mg/dL (2.5-4.5); Potassium 4.9 mmol/L (3.5-5.1); Sodium 131 mmol/L (137-145); Total Bilirubin 0.8 mg/dL (0.2-1.3); Total Protein 5.6 g/dL (6.3-8.2)
[2024-02-02 01:42] LABS: NT-Pro-B-Type Natriuretic Pept 147 pg/mL
[2024-02-02 01:57] LABS: Amorphous Sediment,Urine Rare /hpf; Appearance,Urine Clear (Clear); Bacteria,Urine Rare /hpf; Bilirubin,Urine Negative (Negative); Blood,Urine Negative (Negative); Color,Urine Colorless; Glucose,Urine (UA) Negative (Negative); Ketones,Urine Negative (Negative); Leukocyte Esterase,Urine Trace (Negative); Nitrite,Urine Negative (Negative); Protein,Urine Negative (Negative); RBC,Urine <1 /hpf (0-5); Specific Gravity,Urine 1.006 (1.001-1.035); Squamous Epithelial Cell,Urine <1 /hpf (0-4); Transitional Epi Cells,Urine <1 /hpf (0-1); Urobilinogen,Urine <2.0 mg/dL (<2.0)
[2024-02-02 02:07] LABS: INR 1.1 (<1.2); Partial Thromboplastin Time 31.3 sec (22.0-30.0)
--- NOTE | 2024-02-02 02:41 | CT ---
EXAM: CT Abdomen and Pelvis With Intravenous Contrast CLINICAL HISTORY: CT Reason: pain TECHNIQUE: Axial computed tomography images of the abdomen and pelvis with intravenous contrast. CTDI is 43.2 mGy and DLP is 2032.3 mGy-cm. This CT exam was performed using one or more of the following dose reduction techniques: automated exposure control, adjustment of the mA and/or kV according to patient size, and/or use of iterative reconstruction technique. COMPARISON: Chest x-ray from January 29, 2024 FINDINGS: Lung bases: Unremarkable. No mass. No consolidation. Pleural space: Small, 15% right-sided pneumothorax with 3.5 cm of fluid in the lower right pleural space. There is a small amount of gas in the right retroperitoneum, likely related to recent pneumothorax and chest tube. No pneumoperitoneum is identified. ABDOMEN: Liver: Unremarkable. No mass. Gallbladder and bile ducts: Slight biliary duct prominence postcholecystectomy. No choledocholithiasis is identified. Pancreas: Unremarkable. No mass. No ductal dilation. Spleen: Unremarkable. No splenomegaly. Adrenals: Unremarkable. No mass. Kidneys and ureters: Delayed images show normal renal contrast excretion bilaterally. No hydronephrosis. Stomach and bowel: Unremarkable. No obstruction. No mucosal thickening. PELVIS: Appendix: No findings to suggest acute appendicitis. Bladder: The urinary bladder is borderline dilated measuring 15 cm craniocaudad. Reproductive: There is a pessary in the vagina. The uterus is absent. No free fluid in the pelvis. ABDOMEN and PELVIS: Intraperitoneal space: See above. Bones/joints: Metallic artifact from a left hip screw attached to the femur nichole. Mild to moderate degenerative changes throughout the spine. No acute fracture or subluxation. Soft tissues: Unremarkable. Vasculature: The abdominal aorta is mildly calcified but nondilated. There is no aneurysm. Lymph nodes: Unremarkable. No enlarged lymph nodes. IMPRESSION: 1. Small, 15% right-sided pneumothorax with 3.5 cm of fluid in the lower right pleural space. 2. There is a small amount of gas in the right retroperitoneum, likely related to recent pneumothorax and chest tube. No pneumoperitoneum is identified. 3. The urinary bladder is borderline dilated measuring 15 cm craniocaudad. If the patient is unable to void, consider urinary retention.
[2024-02-02] MEDS ORDERED: NALOXONE 0.4 MG/ML 1 ML VIAL IV PRN (04:14)
[2024-02-02] MEDS: SODIUM CHLORIDE 0.9% 1,000 ML IV SCH (04:51)
[2024-02-02] MEDS: ONDANSETRON 4 MG/2 ML VIAL IVP PRN (10:15)
[2024-02-02] MEDS: HYDROmorphone 1 MG/ML 1 ML SYRINGE IVP PRN (10:15)
--- NOTE | 2024-02-02 12:27 | P.GSCN ---
History of Present Illness Consult date: 02/02/24 Reason for Consult: Patient is known to our service, recent right robotic assisted thoracoscopic surgery with right lower lobectomy on January 24, 2024. Requesting physician: Piedad Cline History of present illness: This is an 83-year-old female patient who follows on an outpatient basis with Dr. Walker Matamoros for her primary care and with Dr. Boothe for her pulmonary care. 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 On January 24, 2024 she underwent a robotic assisted thoracoscopic surgery with right lower lobectomy, mediastinal lymph node dissection and intercostal nerve block 3 levels. Postoperatively she had an intermittent airleak which finally resolved on postoperative day #7 and her chest tube was subsequently discontinued. Her oxygen was titrated down and she was discharged home yesterday February 01, 2024 on postoperative day #8. She presented to the emergency department last evening with complaints of abdominal pain, nausea and vomiting. The patient reports that she does use a pessary device for assistance with urination and had taken it out preoperatively without medical instruction and subsequently placed it again yesterday when she was discharged home. The patient states that when she placed the pessary device she urinated a significant amount of urine and developed abdominal discomfort. She denies any fever, chills, headache, hemoptysis, hematemesis, chest pain, shortness of breath, melena, or diarrhea. Due to the patient's complaints of abdominal pain a Choi catheter was placed and she was admitted to the hospital for further evaluation and treatment recommendations. A twelve-lead EKG was completed in the emergency department which showed normal sinus rhythm and a heart rate of [address] scan of the abdomen and pelvis with intravenous contrast was completed which demonstrated a small 15% right-sided pneumothorax, a small amount of gas in the right retroperitoneum, no pneumoperitoneum was identified, and her urinary bladder borderline dilated measuring 15 cm craniocaudal. Due to the findings on the CT scan and the patient's presenting symptoms a consult was placed to urology for further evaluation and treatment recommendations. Dr. Nirav Amaral was consulted for further evaluation as the patient is known to our service. Review of Systems A 14 point review of systems was completed except as mentioned in the HPI. Past Medical History Past Medical History: Atrial Fibrillation, Cancer, Deep Vein Thrombosis (DVT), Eye Disorder, GERD/Reflux, Hyperlipidemia, Hypertension, Osteoarthritis (OA) Additional Past Medical History / Comment(s): GERD resolved. Varicose veins. Heart murmur, palpitations, born with atrial septal defect. Back pain, numbness/tingling in legs and feet, neuropathy - feet. Occasional incontinence of urine, pessary in place. Occasional rash under breasts, no issue currently. History of Any Multi-Drug Resistant Organisms: None Reported Past Surgical History: Appendectomy, Cardiac Ablation, Cholecystectomy, Heart Catheterization, Hysterectomy, Joint Replacement, Orthopedic Surgery Additional Past Surgical History / Comment(s): Varicose veins stripped/surgery, heart catheterization X2, vaginal vault inversion using pessary, EP study/heart ablation 04/2009 and 06/2009, TAYLER, benign skin lesion removed from face, colonosocopy, bilateral knee replacments, 2nd toe right foot ingrown toe nail removed, eye stents for glaucoma, bilateral cataract surgery, left femur fracture - nichole placed December 2022. Robotic assisted right lower lobectomy on January 24, 2024. Past Anesthesia/Blood Transfusion Reactions: No Reported Reaction Additional Past Anesthesia/Blood Transfusion Reaction / Comm: Blood transfusion X3 with no reactions after femur surgery. 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 Smoking Status: Never smoker Past Alcohol Use History: None Reported Past Drug Use History: None Reported - Past Family History Mother Family Medical History: Cancer Additional Family Medical History / Comment(s): at age 62 from pancreatic cancer. Father Additional Family Medical History / Comment(s): Was healthy till MVA accident at age 81-closed head injruy but lived 1 day shy of age 89 Medications and Allergies Home Medications Medication Instructions Recorded Confirmed Type ALPRAZolam [Xanax] 0.25 mg PO BID 04/24/14 02/02/24 History Rivaroxaban [Xarelto] 20 mg PO HS 11/05/23 02/02/24 History Sotalol [Betapace] 40 mg PO HS 11/05/23 02/02/24 History Sotalol [Betapace] 80 mg PO DAILY 11/05/23 02/02/24 History lisinopriL [Zestril] 20 mg PO DAILY 11/05/23 02/02/24 History Budesonide-Formot 160-4.5 Mcg 2 puff INHALATION RT-BID 01/21/24 02/02/24 History [Symbicort 160-4.5 Mcg Inhaler] Latanoprost [Latanoprost 0.005%] 1 drop LEFT EYE HS 01/21/24 02/02/24 History Acetaminophen Tab [Tylenol] 1,000 mg PO Q6HR PRN tab 02/01/24 02/02/24 Rx traMADol HCl [Ultram] 50 mg PO Q6H PRN #28 tab 02/01/24 02/02/24 Rx ALPRAZolam [Xanax] 0.25 mg PO DAILY PRN 02/02/24 02/02/24 History Albuterol Sulfate [Albuterol 1 puff INHALATION RT-TID 02/02/24 02/02/24 History Sulfate Hfa] Ammonium Lactate Lotion 1 applic TOPICAL BID PRN 02/02/24 02/02/24 History [Lac-Hydrin 12% Lotion] Ketoconazole 2% Cream [Nizoral 2%] 1 applic TOPICAL BID PRN 02/02/24 02/02/24 History Metoprolol Tartrate [Lopressor] 12.5 mg PO BID 02/02/24 02/02/24 History Sennosides-Docusate Sodium 1 tab PO BID PRN 02/02/24 02/02/24 History [Senokot-S] Allergies Allergy/AdvReac Type Severity Reaction Status Date / Time Sulfa (Sulfonamide Allergy Rash/Hives Verified 02/02/24 13:00 Antibiotics) Surgical - Exam Vital Signs Temp Pulse Resp BP Pulse Ox 98.5 F 66 22 184/88 99 02/01/24 23:49 02/01/24 23:49 02/01/24 23:49 02/01/24 23:49 02/01/24 23:49 - General well developed, well nourished, no distress, moderate pain (To her abdomen), chronically ill, obese - Eyes PERRL, normal ocular movement, no pale, no icteric - ENT normal pinna, normal nares, normal mucosa, decreased hearing (Hearing aids) - Neck Neck is supple, no lymphadenopathy. no masses, no bruits, trachea midline, no venous distension - Respiratory Lung sounds with few scattered expiratory wheezes, diminished to her bilateral bases right greater than left. Respirations are symmetrical and nonlabored. No crackles or rhonchi. - Cardiovascular Regular rhythm and rate. S1 and S2 present, negative for S3 or gallop. Soft systolic murmur. - Abdomen Abdomen is soft, nontender and nondistended. Active bowel sounds present all 4 abdominal quadrants. No guarding or rigidity. - Genitourinary Choi catheter in place with clear yellow urine. - Rectum Deferred - Integumentary Skin is warm and dry. No clubbing or cyanosis is present. Right chest thoracic incisions clean, dry and approximated. no rash - Neurologic No focal deficits. normal coordination, normal sensation - Musculoskeletal Moves all 4 extremities with equal strength bilateral. normal gait - Psychiatric oriented to time, oriented to person, oriented to place, speech is normal, memory intact Results - Labs 02/03/24 07:08 02/03/24 07:08 Abnormal Lab Results - Last 24 Hours (Table) 02/02/24 02/02/24 02/02/24 Range/Units 00:20 00:20 00:20 RBC 3.63 L (3.80-5.40) m/uL Hgb 11.1 L (11.4-16.0) gm/dL Hct 33.5 L (34.0-46.0) % APTT 31.3 H (22.0-30.0) sec Sodium 131 L (137-145) mmol/L BUN 40 H (7-17) mg/dL ALT 38 H (4-34) U/L Total Protein 5.6 L (6.3-8.2) g/dL Albumin 3.2 L (3.5-5.0) g/dL Ur Leukocyte Esterase (Negative) Amorphous Sediment (None) /hpf Urine Bacteria (None) /hpf 02/02/24 Range/Units 01:15 RBC (3.80-5.40) m/uL Hgb (11.4-16.0) gm/dL Hct (34.0-46.0) % APTT (22.0-30.0) sec Sodium (137-145) mmol/L BUN (7-17) mg/dL ALT (4-34) U/L Total Protein (6.3-8.2) g/dL Albumin (3.5-5.0) g/dL Ur Leukocyte Esterase Trace H (Negative) Amorphous Sediment Rare H (None) /hpf Urine Bacteria Rare H (None) /hpf Diabetes panel 02/02/24 Range/Units 00:20 Sodium 131 L (137-145) mmol/L Potassium 4.9 (3.5-5.1) mmol/L Chloride 100 (98-107) mmol/L Carbon Dioxide 25 (22-30) mmol/L BUN 40 H (7-17) mg/dL Creatinine 0.77 (0.52-1.04) mg/dL Glucose 94 (74-99) mg/dL Calcium 8.9 (8.4-10.2) mg/dL AST 30 (14-36) U/L ALT 38 H (4-34) U/L Alkaline Phosphatase 115 (38-126) U/L Total Protein 5.6 L (6.3-8.2) g/dL Albumin 3.2 L (3.5-5.0) g/dL Calcium panel 02/02/24 Range/Units 00:20 Calcium 8.9 (8.4-10.2) mg/dL Phosphorus 3.1 (2.5-4.5) mg/dL Albumin 3.2 L (3.5-5.0) g/dL Pituitary panel 02/02/24 Range/Units 00:20 Sodium 131 L (137-145) mmol/L Potassium 4.9 (3.5-5.1) mmol/L Chloride 100 (98-107) mmol/L Carbon Dioxide 25 (22-30) mmol/L BUN 40 H (7-17) mg/dL Creatinine 0.77 (0.52-1.04) mg/dL Glucose 94 (74-99) mg/dL Calcium 8.9 (8.4-10.2) mg/dL Adrenal panel 02/02/24 Range/Units 00:20 Sodium 131 L (137-145) mmol/L Potassium 4.9 (3.5-5.1) mmol/L Chloride 100 (98-107) mmol/L Carbon Dioxide 25 (22-30) mmol/L BUN 40 H (7-17) mg/dL Creatinine 0.77 (0.52-1.04) mg/dL Glucose 94 (74-99) mg/dL Calcium 8.9 (8.4-10.2) mg/dL Total Bilirubin 0.8 (0.2-1.3) mg/dL AST 30 (14-36) U/L ALT 38 H (4-34) U/L Alkaline Phosphatase 115 (38-126) U/L Total Protein 5.6 L (6.3-8.2) g/dL Albumin 3.2 L (3.5-5.0) g/dL - Imaging CT scan - abdomen: report reviewed, image reviewed (CT scan reviewed by Dr. 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 Her chart and diagnostics were reviewed. Her case was discussed in detail with Dr. Amaral from cardiothoracic surgery. Urology consult pending. Patient is complaining of constipation, Dulcolax suppository as needed ordered. Medical management and other comorbidities per primary care service. Limit use of narcotics due to constipation. Increase activity as tolerated. Encourage use of incentive spirometry 10 times every hour while awake. Per the cardiothoracic surgery standpoint the patient can be discharged home when okay with other consultants. Thank you for this consult and we look forward to working with you in the care of this patient. I have personally seen and examined the patient, performed the documentation and the assessment and plan as written. Number of minutes spent on the visit: 30. TOVA Aaron Attending Addendum: Pt seen and evaluated with RETAIL HELPER above. Agree with his assessment and plan. I spent 35 minutes reviewing the data and discussing the pl an of care with the patient and team. Time with Patient: Greater than 30
[2024-02-02] MEDS: polyethylene glycoL 3350 17 GM POWD.PACK PO SCH (13:28)
[2024-02-02] MEDS: DOCUSATE 100 MG CAP PO SCH (13:28)
[2024-02-02] MEDS: ACETAMINOPHEN TAB 500 MG TAB PO PRN (13:28)
[2024-02-02] MEDS ORDERED: ACETAMINOPHEN TAB 500 MG TAB PO PRN (13:46)
--- NOTE | 2024-02-02 13:50 | P.HPIM ---
History of Present Illness H&P Date: 02/02/24 History of present illness; patient is 83-year-old lady with past medical histor y significant for adenocarcinoma of the right lung status post right lower lobe lobectomy along with mediastinal lymph node dissection, chronic A. fib, hyperlipidemia, seborrheic dermatitis, history of mitral valve prolapse who presented to the ER for abdominal pain.patient was recently admitted in the hospital from 01/23 to 01/31after undergoing robotic-assisted right lower lobe resection. patient states that ever since her discharge she has been having pain at the site of surgery. Patient also complaining of abdominal pain.denies any nausea or vomiting. Complaining of constipation. No complete of blood in the stools. Patient was complaining of urinary retention as well. There was no com plain of fever or chills. Denied any increased frequency or burning while urination. Because off these symptoms, patient came to ER Initial lab work done in the ER showed WBC 8.4, hemoglobin 11.1, platelet count 258, sodium 131), BUN 40, creatinine 0.77, AST 20, AST 38, proBNP 147, lipase 256, UA negative for infection CT of abdomen pelvis done showed small 15% right-sided pneumothorax with 3.5 cm off fluid in the lower right pleural space. It is also a small amount of gas in the right retroperitoneum. Urinary bladder is borderline dilated measuring 15 cm Patient admitted to internal medicine service REVIEW OF SYSTEMS: CONSTITUTIONAL: No fever, no malaise, no fatigue. HEENT: No recent visual problems or hearing problems. Denied any sore throat. CARDIOVASCULAR: No chest pain, orthopnea, PND, no palpitations, no syncope. PULMONARY: No shortness of breath, no cough, no hemoptysis. GASTROINTESTINAL: as mentioned above NEUROLOGICAL: No headaches, no weakness, no numbness. HEMATOLOGICAL: Denies any bleeding or petechiae. GENITOURINARY:as mentioned in HPI MUSCULOSKELETAL/RHEUMATOLOGICAL: Denies any joint pain, swelling, or any muscle pain. ENDOCRINE: Denies any polyuria or polydipsia. The rest of the 14-point review of systems is negative. PHYSICAL EXAMINATION: GENERAL: The patient is alert and oriented x3, not in any acute distress. Well developed, well nourished. HEENT: Pupils are round and equally reacting to light. EOMI. No scleral icterus. No conjunctival pallor. Normocephalic, atraumatic. No pharyngeal erythema. No thyromegaly. CARDIOVASCULAR: S1 and S2 present. No murmurs, rubs, or gallops. PULMONARY: Chest is clear to auscultation, no wheezing or crackles. right-sided chest wall incision seen ABDOMEN: Soft, nontender, nondistended, normoactive bowel sounds. No palpable organomegaly. MUSCULOSKELETAL: No joint swelling or deformity. EXTREMITIES: No cyanosis, clubbing, or pedal edema. NEUROLOGICAL: Gross neurological examination did not reveal any focal deficits. SKIN: No rashes. Assessment and plan abdominal pain Pulm adenocarcinoma status post robotic assisted right lower lobe resection. right apical pneumothorax. Chronic atrial fibrillation maintained on Xarelto Hypertension Hyperlipidemia History of bronchial asthma, the patient is a lifelong non-smoker Chronic back pain History of ASD Osteoarthritis Monitor vital signs Monitor CBC Monitor CMP Continue pain management Continue bladder management per protocol continue Symbicort and albuterol Continue lisinopril and Lopressor aggressive Bowel regimen Ordered chest x-ray urology consulted CT surgery consulted Labs and medication were reviewed.. Continue same treatment. Continue with symptomatic treatment. Resume home medication. Monitor labs and vitals. DVT and GI prophylaxis. Further recommendations as per clinical course of the patient Dictation was produced using [employer] dictation software. please excuse any grammatical, word or spelling errors. Past Medical History Past Medical History: Atrial Fibrillation, Cancer, Deep Vein Thrombosis (DVT), Eye Disorder, GERD/Reflux, Hyperlipidemia, Hypertension, Osteoarthritis (OA) Additional Past Medical History / Comment(s): GERD resolved. Varicose veins. Heart murmur, palpitations, born with atrial septal defect. Back pain, numbness/tingling in legs and feet, neuropathy - feet. Occasional incontinence of urine, pessary in place. Occasional rash under breasts, no issue currently. History of Any Multi-Drug Resistant Organisms: None Reported Past Surgical History: Appendectomy, Cardiac Ablation, Cholecystectomy, Heart Catheterization, Hysterectomy, Joint Replacement, Orthopedic Surgery Additional Past Surgical History / Comment(s): Varicose veins stripped/surgery, heart catheterization X2, vaginal vault inversion using pessary, EP study/heart ablation 04/2009 and 06/2009, TAYLER, benign skin lesion removed from face, colonosocopy, bilateral knee replacments, 2nd toe right foot ingrown toe nail removed, eye stents for glaucoma, bilateral cataract surgery, left femur fracture - nichole placed December 2022. Past Anesthesia/Blood Transfusion Reactions: No Reported Reaction Additional Past Anesthesia/Blood Transfusion Reaction / Comment(s): Blood transfusion X3 with no reactions after femur surgery. 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 Smoking Status: Never smoker Past Alcohol Use History: None Reported Past Drug Use History: None Reported - Past Family History Mother Family Medical History: Cancer Additional Family Medical History / Comment(s): at age 62 from pancreatic cancer. Father Additional Family Medical History / Comment(s): Was healthy till MVA accident at age 81-closed head injruy but lived 1 day shy of age 89 Medications and Allergies Home Medications Medication Instructions Recorded Confirmed Type ALPRAZolam [Xanax] 0.25 mg PO BID 04/24/14 02/02/24 History Rivaroxaban [Xarelto] 20 mg PO HS 11/05/23 02/02/24 History Sotalol [Betapace] 40 mg PO HS 11/05/23 02/02/24 History Sotalol [Betapace] 80 mg PO DAILY 11/05/23 02/02/24 History lisinopriL [Zestril] 20 mg PO DAILY 11/05/23 02/02/24 History Budesonide-Formot 160-4.5 Mcg 2 puff INHALATION RT-BID 01/21/24 02/02/24 History [Symbicort 160-4.5 Mcg Inhaler] Latanoprost [Latanoprost 0.005%] 1 drop LEFT EYE HS 01/21/24 02/02/24 History Acetaminophen Tab [Tylenol] 1,000 mg PO Q6HR PRN tab 02/01/24 02/02/24 Rx traMADol HCl [Ultram] 50 mg PO Q6H PRN #28 tab 02/01/24 02/02/24 Rx ALPRAZolam [Xanax] 0.25 mg PO DAILY PRN 02/02/24 02/02/24 History Albuterol Sulfate [Albuterol 1 puff INHALATION RT-TID 02/02/24 02/02/24 History Sulfate Hfa] Ammonium Lactate Lotion 1 applic TOPICAL BID PRN 02/02/24 02/02/24 History [Lac-Hydrin 12% Lotion] Ketoconazole 2% Cream [Nizoral 2%] 1 applic TOPICAL BID PRN 02/02/24 02/02/24 History Metoprolol Tartrate [Lopressor] 12.5 mg PO BID 02/02/24 02/02/24 History Sennosides-Docusate Sodium 1 tab PO BID PRN 02/02/24 02/02/24 History [Senokot-S] Allergies Allergy/AdvReac Type Severity Reaction Status Date / Time Sulfa (Sulfonamide Allergy Rash/Hives Verified 02/02/24 13:00 Antibiotics) Physical Exam Vitals: Vital Signs Temp Pulse Pulse Resp BP BP Pulse Ox 02/02/24 08:00 97.8 F 69 18 148/79 99 02/02/24 04:12 67 18 151/87 100 02/02/24 02:30 76 19 162/78 98 02/02/24 01:30 65 15 161/71 98 02/02/24 01:00 63 18 171/76 98 02/02/24 00:30 65 18 184/88 98 02/02/24 00:06 67 25 H 98 02/01/24 23:49 98.5 F 66 22 184/88 99 Intake and Output 02/01/24 02/02/24 02/02/24 22:59 06:59 14:59 Output Total 600 Balance -600 Output: Urine 600 Uretheral (Choi) 600 Other: Weight 95.708 kg Results CBC & Chem 7: 02/02/24 00:20 02/02/24 00:20 Labs: Abnormal Lab Results - Last 24 Hours (Table) 02/02/24 02/02/24 02/02/24 Range/Units 00:20 00:20 00:20 RBC 3.63 L (3.80-5.40) m/uL Hgb 11.1 L (11.4-16.0) gm/dL Hct 33.5 L (34.0-46.0) % APTT 31.3 H (22.0-30.0) sec Sodium 131 L (137-145) mmol/L BUN 40 H (7-17) mg/dL ALT 38 H (4-34) U/L Total Protein 5.6 L (6.3-8.2) g/dL Albumin 3.2 L (3.5-5.0) g/dL Ur Leukocyte Esterase (Negative) Amorphous Sediment (None) /hpf Urine Bacteria (None) /hpf 02/02/24 Range/Units 01:15 RBC (3.80-5.40) m/uL Hgb (11.4-16.0) gm/dL Hct (34.0-46.0) % APTT (22.0-30.0) sec Sodium (137-145) mmol/L BUN (7-17) mg/dL ALT (4-34) U/L Total Protein (6.3-8.2) g/dL Albumin (3.5-5.0) g/dL Ur Leukocyte Esterase Trace H (Negative) Amorphous Sediment Rare H (None) /hpf Urine Bacteria Rare H (None) /hpf
--- NOTE | 2024-02-02 14:32 | XR ---
EXAMINATION TYPE: XR chest 1V portable DATE OF EXAM: 02/02/2024 Comparison: 02/01/2024 Clinical History: 83-year-old female SOB , recent RLL Lobectomy Findings: Heart mildly enlarged. Some volume loss in the right mid thorax in keeping with patient's lobectomy. A trace right apical pneumothorax measuring 1 cm versus 8 mm, previously. Small right pleural effusio n slightly increased. Heart borderline enlarged. Hyperinflation suggests underlying COPD. Impression: 1. Surgery on the right with a trace right apical pneumothorax measuring 1 cm versus 8 mm, previously . 2. Slight increased trace right pleural effusion with adjacent atelectasis and/or consolidation.
[2024-02-02] MEDS: METOPROLOL TARTRATE 12.5 MG TAB PO SCH (20:22)
[2024-02-02] MEDS: SOTALOL 80 MG TAB PO SCH (20:22)
[2024-02-02] MEDS: ALPRAZolam 0.25 MG TAB PO SCH (20:23)
[2024-02-02] MEDS: RIVAROXABAN 20 MG TAB PO SCH (20:23)
[2024-02-02] MEDS: KETOROLAC 15 MG/ML 1 ML VIAL IVP PRN (21:03)
[2024-02-02] MEDS: LATANOPROST 0.005% OPHTH DROPS 2.5 ML BTL LEFT EYE SCH (21:10)
[2024-02-02] MEDS: SYMBICORT 160-4.5 MCG INHALER INHALATION SCH (21:12)
[2024-02-02] MEDS: ALBUTEROL HFA INHALER INHALATION SCH (21:12)
[2024-02-03] MEDS: traMADol 50 MG TAB PO PRN (00:21)
[2024-02-03] MEDS: ALPRAZolam 0.25 MG TAB PO PRN (02:36)
[2024-02-03] MEDS: bisacodyL 10 MG SUPP RECTAL PRN (03:39)
[2024-02-03 08:23] LABS: Basophils # (A) 0.1 k/uL (0-0.2); Basophils % (A) 1 %; Eosinophils # (A) 0.2 k/uL (0-0.7); Eosinophils % (A) 3 %; HCT 35.6 % (34.0-46.0); HGB 11.4 gm/dL (11.4-16.0); Lymphocytes # (A) 0.8 k/uL (1.0-4.8); Lymphocytes % (A) 10 %; MCH 30.2 pg (25.0-35.0); MCHC 32.1 g/dL (31.0-37.0); MCV 94.2 fL (80.0-100.0); Mean Platelet Volume 8.1; Monocytes # (A) 0.6 k/uL (0-1.0); Monocytes % (A) 7 %; Neutrophils # (A) 6.8 k/uL (1.3-7.7); Neutrophils % (A) 79 %; Platelet Count 271 k/uL (150-450); RBC 3.78 m/uL (3.80-5.40); RDW 12.6 % (11.5-15.5); WBC 8.6 k/uL (3.8-10.6)
[2024-02-03] MEDS: SOTALOL 80 MG TAB PO SCH (08:43)
[2024-02-03] MEDS: lisinopriL 20 MG TAB PO SCH (08:44)
[2024-02-03] MEDS: PANTOPRAZOLE 40 MG TABLET PO SCH (08:44)
[2024-02-03 08:50] LABS: ALT 80 U/L (4-34); AST 48 U/L (14-36); African American GFR (CKD) >90 (>60 ml/min/1.73 sqM); Albumin 3.1 g/dL (3.5-5.0); Albumin/Globulin Ratio 1.3; Alkaline Phosphatase 185 U/L (38-126); Anion Gap 4 mmol/L; Blood Urea Nitrogen 26 mg/dL (7-17); Calcium 8.8 mg/dL (8.4-10.2); Carbon Dioxide 28 mmol/L (22-30); Chloride 102 mmol/L (98-107); Globulin 2.4 g/dL; Glucose 104 mg/dL (74-99); Non-African American GFR(CKD) 83 (>60 ml/min/1.73 sqM); Phosphorus 3.3 mg/dL (2.5-4.5); Potassium 4.8 mmol/L (3.5-5.1); Sodium 134 mmol/L (137-145); Total Bilirubin 0.5 mg/dL (0.2-1.3); Total Protein 5.5 g/dL (6.3-8.2)
--- NOTE | 2024-02-03 09:40 | P.PN ---
Subjective Progress Note Date: 02/03/24 Principal diagnosis: Abdominal pain possibly secondary to constipation or urine retention. 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 On January 24, 2024 she underwent a robotic assisted thoracoscopic surgery with right lower lobectomy, mediastinal lymph node dissection and intercostal nerve block 3 levels Patient was seen and examined in follow-up today February 03, 2024 at her bedside on the 6 floor medical unit. She is currently laying in bed, is awake, alert, oriented x 3 and is in no acute apparent distress. Denies any complaints of shortness of breath at this time, is complaining of some episodes of nausea, denies any emesis, and is complaining of some right chest surgical pain. She was admitted yesterday with complaints of constipation and the patient reports that she did have a large bowel movement yesterday February 02, 2024. Choi catheter remains in place for complaints of urine retention, urology consult remains pending. Oxygen saturations are 97% on room air and she is achieving 1500 mL on her incentive spirometry with encouragement. The patient reports she has been up ambulating in the hallway yesterday several times and tolerated well. She is anxious to be discharged home. Objective - Vital Signs Vital signs: Vital Signs Temp 97.6 F 02/03/24 07:00 Pulse 67 02/03/24 07:00 Resp 19 02/03/24 07:00 BP 172/74 02/03/24 07:00 Pulse Ox 97 02/03/24 09:12 FiO2 Intake & Output 02/02/24 02/03/24 02/03/24 18:59 06:59 18:59 Intake Total 118 Output Total 1999 Balance -1881 Intake: Oral 118 Output: Urine 1999 Other: Voiding Method Indwelling Catheter Indwelling Catheter Indwelling Catheter # Bowel Movements 1 - Exam CONSTITUTIONAL: Cooperative, no acute distress RESPIRATORY: Lungs sounds diminished bilaterally. Respirations symmetrical, nonlabored. Currently on room air with oxygen saturation 97%. Able to achieve 1500 mL on her incentive spirometry. Strong cough. CARDIOVASCULAR: S1, S2 present. Soft systolic murmur. Regular rate and rhythm. Palpable peripheral pulses bilaterally. No edema present. No calf pain or tenderness noted. GASTROINTESTINAL: Abdomen soft, nontender, nondistended. Active bowel sounds present 4 quadrants. Tolerating diet. Episodes of nausea. GENITOURINARY: Choi catheter is in place for urine retention. INTEGUMENTARY: Skin is warm and dry with no evidence of clubbing or cyanosis. Right chest incisions clean, dry and well-approximated. NEUROLOGIC: Cranial nerves II through XII intact. MUSKULOSKELETAL: Able to move all extremities, strength equal bilaterally, gait normal. PSYCHIATRIC: Alert and oriented to person place and time, appropriate affect, intact judgment and insight. - Allied health notes Allied health notes reviewed: nursing - Labs CBC & Chem 7: 02/03/24 07:08 02/03/24 07:08 Labs: Abnormal Lab Results - Last 24 Hours (Table) 02/03/24 02/03/24 Range/Units 07:08 07:08 RBC 3.78 L (3.80-5.40) m/uL Lymphocytes # 0.8 L (1.0-4.8) k/uL Sodium 134 L (137-145) mmol/L BUN 26 H (7-17) mg/dL Glucose 104 H (74-99) mg/dL AST 48 H (14-36) U/L ALT 80 H (4-34) U/L Alkaline Phosphatase 185 H (38-126) U/L Total Protein 5.5 L (6.3-8.2) g/dL Albumin 3.1 L (3.5-5.0) g/dL Assessment and Plan Assessment: Abdominal pain possibly secondary to constipation or urine retention Lepidic adenocarcinoma right lower lobe, status post bronchoscopy, right robotic assisted thorascopic surgery with right lower lobectomy, mediastinal lymph node dissection, intercostal nerve block - 3 levels; final pathology consistent with 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 Medical management and other comorbidities per primary care service. May be discharged home per the cardiothoracic surgery standpoint when okay with primary care and other consultants. Pain control per current as needed orders. Increase activity as tolerated. Encourage ambulation in the hallway and out of bed for all meals. Choi catheter management per urology recommendations. More recommendations to follow based on patient's clinical course. Time with Patient: Greater than 30
--- NOTE | 2024-02-03 10:11 | P.GSCN ---
History of Present Illness Consult date: 02/03/24 Reason for Consult: Urinary retention History of present illness: This is an 83-year-old female that presented to the hospital with abdominal p ain. Urology is consulted for urinary retention. She is status post right- sided robotic lobectomy by Dr. Amaral on January 23. On presentation she underwent a CT abdomen and pelvis that showed evidence of distended bladder, subsequently Choi catheter was placed with return of 600 mL of urine. At baseline she denies any voiding dysfunction. She does have hx of pelvic organ prolapse currently been managed with pessary. No previous history of urinary retention. Denies any dysuria or gross hematuria Review of Systems - Constitutional Denies chills, Denies fever - Cardiovascular Denies chest pain, Denies shortness of breath - Respiratory Denies cough, Denies 7 - Gastrointestinal Reports abdominal pain, Denies nausea, Denies vomiting Past Medical History Past Medical History: Atrial Fibrillation, Cancer, Deep Vein Thrombosis (DVT), Eye Disorder, GERD/Reflux, Hyperlipidemia, Hypertension, Osteoarthritis (OA) Additional Past Medical History / Comment(s): GERD resolved. Varicose veins. Heart murmur, palpitations, born with atrial septal defect. Back pain, numbness/tingling in legs and feet, neuropathy - feet. Occasional incontinence of urine, pessary in place. Occasional rash under breasts, no issue currently. History of Any Multi-Drug Resistant Organisms: None Reported Past Surgical History: Appendectomy, Cardiac Ablation, Cholecystectomy, Heart Catheterization, Hysterectomy, Joint Replacement, Orthopedic Surgery Additional Past Surgical History / Comment(s): Varicose veins stripped/surgery, heart catheterization X2, vaginal vault inversion using pessary, EP study/heart ablation 04/2009 and 06/2009, [facility], benign skin lesion removed from face, colonosocopy, bilateral knee replacments, 2nd toe right foot ingrown toe nail removed, eye stents for glaucoma, bilateral cataract surgery, left femur fracture - nichole placed December 2022. Past Anesthesia/Blood Transfusion Reactions: No Reported Reaction Additional Past Anesthesia/Blood Transfusion Reaction / Comm: Blood transfusion X3 with no reactions after femur surgery. 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 Smoking Status: Never smoker Past Alcohol Use History: None Reported Past Drug Use History: None Reported - Past Family History Mother Family Medical History: Cancer Additional Family Medical History / Comment(s): at age 62 from pancreatic cancer. Father Additional Family Medical History / Comment(s): Was healthy till MVA accident at age 81-closed head injruy but lived 1 day shy of age 90 Medications and Allergies Home Medications Medication Instructions Recorded Confirmed Type ALPRAZolam [Xanax] 0.25 mg PO BID 04/24/14 02/02/24 History Rivaroxaban [Xarelto] 20 mg PO HS 11/05/23 02/02/24 History Sotalol [Betapace] 40 mg PO HS 11/05/23 02/02/24 History Sotalol [Betapace] 80 mg PO DAILY 11/05/23 02/02/24 History lisinopriL [Zestril] 20 mg PO DAILY 11/05/23 02/02/24 History Budesonide-Formot 160-4.5 Mcg 2 puff INHALATION RT-BID 01/21/24 02/02/24 History [Symbicort 160-4.5 Mcg Inhaler] Latanoprost [Latanoprost 0.005%] 1 drop LEFT EYE HS 01/21/24 02/02/24 History Acetaminophen Tab [Tylenol] 1,000 mg PO Q6HR PRN tab 02/01/24 02/02/24 Rx traMADol HCl [Ultram] 50 mg PO Q6H PRN #28 tab 02/01/24 02/02/24 Rx ALPRAZolam [Xanax] 0.25 mg PO DAILY PRN 02/02/24 02/02/24 History Albuterol Sulfate [Albuterol 1 puff INHALATION RT-TID 02/02/24 02/02/24 History Sulfate Hfa] Ammonium Lactate Lotion 1 applic TOPICAL BID PRN 02/02/24 02/02/24 History [Lac-Hydrin 12% Lotion] Ketoconazole 2% Cream [Nizoral 2%] 1 applic TOPICAL BID PRN 02/02/24 02/02/24 History Metoprolol Tartrate [Lopressor] 12.5 mg PO BID 02/02/24 02/02/24 History Sennosides-Docusate Sodium 1 tab PO BID PRN 02/02/24 02/02/24 History [Senokot-S] Allergies Allergy/AdvReac Type Severity Reaction Status Date / Time Sulfa (Sulfonamide Allergy Rash/Hives Verified 02/02/24 13:00 Antibiotics) Surgical - Exam Vital Signs Temp Pulse Resp BP Pulse Ox 98.5 F 66 22 184/88 99 02/01/24 23:49 02/01/24 23:49 02/01/24 23:49 02/01/24 23:49 02/01/24 23:49 - General no distress, no pain - Eyes normal ocular movement, no pale - ENT normal nares, normal mucosa - Respiratory normal expansion, normal respiratory effort - Psychiatric oriented to time, oriented to person, oriented to place Results - Labs 02/03/24 07:08 02/03/24 07:08 Abnormal Lab Results - Last 24 Hours (Table) 02/03/24 02/03/24 Range/Units 07:08 07:08 RBC 3.78 L (3.80-5.40) m/uL Lymphocytes # 0.8 L (1.0-4.8) k/uL Sodium 134 L (137-145) mmol/L BUN 26 H (7-17) mg/dL Glucose 104 H (74-99) mg/dL AST 48 H (14-36) U/L ALT 80 H (4-34) U/L Alkaline Phosphatase 185 H (38-126) U/L Total Protein 5.5 L (6.3-8.2) g/dL Albumin 3.1 L (3.5-5.0) g/dL Diabetes panel 02/03/24 Range/Units 07:08 Sodium 134 L (137-145) mmol/L Potassium 4.8 (3.5-5.1) mmol/L Chloride 102 (98-107) mmol/L Carbon Dioxide 28 (22-30) mmol/L BUN 26 H (7-17) mg/dL Creatinine 0.65 (0.52-1.04) mg/dL Glucose 104 H (74-99) mg/dL Calcium 8.8 (8.4-10.2) mg/dL AST 48 H (14-36) U/L ALT 80 H (4-34) U/L Alkaline Phosphatase 185 H (38-126) U/L Total Protein 5.5 L (6.3-8.2) g/dL Albumin 3.1 L (3.5-5.0) g/dL Calcium panel 02/03/24 Range/Units 07:08 Calcium 8.8 (8.4-10.2) mg/dL Phosphorus 3.3 (2.5-4.5) mg/dL Albumin 3.1 L (3.5-5.0) g/dL Pituitary panel 02/03/24 Range/Units 07:08 Sodium 134 L (137-145) mmol/L Potassium 4.8 (3.5-5.1) mmol/L Chloride 102 (98-107) mmol/L Carbon Dioxide 28 (22-30) mmol/L BUN 26 H (7-17) mg/dL Creatinine 0.65 (0.52-1.04) mg/dL Glucose 104 H (74-99) mg/dL Calcium 8.8 (8.4-10.2) mg/dL Adrenal panel 02/03/24 Range/Units 07:08 Sodium 134 L (137-145) mmol/L Potassium 4.8 (3.5-5.1) mmol/L Chloride 102 (98-107) mmol/L Carbon Dioxide 28 (22-30) mmol/L BUN 26 H (7-17) mg/dL Creatinine 0.65 (0.52-1.04) mg/dL Glucose 104 H (74-99) mg/dL Calcium 8.8 (8.4-10.2) mg/dL Total Bilirubin 0.5 (0.2-1.3) mg/dL AST 48 H (14-36) U/L ALT 80 H (4-34) U/L Alkaline Phosphatase 185 H (38-126) U/L Total Protein 5.5 L (6.3-8.2) g/dL Albumin 3.1 L (3.5-5.0) g/dL Assessment and Plan Assessment: 83-year-old female with urinary retention, recently underwent right-sided lobectomy. Retention most likely secondary to underlying voiding dysfunction given her age, worsened by recent exposure to anesthesia and constipation -Choi can be removed prior to discharge, please obtain a postvoid residual after catheter removal, if her postvoid is less than 400 mL she is stable for discharge from urology standpoint
--- NOTE | 2024-02-03 12:12 | P.PN ---
Subjective Progress Note Date: 02/03/24 patient is 83-year-old lady with past medical history significant for adenocarcinoma of the right lung status post right lower lobe lobectomy along with mediastinal lymph node dissection, chronic A. fib, hyperlipidemia, seborrheic dermatitis, history of mitral valve prolapse who presented to the ER for abdominal pain.patient was recently admitted in the hospital from 01/23 to 01/31after undergoing robotic-assisted right lower lobe resection. patient states that ever since her discharge she has been having pain at the site of surgery. Patient also complaining of abdominal pain.denies any nausea or vomiting. Complaining of constipation. No complete of blood in the stools. Patient was complaining of urinary retention as well. There was no complain of fever or chills. Denied any increased frequency or burning while urination. Because off these symptoms, patient came to ER Initial lab work done in the ER showed WBC 8.4, hemoglobin 11.1, platelet count 258, sodium 131), BUN 40, creatinine 0.77, AST 20, AST 38, proBNP 147, lipase 256, UA negative for infection CT of abdomen pelvis done showed small 15% right-sided pneumothorax with 3.5 cm off fluid in the lower right pleural space. It is also a small amount of gas in the right retroperitoneum. Urinary bladder is borderline dilated measuring 15 cm Patient admitted to internal medicine service 02/02. Patient seen and examined. Had a bowel movement last night. Still having pain at the site of surgery. Discussed with her regarding pain control and keeping on current pain medications. Urology evaluated the patient, recommended trial of void REVIEW OF SYSTEMS: CONSTITUTIONAL: No fever, no malaise,. CARDIOVASCULAR: No chest pain, no palpitations, no syncope. PULMONARY: No shortness of breath, no cough, GASTROINTESTINAL: No diarrhea, no nausea, no vomiting, no abdominal pain. NEUROLOGICAL: No headaches, no weakness, PHYSICAL EXAMINATION: GENERAL: The patient is alert and oriented x3, not in any acute distress. Well developed, well nourished. HEENT: Pupils are round and equally reacting to light. EOMI. No scleral icterus. No conjunctival pallor. Normocephalic, atraumatic. No pharyngeal erythema. No thyromegaly. CARDIOVASCULAR: S1 and S2 present. No murmurs, rubs, or gallops. PULMONARY: Chest is clear to auscultation, no wheezing or crackles. Right-sided chest wall incision seen ABDOMEN: Soft, nontender, nondistended, normoactive bowel sounds. No palpable organomegaly. MUSCULOSKELETAL: No joint swelling or deformity. EXTREMITIES: No cyanosis, clubbing, or pedal edema. NEUROLOGICAL: Gross neurological examination did not reveal any focal deficits. SKIN: No rashes. Assessment and plan Pulm adenocarcinoma status post robotic assisted right lower lobe resection. right apical pneumothorax. Chronic atrial fibrillation maintained on Xarelto Hypertension Hyperlipidemia History of bronchial asthma, the patient is a lifelong non-smoker Chronic back pain History of ASD Osteoarthritis Monitor vital signs Monitor CBC Monitor CMP Continue pain management Continue bladder management per protocol continue Symbicort and albuterol Continue lisinopril and Lopressor aggressive Bowel regimen Ordered chest x-ray urology following CT surgery following Labs and medication were reviewed.. Continue same treatment. Continue with sym ptomatic treatment. Resume home medication. Monitor labs and vitals. DVT and GI prophylaxis. Further recommendations as per clinical course of the patient Dictation was produced using [employer] dictation software. please excuse any grammatical, word or spelling errors. Objective - Vital Signs Vital signs: Vital Signs Temp 97.6 F 02/03/24 07:00 Pulse 67 02/03/24 07:00 Resp 19 02/03/24 07:00 BP 172/74 02/03/24 07:00 Pulse Ox 97 02/03/24 09:12 FiO2 Intake & Output 02/02/24 02/03/24 02/03/24 18:59 06:59 18:59 Intake Total 118 Output Total 1999 Balance -1882 -550 Intake: Oral 118 Output: Urine 1999 550 Other: Voiding Method Indwelling Catheter Indwelling Catheter Indwelling Catheter # Bowel Movements 1 - Labs CBC & Chem 7: 02/03/24 07:08 02/03/24 07:08 Labs: Abnormal Lab Results - Last 24 Hours (Table) 02/03/24 02/03/24 Range/Units 07:08 07:08 RBC 3.78 L (3.80-5.40) m/uL Lymphocytes # 0.8 L (1.0-4.8) k/uL Sodium 134 L (137-145) mmol/L BUN 26 H (7-17) mg/dL Glucose 104 H (74-99) mg/dL AST 48 H (14-36) U/L ALT 80 H (4-34) U/L Alkaline Phosphatase 185 H (38-126) U/L Total Protein 5.5 L (6.3-8.2) g/dL Albumin 3.1 L (3.5-5.0) g/dL
[2024-02-04] MEDS: ACETAMINOPHEN TAB 500 MG TAB PO SCH (12:11)
[2024-02-04 14:27] VITALS: BP 172/64; PULSE 49; RESP 16; TEMP 97.7
--- NOTE | 2024-02-06 22:36 | P.DS ---
Providers Date of admission: 02/02/24 04:14 Expected date of discharge: 02/04/24 Attending physician: Sandeep Dickey Consults: 02/02/24 09:43 Consult Physician Routine Consulting Provider: Mynor Joyce Consult Reason/Comments: urinary retention Do you want consulting provider notified?: Yes 02/02/24 09:47 Consult Physician Urgent Consulting Provider: Nirav Amaral Consult Reason/Comments: recent CT surgery, abd pain Do you want consulting provider notified?: Yes Primary care physician: [facility] Hospital Course: patient is 83-year-old lady with past medical history significant for adenocarcinoma of the right lung status post right lower lobe lobectomy along with mediastinal lymph node dissection, chronic A. fib, hyperlipidemia, seborrheic dermatitis, history of mitral valve prolapse who presented to the ER for abdominal pain.patient was recently admitted in the hospital from 01/23 to 01/31after undergoing robotic-assisted right lower lobe resection. patient states that ever since her discharge she has been having pain at the site of surgery. Patient also complaining of abdominal pain.denies any nausea or vomiting. Complaining of constipation. No complete of blood in the stools. Patient was complaining of urinary retention as well. There was no complain of fever or chills. Denied any increased frequency or burning while urination. Because off these symptoms, patient came to ER Initial lab work done in the ER showed WBC 8.4, hemoglobin 11.1, platelet count 258, sodium 131), BUN 40, creatinine 0.77, AST 20, AST 38, proBNP 147, lipase 256, UA negative for infection CT of abdomen pelvis done showed small 15% right-sided pneumothorax with 3.5 cm off fluid in the lower right pleural space. It is also a small amount of gas in the right retroperitoneum. Urinary bladder is borderline dilated measuring 15 cm Patient admitted to internal medicine service 02/02. Patient seen and examined. Had a bowel movement last night. Still having pain at the site of surgery. Discussed with her regarding pain control and keeping on current pain medications. Urology evaluated the patient, recommended trial of void February 03: Had a very lengthy discussion with the patient and daughter at the bedside. Long discussion about pain medications. She is only taking her Ultram and Tylenol as needed. Did discuss to make it scheduled. Also to use a heating pad. Spoke to Ally from cardiothoracic team. No further intervention. Ally did come down and talk to the patient again. Nutritional supplement was also discussed. Choi was discontinued. Patient did make urine. Patient scheduled to follow-up with cardiothoracic. There are questions about infection but this is already being addressed. The pain patient been having has been presents since her surgery. And has been addressed. Questions answered. Patient's daughter is helping with her care. Patient blood pressure has been reading high because of anxiety and pain. The daughter did say the previous night after taking pain medication she was very well-controlled. Because of patient being on Xarelto patient cannot really take NSAIDs. Discussion and discharge planning more than 35 minutes On examination: VITAL SIGNS: [97.9, 63, 18, 172 x 64, 98% room air] GENERAL APPEARANCE: Sitting at the edge of the bed. A bit anxious HEENT: Normal external appearance of nose and ear. Oral cavity normal EYES: Pupils equal. Conjunctiva normal. NECK: JVD not raised. Mass not palpable. RESPIRATORY: Respiratory effort normal. Lungs clear to auscultation. CARDIOVASCULAR: First and second sounds normal. No edema. ABDOMEN: Soft. Liver and spleen not palpable. No tenderness. No mass palpable. PSYCHIATRY: Alert and oriented x3. Mood and affect anxious INVESTIGATIONS, reviewed in the clinical context: February 03, 2024: White count 8.6 hemoglobin 11.4 platelets 271 potassium 4.8 creatinine 0.[address]: Small 15% right-sided pneumothorax. Chest x-ray film personally reviewed by me-cardiomegaly Assessment and plan Pulm adenocarcinoma status post robotic assisted right lower lobe resection. -Small 15% right apical pneumothorax. Chronic atrial fibrillation maintained on Xarelto Hypertension Hyperlipidemia Rhonchal asthma Chronic back pain History of ASD Osteoarthritis Disposition: Home Plan - Discharge Summary New Discharge Prescriptions: New Psyllium Husk (with Sugar) [Metamucil Powder] 0 gm PO DAILY 30 Days #575 gm Famotidine [Pepcid] 20 mg PO BID #60 tablet Continue ALPRAZolam [Xanax] 0.25 mg PO BID Sotalol [Betapace] 80 mg PO DAILY Budesonide-Formot 160-4.5 Mcg [Symbicort 160-4.5 Mcg Inhaler] 2 puff INH ALATION RT-BID Latanoprost [Latanoprost 0.005%] 1 drop LEFT EYE HS Ammonium Lactate Lotion [Lac-Hydrin 12% Lotion] 1 applic TOPICAL BID PRN PRN Reason: under breasts for flare up Metoprolol Tartrate [Lopressor] 12.5 mg PO BID lisinopriL [Zestril] 20 mg PO DAILY Sotalol [Betapace] 40 mg PO HS Rivaroxaban [Xarelto] 20 mg PO HS Acetaminophen Tab [Tylenol] 1,000 mg PO Q6HR PRN tab PRN Reason: Fever And/ Or Pain traMADol HCl [Ultram] 50 mg PO Q6H PRN #28 tab PRN Reason: Breakthrough Pain Ketoconazole 2% Cream [Nizoral 2%] 1 applic TOPICAL BID PRN PRN Reason: under breasts for flare up ALPRAZolam [Xanax] 0.25 mg PO DAILY PRN PRN Reason: Anxiety Albuterol Sulfate [Albuterol Sulfate Hfa] 1 puff INHALATION RT-TID Sennosides-Docusate Sodium [Senokot-S] 1 tab PO BID PRN PRN Reason: Constipation Discharge Medication List ALPRAZolam [Xanax] 0.25 mg PO BID 04/24/14 [History] Rivaroxaban [Xarelto] 20 mg PO HS 11/05/23 [History] Sotalol [Betapace] 40 mg PO HS 11/05/23 [History] Sotalol [Betapace] 80 mg PO DAILY 11/05/23 [History] lisinopriL [Zestril] 20 mg PO DAILY 11/05/23 [History] Budesonide-Formot 160-4.5 Mcg [Symbicort 160-4.5 Mcg Inhaler] 2 puff INHALATION RT-BID 01/21/24 [History] Latanoprost [Latanoprost 0.005%] 1 drop LEFT EYE HS 01/21/24 [History] Acetaminophen Tab [Tylenol] 1,000 mg PO Q6HR PRN tab 02/01/24 [Rx] traMADol HCl [Ultram] 50 mg PO Q6H PRN #28 tab 02/01/24 [Rx] ALPRAZolam [Xanax] 0.25 mg PO DAILY PRN 02/02/24 [History] Albuterol Sulfate [Albuterol Sulfate Hfa] 1 puff INHALATION RT-TID 02/02/24 [History] Ammonium Lactate Lotion [Lac-Hydrin 12% Lotion] 1 applic TOPICAL BID PRN 02/02/24 [History] Ketoconazole 2% Cream [Nizoral 2%] 1 applic TOPICAL BID PRN 02/02/24 [History] Metoprolol Tartrate [Lopressor] 12.5 mg PO BID 02/02/24 [History] Sennosides-Docusate Sodium [Senokot-S] 1 tab PO BID PRN 02/02/24 [History] Famotidine [Pepcid] 20 mg PO BID #60 tablet 02/04/24 [Rx] Psyllium Husk (with Sugar) [Metamucil Powder] 0 gm PO DAILY 30 Days #575 gm 02/04/24 [Rx] Follow up Appointment(s)/Referral(s): Walker Mckeon MD [Primary Care Provider] - 1-2 days Yuan Boothe DO [Doctor of Osteopathic Medicine] - 02/13/24 9:45 am Nirav Amaral MD [STAFF PHYSICIAN] - 02/07/24 11:45 am Activity/Diet/Wound Care/Special Instructions: DISCHARGE INSTRUCTIONS: 1. No driving for 2 weeks, or until physician gives their ok. 2. No lifting, pushing, or pulling more than 10 pounds for 2 weeks. The physician will advise of any restriction changes. 3. Continue pain control per as needed orders. Alternate acetaminophen (Tylenol) and Tramadol for pain. 4. Continue with incentive spirometry and splinting until otherwise directed by the physician. 5. Leave chest tube dressing for 48 hours. After that, remove all dressings and shower daily. 6. Routine incision care. No powders, lotions, ointments on incisions. 7. Please call surgeon/HEALTH INFORMATION CLERK for temp greater than 101 F or purulent drainage from incisions.
== END 2024-02-04 16:11 ==
LOC: EC 23:47 → 6NMEDSUR 02-02 04:14
PROVIDERS: ADMIT Hospitalist; ATTEND Hospitalist
DX: C34.31 Malignant neoplasm of lower lobe, right bronchus or lung (principal); J93.83 Other pneumothorax; R10.9 Unspecified abdominal pain; G89.18 Other acute postprocedural pain; R33.9 Retention of urine, unspecified; I48.0 Paroxysmal atrial fibrillation; I10 Essential (primary) hypertension; K21.9 Gastro-esophageal reflux disease without esophagitis; E78.5 Hyperlipidemia, unspecified; F41.9 Anxiety disorder, unspecified; J45.909 Unspecified asthma, uncomplicated; Q21.10 Atrial septal defect, unspecified; M19.90 Unspecified osteoarthritis, unspecified site; G89.29 Other chronic pain; M54.9 Dorsalgia, unspecified; G62.9 Polyneuropathy, unspecified; Z86.718 Personal history of other venous thrombosis and embolism; Z79.01 Long term (current) use of anticoagulants; Z79.899 Other long term (current) drug therapy; Z79.51 Long term (current) use of inhaled steroids; Z88.2 Allergy status to sulfonamides
CPT/HCPCS: 96376 ×4; 96361 ×3; 96375 ×2; 96374; 99285; 36415; 94640 ×6; 94760 ×2; 93005; 83880; 80053 ×2; 83605; 83690; 83735 ×2; 84100 ×2; 84484; 85025 ×2; 85610; 85730; 81001; 71045; 74177; G0378 ×3; J2270; J2405 ×3; J1170; J1885 ×3; Q9967

== ENCOUNTER → 2024-02-07 | Outpatient (CLI) | payer MEDICARE, BC ==
--- NOTE | 2024-02-07 15:34 | XR ---
EXAMINATION TYPE: XR chest 2V DATE OF EXAM: 02/07/2024 COMPARISON: 02/02/2024 HISTORY: 83-year-old female R06.02, shortness of breath TECHNIQUE: Frontal and lateral views FINDINGS: Heart normal size. Aorta and pulmonary vasculature within normal limits. Residual patchy right suprah ilar opacity. Eventration right hemidiaphragm redemonstrated. Some improving aeration at the right ba se. Blunted right costophrenic angle persists. Trace 5 mm right apical pneumothorax remains. Dextroc onvex scoliosis of the thoracic spine. IMPRESSION: Similar small right pleural effusion. A trace right apical pneumothorax remains measuring 5 mm versus 1 cm, previously.
== END | disposition home or self-care (01) ==
LOC: LABWHC1 14:50
PROVIDERS: ATTEND Thoracic Surgery (Cardiothoracic Vascular Surgery)
DX: J90 Pleural effusion, not elsewhere classified (principal); J93.9 Pneumothorax, unspecified
CPT/HCPCS: 71046

== ENCOUNTER 2024-02-12 08:59 | Emergency (ER) | payer MEDICARE, BC ==
--- NOTE | 2024-02-12 10:00 | XR ---
EXAMINATION TYPE: XR chest 2V DATE OF EXAM: 02/12/2024 COMPARISON: 02/07/2024 TECHNIQUE: PA and lateral views submitted. HISTORY: Shortness of breath FINDINGS: Irregular density in the right upper lobe persists. Arthropathy of the shoulders. Diffuse osteopenia. Curvature of the spine.. Heart size normal and no overt failure. Osseous structures demonstrate hyp ertrophic and degenerative changes of the spine. Stable small less than 5% right apical pneumothorax. IMPRESSION: 1. Irregular density right upper lobe persists could represent underlying scarring. Underlying neopla sm is not excluded. 2. Stable right apical pneumothorax measuring less than 5%.
--- NOTE | 2024-02-12 10:06 | ED ---
General Adult HPI - General Chief complaint: Shortness of Breath Stated complaint: SOB Time Seen by Provider: 02/12/24 09:07 Source: patient, family Mode of arrival: wheelchair Limitations: no limitations - History of Present Illness Initial comments: Dictation was produced using [employer] dictation software. please excuse any grammatical, word or spelling errors. Chief Complaint: 83-year-old female with shortness of breath History of Present Illness: Patient is an 83-year-old female recently she had lobectomy surgery performed by cardiothoracic surgery, Dr. Amaral 19 days ago. 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 States that she was hospitalized for several days after the procedure. She was discharged 6 days ago. Since being home she has been still feeling short of breath. Patient tearful states that she has pain at where the surgical site was performed. But she is more here for shortness of breath. Denies any fever, chills or night sweats. The ROS documented in this emergency department record has been reviewed and confirmed by me. Those systems with pertinent positive or negative responses have been documented in the HPI. All other systems are other negative and/or noncontributory. - Related Data Home Medications Medication Instructions Recorded Confirmed ALPRAZolam [Xanax] 0.25 mg PO BID 04/24/14 02/12/24 Rivaroxaban [Xarelto] 20 mg PO HS 11/05/23 02/12/24 Sotalol [Betapace] 40 mg PO HS 11/05/23 02/12/24 Sotalol [Betapace] 80 mg PO DAILY 11/05/23 02/12/24 lisinopriL [Zestril] 20 mg PO DAILY 11/05/23 02/12/24 Budesonide-Formot 160-4.5 Mcg 2 puff INHALATION RT-BID 01/21/24 02/12/24 [Symbicort 160-4.5 Mcg Inhaler] Latanoprost [Latanoprost 0.005%] 1 drop LEFT EYE HS 01/21/24 02/12/24 ALPRAZolam [Xanax] 0.25 mg PO DAILY PRN 02/02/24 02/12/24 Albuterol Sulfate [Albuterol 2 puff INHALATION RT-TID 02/02/24 02/12/24 Sulfate Hfa] Ammonium Lactate Lotion 1 applic TOPICAL BID PRN 02/02/24 02/12/24 [Lac-Hydrin 12% Lotion] Ketoconazole 2% Cream [Nizoral 2%] 1 applic TOPICAL BID PRN 02/02/24 02/12/24 Metoprolol Tartrate [Lopressor] 12.5 mg PO BID 02/02/24 02/12/24 Docusate [Colace] 200 mg PO BID PRN 02/12/24 02/12/24 polyethylene glycoL 3350 [Miralax] 17 gm PO DAILY PRN 02/12/24 02/12/24 Previous Rx's Medication Instructions Recorded Acetaminophen Tab [Tylenol] 1,000 mg PO Q6HR PRN tab 02/01/24 Famotidine [Pepcid] 20 mg PO BID #60 tablet 02/04/24 methocarbamoL [Robaxin] 1,000 mg PO TID PRN #24 tab 02/12/24 Allergies Allergy/AdvReac Type Severity Reaction Status Date / Time Sulfa (Sulfonamide Allergy Rash/Hives, Verified 02/12/24 12:29 Antibiotics) itching Review of Systems ROS Statement: Those systems with pertinent positive or pertinent negative responses have been documented in the HPI. ROS Other: All systems not noted in ROS Statement are negative. Past Medical History Past Medical History: Atrial Fibrillation, Cancer, Deep Vein Thrombosis (DVT), Eye Disorder, GERD/Reflux, Hyperlipidemia, Hypertension, Osteoarthritis (OA) Additional Past Medical History / Comment(s): GERD resolved. Varicose veins. Heart murmur, palpitations, born with atrial septal defect. Back pain, numbness/tingling in legs and feet, neuropathy - feet. Occasional incontinence of urine, pessary in place. Occasional rash under breasts, no issue currently. History of Any Multi-Drug Resistant Organisms: None Reported Past Surgical History: Appendectomy, Cardiac Ablation, Cholecystectomy, Heart Catheterization, Hysterectomy, Joint Replacement, Orthopedic Surgery Additional Past Surgical History / Comment(s): Varicose veins stripped/surgery, heart catheterization X2, vaginal vault inversion using pessary, EP study/heart ablation 04/2009 and 06/2009, TAYLER, benign skin lesion removed from face, colonosocopy, bilateral knee replacments, 2nd toe right foot ingrown toe nail removed, eye stents for glaucoma, bilateral cataract surgery, left femur fracture - nichole placed December 2022. Robotic assisted right lower lobectomy on January 24, 2024. Past Anesthesia/Blood Transfusion Reactions: No Reported Reaction Additional Past Anesthesia/Blood Transfusion Reaction / Comment(s): Blood transfusion X3 with no reactions after femur surgery. Past Psychological History: Anxiety Smoking Status: Never smoker Past Alcohol Use History: None Reported Past Drug Use History: None Reported - Past Family History Mother Family Medical History: Cancer Additional Family Medical History / Comment(s): at age 62 from pancreatic cancer. Father Additional Family Medical History / Comment(s): Was healthy till MVA accident at age 81-closed head injruy but lived 1 day shy of age 89 General Exam - General Exam Comments Initial Comments: PHYSICAL EXAM: General Impression: Alert and oriented x3, not in acute distress, tearful HEENT: Normocephalic atraumatic, extra-ocular movements intact, pupils equal and reactive to light bilaterally, mucous membranes moist. Cardiovascular: Heart regular rate and rhythm Chest: Able to complete full sentences, no retractions, no tachypnea Abdomen: abdomen soft, non-tender, non-distended, no organomegaly Musculoskeletal: Pulses present and equal in all extremities, no peripheral edema Motor: no focal deficits noted Neurological: CN II-XII grossly intact, no focal motor or sensory deficits noted Skin: Intact with no visualized rashes Limitations: no limitations Course Vital Signs 02/12/24 02/12/24 02/12/24 09:01 10:40 11:05 Temperature 97.3 F L 98.4 F Pulse Rate 64 54 L 52 L Respiratory 22 25 H 20 Rate Blood Pressure 174/90 193/82 198/86 O2 Sat by Pulse 99 99 99 Oximetry 02/12/24 02/12/24 02/12/24 11:22 12:02 13:04 Temperature 97.9 F 98.0 F Pulse Rate 57 L 56 L 56 L Respiratory 22 17 20 Rate Blood Pressure 202/91 189/80 169/84 O2 Sat by Pulse 100 98 100 Oximetry - Reevaluation(s) Reevaluation #1: 02/12/24 12:29 Case was discussed with Dr. Dickey. Request that cardiothoracic surgery be contacted given that this seems to be a cardiothoracic issue Reevaluation #2: 02/12/24 12:47 Case was discussed in detail with Dr. Amaral. Dr. Amaral is very familiar with this patient states that she is having difficulty managing her pain. States that he will have his nurse practitioner come and evaluate the patient at the bedside. EKG Findings - EKG Comments: EKG Findings:: My EKG interpretation: Ventricular rate 53, sinus bradycardia,. 1-24, cures 85, QTc 419. No WI prolongation, no QTC prolongation, no ST or T- wave changes noted. Medical Decision Making - Medical Decision Making Was pt. sent in by a medical professional or institution (, MARC, MILLER SUPERVISOR, urgent c are, hospital, or alf...) When possible be specific @ -No Did you speak to anyone other than the patient for history (EMS, parent, family, police, friend...)? What history was obtained from this source @ -Some history obtained from daughter at the bedside Did you review nursing and triage notes (agree or disagree)? Why? @ -I reviewed and agree with nursing and triage notes Were old charts reviewed (outside hosp., previous admission, EMS record, old EKG, old radiological studies, urgent care reports/EKG's, alf records)? Report findings @ -Cardiothoracic notes and discharge summary from recent admission was reviewed Differential Diagnosis (chest pain, altered mental status, abdominal pain women, abdominal pain men, vaginal bleeding, musculoskeletal, weakness, fever, dyspnea, syncope, headache, dizziness, GI bleed, back pain, seizure, CVA, palpatations, mental health)? @ -Differential Chest Pain: Stable Angina, Unstable Angina, STEMI, NSTEMI Aortic Dissection, Pneumothorax, Musculoskeletal, Esophageal Spasm GERD, Cholecystitis, Pancreatitis, Zoster, this is not meant to be an all-inclusive list. EKG interpreted by me (3pts min.). @ -See above X-rays interpreted by me (1pt min.). @ -Chest x-ray is nonacute CT interpreted by me (1pt min.). @ -None done U/S interpreted by me (1pt. min.). @ -None done What testing was considered but not performed or refused? (CT, X-rays, U/S, labs)? Why? @ -None What meds were considered but not given or refused? Why? @ -None Did you discuss the management of the patient with other professionals (professionals i.e. , MARC, MILLER SUPERVISOR, lab, RT, psych nurse, psychotherapist social worker, tugboat engineer, teacher, nuclear officer, shoe caser)? Give summary @ -See above Was smoking cessation discussed for >3mins.? @ -No Was critical care preformed (if so, how long)? @ -No Were there social determinants of health that impacted care today? How? (Homelessness, low income, unemployed, alcoholism, drug addiction, transportation, low edu. Level, literacy, decrease access to med. care, prison, rehab)? @ -No Was there de-escalation of care discussed even if they declined (Discuss DNR or withdrawal of care, Hospice)? DNR status @ -No What co-morbidities impacted this encounter? (DM, HTN, Smoking, COPD, CAD, Cancer, CVA, ARF, Chemo, Hep., AIDS, mental health diagnosis, sleep apnea, morbid obesity)? @ -None Was patient admitted / discharged? Hospital course, mention meds given and route, prescriptions, significant lab abnormalities, going to OR and other pertinent info. @ -83-year-old female presents emergency department with postoperative chest pain. Patient had robotic assisted cardiothoracic surgery for lobectomy to treat lung cancer. Vital signs stable. Laboratory evaluation is unremarkable. Case was discussed with hospitalist who deferred to cardiothoracic surgery for further recommendations. Spoke with Dr. Amaral. Dr. Amaral contacted his physician respiratory therapy assistant to come evaluate the patient make further recommendations. Patient reevaluated bedside at 1:52 PM stable medical edition she is sitting resting comfortably no acute distress. Patient seen and evaluated by cardiothoracic physician respiratory therapy assistant, Jayson Rolon. Do daja leg spoke with patient and family member they are agreeable for discharge. Patient given prescription for Robaxin and will follow-up with primary care doctor. Undiagnosed new problem with uncertain prognosis? @ -No Drug Therapy requiring intensive monitoring for toxicity (Heparin, Nitro, Insuli n, Cardizem)? @ -No Were any procedures done? @ -No Diagnosis/symptom? Acute, or Chronic, or Acute on Chronic? Uncomplicated (without systemic symptoms) or Complicated (systemic symptoms)? @ -Postoperative chest pain Side effects of treatment? @ -No Exacerbation, Progression, or Severe Exacerbation? @ -No Poses a threat to life or bodily function? How? (Chest pain, [place], [place], pneumonia, PE, COPD, DKA, ARF, appy, cholecystitis, CVA, Diverticulitis, Homicidal, Suicidal, threat to staff... and all critical care pts) @ -No - Lab Data Result diagrams: 02/12/24 10:52 02/12/24 10:52 Lab Results 02/12/24 02/12/24 02/12/24 Range/Units 10:52 10:52 11:10 WBC 8.8 (3.8-10.6) k/uL RBC 4.26 (3.80-5.40) m/uL Hgb 12.6 (11.4-16.0) gm/dL Hct 39.1 (34.0-46.0) % MCV 91.8 (80.0-100.0) fL MCH 29.6 (25.0-35.0) pg MCHC 32.3 (31.0-37.0) g/dL RDW 13.1 (11.5-15.5) % Plt Count 343 (150-450) k/uL MPV 7.7 Neutrophils % 72 % Lymphocytes % 16 % Monocytes % 6 % Eosinophils % 2 % Basophils % 1 % Neutrophils # 6.3 (1.3-7.7) k/uL Lymphocytes # 1.4 (1.0-4.8) k/uL Monocytes # 0.5 (0-1.0) k/uL Eosinophils # 0.2 (0-0.7) k/uL Basophils # 0.1 (0-0.2) k/uL Sodium 137 (137-145) mmol/L Potassium 4.6 (3.5-5.1) mmol/L Chloride 104 (98-107) mmol/L Carbon Dioxide 28 (22-30) mmol/L Anion Gap 5 mmol/L BUN 22 H (7-17) mg/dL Creatinine 0.50 L (0.52-1.04) mg/dL Est GFR (CKD-EPI)AfAm >90 (>60 ml/min/1.73 sqM) Est GFR (CKD-EPI)NonAf >90 (>60 ml/min/1.73 sqM) Glucose 100 H (74-99) mg/dL Calcium 9.6 (8.4-10.2) mg/dL Total Bilirubin 0.8 (0.2-1.3) mg/dL AST 29 (14-36) U/L ALT 36 H (4-34) U/L Alkaline Phosphatase 107 (38-126) U/L Troponin I <0.012 (0.000-0.034) ng/mL Total Protein 6.5 (6.3-8.2) g/dL Albumin 4.0 (3.5-5.0) g/dL Disposition Clinical Impression: Chest pain Disposition: HOME SELF-CARE Condition: Good Instructions (If sedation given, give patient instructions): Methocarbamol (By mouth) Prescriptions: methocarbamoL [Robaxin] 1,000 mg PO TID PRN #24 tab PRN Reason: Pain Is patient prescribed a controlled substance at d/c from ED?: No Referrals: Walker Mckeon MD [Primary Care Provider] - 1-2 days Nirav Amaral MD [STAFF PHYSICIAN] - 1-2 days Time of Disposition: 14:15
[2024-02-12 11:08] LABS: Basophils # (A) 0.1 k/uL (0-0.2); Basophils % (A) 1 %; Eosinophils # (A) 0.2 k/uL (0-0.7); Eosinophils % (A) 2 %; HCT 39.1 % (34.0-46.0); HGB 12.6 gm/dL (11.4-16.0); Lymphocytes # (A) 1.4 k/uL (1.0-4.8); Lymphocytes % (A) 16 %; MCH 29.6 pg (25.0-35.0); MCHC 32.3 g/dL (31.0-37.0); MCV 91.8 fL (80.0-100.0); Mean Platelet Volume 7.7; Monocytes # (A) 0.5 k/uL (0-1.0); Monocytes % (A) 6 %; Neutrophils # (A) 6.3 k/uL (1.3-7.7); Neutrophils % (A) 72 %; Platelet Count 343 k/uL (150-450); RBC 4.26 m/uL (3.80-5.40); RDW 13.1 % (11.5-15.5); WBC 8.8 k/uL (3.8-10.6)
[2024-02-12] MEDS: MORPHINE SULFATE 4 MG/ML SYRINGE IV STA (11:14)
[2024-02-12 11:16] LABS: ALT 36 U/L (4-34); AST 29 U/L (14-36); African American GFR (CKD) >90 (>60 ml/min/1.73 sqM); Alkaline Phosphatase 107 U/L (38-126); Anion Gap 5 mmol/L; Blood Urea Nitrogen 22 mg/dL (7-17); Calcium 9.6 mg/dL (8.4-10.2); Carbon Dioxide 28 mmol/L (22-30); Chloride 104 mmol/L (98-107); Glucose 100 mg/dL (74-99); Non-African American GFR(CKD) >90 (>60 ml/min/1.73 sqM); Potassium 4.6 mmol/L (3.5-5.1); Sodium 137 mmol/L (137-145); Total Bilirubin 0.8 mg/dL (0.2-1.3); Total Protein 6.5 g/dL (6.3-8.2)
[2024-02-12 14:46] VITALS: BP 186/78; PULSE 55; RESP 19; TEMP 97.9
--- NOTE | 2024-02-12 15:28 | P.GSCN ---
History of Present Illness Consult date: 02/12/24 Reason for Consult: Postoperative muscle spasms Requesting physician: Brijesh Daniel History of present illness: This is an 83-year-old female patient who follows on an outpatient basis with Dr. Walker Matamoros for her primary care and with Dr. Boothe for her pulmonary care. 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 On January 24, 2024 she underwent a robotic assisted thoracoscopic surgery with right lower lobectomy, mediastinal lymph node dissection and intercostal nerve block 3 levels. She presented to the emergency department here at [facility] today with complaints of muscle spasm to her right chest area around her thoracoscopic incisions. The patient reports she has never really had any pain relief since surgery with taking the Ultram and acetaminophen. She denies any nausea, vomiting, fever, chills, headache, cough, hematemesis, hemoptysis, chest pressure, shortness of breath, presyncope or syncope. The patient does report that she has a history of anxiety and her daughter is present at her bedside in the emergency department and reports she feels like her mom is having panic attacks. In the emergency department laboratory results showed a WBC count of 8.8, hemoglobin 12.6, hematocrit 39.1, platelets 343, BUN 22, creatinine 0.50, glucose 100, and troponins less than 0.012. A chest x-ray was completed which the report shows an irregular density to her right upper lobe which could re present underlying scarring, and a stable right apical pneumothorax measuring less than 5%. A twelve-lead EKG was completed which shows sinus bradycardia with a first-degree AV block, and no STT wave changes. Due to the patient's presenting symptoms and known to the cardiothoracic surgery service a consult was placed to Dr. Amaral for further evaluation and treatment recommendations. Review of Systems A 14 point review of systems was completed and was negative except as mentioned in the HPI. Past Medical History Past Medical History: Atrial Fibrillation, Cancer, Deep Vein Thrombosis (DVT), Eye Disorder, GERD/Reflux, Hyperlipidemia, Hypertension, Osteoarthritis (OA) Additional Past Medical History / Comment(s): GERD resolved. Varicose veins. Heart murmur, palpitations, born with atrial septal defect. Back pain, numbness/tingling in legs and feet, neuropathy - feet. Occasional incontinence of urine, pessary in place. Occasional rash under breasts, no issue currently. History of Any Multi-Drug Resistant Organisms: None Reported Past Surgical History: Appendectomy, Cardiac Ablation, Cholecystectomy, Heart Catheterization, Hysterectomy, Joint Replacement, Orthopedic Surgery Additional Past Surgical History / Comment(s): Varicose veins stripped/surgery, heart catheterization X2, vaginal vault inversion using pessary, EP study/heart ablation 04/2009 and 06/2009, TAYLER, benign skin lesion removed from face, colonosocopy, bilateral knee replacments, 2nd toe right foot ingrown toe nail removed, eye stents for glaucoma, bilateral cataract surgery, left femur fracture - nichole placed December 2022. Robotic assisted right lower lobectomy on January 24, 2024. Past Anesthesia/Blood Transfusion Reactions: No Reported Reaction Additional Past Anesthesia/Blood Transfusion Reaction / Comm: Blood transfusion X3 with no reactions after femur surgery. Past Psychological History: Anxiety Smoking Status: Never smoker Past Alcohol Use History: None Reported Past Drug Use History: None Reported - Past Family History Mother Family Medical History: Cancer Additional Family Medical History / Comment(s): at age 62 from pancreatic cancer. Father Additional Family Medical History / Comment(s): Was healthy till MVA accident at age 81-closed head injruy but lived 1 day shy of age 89 Medications and Allergies Home Medications Medication Instructions Recorded Confirmed Type ALPRAZolam [Xanax] 0.25 mg PO BID 04/24/14 02/12/24 History Rivaroxaban [Xarelto] 20 mg PO HS 11/05/23 02/12/24 History Sotalol [Betapace] 40 mg PO HS 11/05/23 02/12/24 History Sotalol [Betapace] 80 mg PO DAILY 11/05/23 02/12/24 History lisinopriL [Zestril] 20 mg PO DAILY 11/05/23 02/12/24 History Budesonide-Formot 160-4.5 Mcg 2 puff INHALATION RT-BID 01/21/24 02/12/24 History [Symbicort 160-4.5 Mcg Inhaler] Latanoprost [Latanoprost 0.005%] 1 drop LEFT EYE HS 01/21/24 02/12/24 History Acetaminophen Tab [Tylenol] 1,000 mg PO Q6HR PRN tab 02/01/24 02/12/24 Rx ALPRAZolam [Xanax] 0.25 mg PO DAILY PRN 02/02/24 02/12/24 History Albuterol Sulfate [Albuterol 2 puff INHALATION RT-TID 02/02/24 02/12/24 History Sulfate Hfa] Ammonium Lactate Lotion 1 applic TOPICAL BID PRN 02/02/24 02/12/24 History [Lac-Hydrin 12% Lotion] Ketoconazole 2% Cream [Nizoral 2%] 1 applic TOPICAL BID PRN 02/02/24 02/12/24 Hi story Metoprolol Tartrate [Lopressor] 12.5 mg PO BID 02/02/24 02/12/24 History Famotidine [Pepcid] 20 mg PO BID #60 tablet 02/04/24 02/12/24 Rx Docusate [Colace] 200 mg PO BID PRN 02/12/24 02/12/24 History methocarbamoL [Robaxin] 1,000 mg PO TID PRN #24 tab 02/12/24 Rx polyethylene glycoL 3350 [Miralax] 17 gm PO DAILY PRN 02/12/24 02/12/24 History Allergies Allergy/AdvReac Type Severity Reaction Status Date / Time Sulfa (Sulfonamide Allergy Rash/Hives, Verified 02/12/24 12:29 Antibiotics) itching Surgical - Exam Vital Signs Temp Pulse Resp BP Pulse Ox 97.3 F L 64 22 174/90 99 02/12/24 09:01 02/12/24 09:01 02/12/24 09:01 02/12/24 09:01 02/12/24 09:01 - General well developed, well nourished, no distress, moderate pain (Right chest muscle spasms), chronically ill, obese - Eyes PERRL, normal ocular movement, no pale, no icteric - ENT normal pinna, normal nares, normal mucosa, no congestion, decreased hearing (Hearing aids) - Neck Neck is supple, no lymphadenopathy. no masses, no bruits, trachea midline, no venous distension - Respiratory Lung sounds essentially clear throughout, diminished to her right lower lobe. Respirations are symmetrical and nonlabored. No wheezes, rhonchi or crackles. - Cardiovascular Regular rhythm and rate. S1 and S2 present, negative for S3 or gallop. Soft systolic murmur. - Abdomen Abdomen is soft, nontender and nondistended. Active bowel sounds present all 4 abdominal quadrants. No guarding or rigidity. - Genitourinary Deferred - Rectum Deferred - Integumentary Skin is warm and dry. No clubbing or cyanosis is present. Right chest thoracic incisions clean, dry and approximated. no rash - Neurologic No focal deficits. normal coordination, normal sensation - Musculoskeletal Moves all 4 extremities with equal strength bilateral. normal gait - Psychiatric oriented to time, oriented to person, oriented to place, speech is normal, memory intact Results - Labs 02/12/24 10:52 02/12/24 10:52 Abnormal Lab Results - Last 24 Hours (Table) 02/12/24 Range/Units 10:52 BUN 22 H (7-17) mg/dL Creatinine 0.50 L (0.52-1.04) mg/dL Glucose 100 H (74-99) mg/dL ALT 36 H (4-34) U/L Diabetes panel 02/12/24 Range/Units 10:52 Sodium 137 (137-145) mmol/L Potassium 4.6 (3.5-5.1) mmol/L Chloride 104 (98-107) mmol/L Carbon Dioxide 28 (22-30) mmol/L BUN 22 H (7-17) mg/dL Creatinine 0.50 L (0.52-1.04) mg/dL Glucose 100 H (74-99) mg/dL Calcium 9.6 (8.4-10.2) mg/dL AST 29 (14-36) U/L ALT 36 H (4-34) U/L Alkaline Phosphatase 107 (38-126) U/L Total Protein 6.5 (6.3-8.2) g/dL Albumin 4.0 (3.5-5.0) g/dL Calcium panel 02/12/24 Range/Units 10:52 Calcium 9.6 (8.4-10.2) mg/dL Albumin 4.0 (3.5-5.0) g/dL Pituitary panel 02/12/24 Range/Units 10:52 Sodium 137 (137-145) mmol/L Potassium 4.6 (3.5-5.1) mmol/L Chloride 104 (98-107) mmol/L Carbon Dioxide 28 (22-30) mmol/L BUN 22 H (7-17) mg/dL Creatinine 0.50 L (0.52-1.04) mg/dL Glucose 100 H (74-99) mg/dL Calcium 9.6 (8.4-10.2) mg/dL Adrenal panel 02/12/24 Range/Units 10:52 Sodium 137 (137-145) mmol/L Potassium 4.6 (3.5-5.1) mmol/L Chloride 104 (98-107) mmol/L Carbon Dioxide 28 (22-30) mmol/L BUN 22 H (7-17) mg/dL Creatinine 0.50 L (0.52-1.04) mg/dL Glucose 100 H (74-99) mg/dL Calcium 9.6 (8.4-10.2) mg/dL Total Bilirubin 0.8 (0.2-1.3) mg/dL AST 29 (14-36) U/L ALT 36 H (4-34) U/L Alkaline Phosphatase 107 (38-126) U/L Total Protein 6.5 (6.3-8.2) g/dL Albumin 4.0 (3.5-5.0) g/dL - Imaging Chest x-ray: report reviewed, image reviewed EKG: image reviewed Assessment and Plan Assessment: Muscle spasms to her right chest Lepidic adenocarcinoma right lower lobe, status post bronchoscopy, right robotic assisted thorascopic surgery with right lower lobectomy, mediastinal lymph node dissection, intercostal nerve block - 3 levels; final pathology consistent with 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 Her chart and diagnostics were reviewed. Her case was discussed in detail with Dr. Amaral from cardiothoracic surgery. Due to the patient's complaints of muscle spasms to her right chest she will be started on Robaxin 1000 mg 3 times daily as needed muscle spasms. She will follow-up with her primary care physician Dr. Matamoros tomorrow February 13, 2024 for further recommendations. Medical management other comorbidities per primary care service. Thank you for this consult, the patient is wanting to be discharged home and reports she will follow-up with her primary care physician tomorrow. I have personally seen and examined the patient, performed the documentation and the assessment and plan as written. Number of minutes spent on the visit: 30. TOVA Aaron
== END 2024-02-12 14:31 | disposition home or self-care (01) ==
LOC: EC 08:59
DX: G89.18 Other acute postprocedural pain (principal); R07.89 Other chest pain; Z88.2 Allergy status to sulfonamides
CPT/HCPCS: 99285 ×2; 96374 ×2; 36415; 93005; 80053; 84484; 85025; 71046; 51702; J2270

== ENCOUNTER → 2024-04-28 | Outpatient (CLI) | payer MEDICARE, BC ==
[2024-04-28 13:46] LABS: African American GFR (CKD) >90 (>60 ml/min/1.73 sqM); Blood Urea Nitrogen 19 mg/dL (7-17); Non-African American GFR(CKD) >90 (>60 ml/min/1.73 sqM)
--- NOTE | 2024-04-28 14:26 | CT ---
EXAMINATION TYPE: CT chest w con DATE OF EXAM: 04/28/2024 COMPARISON: 11/08/2023 HISTORY: f/u lung ca CT DLP: 562 mGycm Automated exposure control for dose reduction was used. CONTRAST: CT scan of the chest is performed with IV Contrast, patient injected with 100ml mL of Isovue 300. FINDINGS: LUNGS: Postoperative changes right lung with previously noted mass no longer visible. There is pleura l thickening and right basilar pleural effusion. Pleural-parenchymal scarring without evidence for re current mass at this time. Previously noted 6.8 mm nodule left upper lobe is poorly characterized how ever nodular density may be present at 4.6 mm. MEDIASTINUM: There are no greater than 1 cm hilar or mediastinal lymph nodes. No pericardial effusi on is seen. Thoracic aorta is of normal caliber. The heart is not enlarged. UPPER ABDOMEN: No significant abnormality appreciated. OTHER: No additional significant abnormality is seen. IMPRESSION: Postoperative changes right lung with previously noted mass no longer visible. There is pleural thick ening and right basilar pleural effusion. Pleural-parenchymal scarring without evidence for recurrent mass at this time. Previously noted 6.8 mm nodule left upper lobe is poorly characterized however no dular density may be present at 4.6 mm.
== END | disposition home or self-care (01) ==
LOC: RADCTMAIN 12:36
PROVIDERS: ATTEND Internal Medicine
DX: C56.1 Malignant neoplasm of right ovary (principal); C34.31 Malignant neoplasm of lower lobe, right bronchus or lung; C15.5 Malignant neoplasm of lower third of esophagus; J90 Pleural effusion, not elsewhere classified; I10 Essential (primary) hypertension; E78.2 Mixed hyperlipidemia; Z71.89 Other specified counseling; Z71.3 Dietary counseling and surveillance
CPT/HCPCS: 82565; 84520; 71260; 36415; Q9967

== ENCOUNTER → 2024-09-02 | Outpatient (CLI) | payer MEDICARE, BC ==
[2024-09-02 11:16] LABS: African American GFR (CKD) >90 (>60 ml/min/1.73 sqM); Blood Urea Nitrogen 20 mg/dL (7-17); Non-African American GFR(CKD) 88 (>60 ml/min/1.73 sqM)
--- NOTE | 2024-09-02 12:05 | CT ---
EXAMINATION TYPE: CT chest w con CT DLP: 559 mGycm, Automated exposure control for dose reduction was used. DATE OF EXAM: 09/02/2024 11:49 AM COMPARISON: CT chest 04/28/2024, 11/08/2023, PET CT 10/11/2023, 04/07/2022 CLINICAL INDICATION:Female, 83 years old with history of C34.31 Lung ca; PHH, hx of rt lung ca with l obectomy january 2024 TECHNIQUE: Multiple axial images were obtained through the chest following the administration of 100 cc of Isovue 300. . Coronal and sagittal reformats reviewed. FINDINGS: LUNGS/ PLEURA: No pneumothorax. Trace right pleural effusion. Postoperative changes of the right lung redemonstrated with some similar scarring visualized. No evidence for recurrent mass. Stable nodula r density within the left apex abutting the major fissure measuring 4.7 mm, previously 4.6 mm (series 4, image 10). No new or enlarging pulmonary nodules. AIRWAY: Patent and unremarkable.. HEART: The heart is mildly increased in size..No pericardial effusion. MEDIASTINUM: No evidence of adenopathy. VASCULATURE: No aortic aneurysm. Mild atherosclerotic calcification of the aorta and its branches. MUSCULOSKELETAL: No acute osseous abnormalities. Bilateral shoulder arthropathy. Diffuse bone deminer alization. Moderate multilevel degenerative disease. No aggressive osseous lesion. Scoliotic curvatur e of the thoracic spine. SOFT TISSUES/LYMPH NODES: Unremarkable. LOWER NECK: Heterogenous appearance of the thyroid gland. UPPER ABDOMEN: Small hiatal hernia. Low attenuation of the liver suggesting fatty infiltration. IMPRESSION: 1. Postsurgical changes of the right lung with residual scarring demonstrated. No definitive evidenc e for recurrent mass. 2. Stable pulmonary nodule within the left apex. No new or enlarging pulmonary nodules. 3. Stable trace right pleural effusion. [facility], , 09/02/2024 12:03 PM
== END | disposition home or self-care (01) ==
LOC: RADCTMAIN 10:36
PROVIDERS: ATTEND Internal Medicine
DX: J44.9 Chronic obstructive pulmonary disease, unspecified (principal); C34.31 Malignant neoplasm of lower lobe, right bronchus or lung; I51.9 Heart disease, unspecified; R91.1 Solitary pulmonary nodule; J90 Pleural effusion, not elsewhere classified; J98.4 Other disorders of lung; Z80.8 Family history of malignant neoplasm of other organs or systems; M41.84 Other forms of scoliosis, thoracic region; I70.0 Atherosclerosis of aorta
CPT/HCPCS: 82565; 84520; 71260; 36415; Q9967